=== PATIENT | male | born 1985 | race Caucasian/White ===

== ENCOUNTER 2018-09-28 08:33 | Emergency (ER) | payer MEDICARE, MEDICAID, SELFPAY ==
[2018-09-28 08:37] VITALS: BP 132/94; PULSE 113; RESP 18; TEMP 37.3; O2SAT 97
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
[2018-09-28 09:23] VITALS: BP 132/94; PULSE 113; RESP 18; TEMP 37.1; O2SAT 97
== END 2018-09-28 09:25 | disposition home or self-care (01) ==
LOC: ER 09:19
PROVIDERS: Emergency Provider Student in an Organized Health Care Education/Training Program; PCP Family Medicine
DX: S70.01XA Contusion of right hip, initial encounter (principal); R51 Headache; S61.254A Open bite of right ring finger without damage to nail, initial encounter; Y04.8XXA Assault by other bodily force, initial encounter
CPT/HCPCS: 99283; 73502

== ENCOUNTER 2019-04-19 14:58 | Outpatient (CLI) | payer MEDICARE, MEDICAID, SELFPAY ==
[2019-04-20 09:31] LABS: HIV-1/2 Ag & Ab Screen Negative (NEGAT); Hepatitis C Ab w Rflx HCV PCR Negative (NEGAT)
[2019-04-23 14:29] LABS: Chlamydia Result Negative; GC Result Negative; Specimen Description URINE
== END 2019-04-19 15:18 ==
PROVIDERS: PCP Family Medicine; Visit Provider Family Medicine
DX: Z11.59 Encounter for screening for other viral diseases (principal); Z11.4 Encounter for screening for human immunodeficiency virus [HIV]; Z11.3 Encounter for screening for infections with a predominantly sexual mode of transmission; F90.0 Attention-deficit hyperactivity disorder, predominantly inattentive type; K62.5 Hemorrhage of anus and rectum
CPT/HCPCS: 36415; 86803; 87389; 87491; 87591

== ENCOUNTER 2019-07-24 08:00 | Inpatient (IN) | payer MEDICARE, MEDICAID, SELFPAY ==
[2019-07-24] VITALS (76 sets, daily range): BP systolic 114–137; BP diastolic 73–87; PULSE 89–118; RESP 12–31; TEMP 36–37.6; O2SAT 87–98
--- NOTE | 2019-07-24 08:54 | ED.GENADUL_ITS ---
Discharge Plan Disposition Patient Disposition: [facility] INPATIENT Condition: Stable Discharge Details Chief Complaint: Abd Prob Clinical Impression: Colitis, Unintentional Tylenol overdose Admit Date/Time: 07/24/19 11:17 Admit Provider: Sharon Pride Attending Provider: Sharon Pride Primary Care Provider: Julian Bishop ED Provider: Peace Hudson Discharge Data Discharge Date/Time-TO BE ENTERED AT DEPARTURE: 07/24/19 12:20 Medical Decision Making 0830 -- 33-year-old male with a history of schizoid personality disorder, ADHD presents with diffuse intermittent dull aching abdominal pain and bloody diarrhea for the past 4 months, now more intense and constant for the past month and worse over the past week. Denies recent travel, antibiotics. Family history of Crohn's disease. He states he was a former heavy alcohol drinker, but has stopped over the past month. Patient was seen twice at [facility] in the past 2 weeks for the same complaint. First in the ED and diagnosed with bacterial infection discharged. Then he returned when symptoms worsened and he was admitted and diagnosed with colitis and had multiple CAT scans and was treated with antibiotics. He states he left AMA from the hospital yesterday when he feels that staff was lying about his bowel movements, and he did not feel safe there as he states the nurse accused him of taking drugs which he states he was not. He states the nurse acc used him of taking drugs because I was drowsy there. He states he was receiving oxycodone every 4 hours and he feels now his symptoms are worse because he is withdrawing from the oxycodone. He also states he was hearing and seeing things and hallucinating. He states he was hearing people scream and seeing squiggly lines on the murray. He states he was supposed to have a colonoscopy while admitted but they held this due to him still having loose stools. He also states the doctor was about to do the colonoscopy when the nurse told him he was having formed stools but he states the nurse was lying about this and when he told staff the truth that his stool was still diarrhea, they did not do the colonoscopy. He states last night he took 10 tabs of extra strength Tylenol to help with the pain. He denies any suicidal ideation. Patient appears pale. Heart rate 100s. Afebrile. His abdomen is mildly tense and diffusely tender but no rigidity. Normal exam. Differential diagnosis includes colitis, infectious diarrhea, diverticulitis, gastritis, hemorrhoids. Will place an IV, bolus IV fluids, morphine, screening labs, type and screen, Tylenol level, and CT abdomen and pelvis. 1000 --labs reviewed. Normal white blood cell count. Hemoglobin 12. Platelets 700. Potassium 3.1, will replete. AST 112, has been in the 300s in 2014, ALT 88, has been in the 100s in 2014. Lipase normal. Tylenol level 32. CT notes infectious versus inflammatory colitis. With patient's family history of Crohn's disease, could certainly be inflammatory colitis. 1010 --Case discussed with poison control recommend treating with N- acetylcysteine as the toxic dose that recommends treatment 12 hours postingestion would be 30 and patient is 33. Case discussed with patient again at bedside and he specifically said earlier that he took all the Tylenol last evening but now he is stating he thinks he took more than 10 and he has been taking them this morning. Discussed again with poison control and they are still recommending treatment with NAC. 1030 --discussed with hospitalist who accepts patient for admission. Patient is hemodynamically stable. Medical Records Medical records reviewed: Yes I reviewed the patient's medical records. Imaging Data Radiologic Study: Radiologist's impression: CT ABDOMEN PELVIS W CLINICAL HISTORY: diffuse abd pain, r/o acute abdominal process, BLOOD IN STOOL,? COLITIS OR DIVERTICULITIS TECHNIQUE: Imaging Protocol: Axial computed tomography images with coronal and sagittal reformatted images were created and reviewed CONTRAST MATERIAL: Intravenous: Omnipaque 350 Contrast volume:100 mL contrast route:IV - Oral: No COMPARISON: No exams were available for comparison FINDINGS: ABDOMEN: Lung Bases: Unremarkable. Liver: There does appear to be diffuse decreased attenuation of the liver suggesting hepatic steatosis. No hepatic mass is seen. The portal, superior mesenteric and splenic veins are patent Gallbladder and biliary tract: No radiodense calculus or dilation. Pancreas: Normal density, no abnormal calcifications or inflammatory process. Spleen: Normal. Kidneys: Normal size, contour and axis. No radiodense stones or obstructive uropathy. There are few tiny hypodensities seen in the kidneys bilaterally. They are too small for further characterization. These likely reflect small cysts. No suspicious solid mass is seen in the kidneys. Adrenal glands: No masses seen. Abdominal Aorta: Abdominal portion non-dilated. PELVIS: Bladder: Symmetric distention, no gross wall thickening. Bowel: There is diffuse moderate thickening of the wall of the colon extending from the ascending colon to the rectum. No evidence of diverticulosis is seen. There is no pneumatosis. Pericolonic inflammatory changes are seen. There is no evidence of acute appendicitis. Peritoneal cavity: No ascites, collection or mesenteric inflammatory response. Bones: Within normal limits for the patient's age. Reproductive organs: Within normal limits. Lymph nodes: There are mildly enlarged lymph nodes seen in the right lower quadrant of the abdomen. These are likely reactive. Impression: Diffuse moderate thickening of the wall of the colon from the ascending colon to the rectum. Inflammatory colitis should be considered. Infectious colitis cannot be entirely excluded. No evidence of pneumoperitoneum or abscess. These findings were discussed with the emergency department on the date of the examination. Lab Data Lab results reviewed: Yes I reviewed the patient's lab results. Labs: 07/24/19 11:36 Stool Clostridioides difficile Screen - Pending Laboratory Tests Range/Units 07/24/19 07/24/19 07/24/19 08:18 08:18 08:18 WBC (4.4-10.8) k/cumm 7.80 RBC (4.50-6.00) m/cumm 4.82 Hgb (13.5-17.5) g/dL 12.2 L Hct (40.0-50.0) % 38.9 L MCV (80-95) fL 80.7 MCH (27.0-33.0) pg 25.3 L MCHC (32.0-36.0) g/dL 31.4 L RDW (11.8-14.1) % 15.6 H Plt Count (130-400) x1000/uL 700 H MPV (8.0-11.0) fL 8.5 Immature Gran % 0.0 Neutrophils % 65.0 Band Neutrophils % % 6.0 Lymphocytes % 12.0 Monocytes % 13.0 Eosinophils % 4.0 Basophils % 0.0 Absolute Neutrophils (1.2-6.7) k/cumm 5.54 Absolute Lymphocytes (1.2-3.4) k/cumm 0.94 L Absolute Monocytes (0.11-0.7) k/cumm 1.01 H Absolute Eosinophils (0.0-0.7) k/cumm 0.31 Absolute Basophils (0.0-0.2) k/cumm 0.00 Differential Comment Manual differential RBC Morphology See below Polychromasia Present Poikilocytosis 2+ Sodium (136-145) mmol/L 140 Potassium (3.5-5.1) mmol/L 3.1 L Chloride (98-107) mmol/L 102 Carbon Dioxide (21.0-32.0) mmol/L 26.7 Anion Gap (3-11) mmol/L 11.3 H BUN (7-18) mg/dL 4 L Creatinine (0.70-1.30) mg/dL 0.99 Estimated GFR/1.73 m2 (mL/min/1.73m2) >= 60.00 Glucose (74-106) mg/dL 128 H Calcium (8.5-10.1) mg/dL 8.4 L Total Bilirubin (0.2-1.0) mg/dL 0.4 AST (15-37) U/L 112 H ALT (16-63) U/L 88 H Alkaline Phosphatase (46-116) U/L 171 H Total Protein (6.4-8.2) g/dL 7.2 Albumin (3.4-5.0) g/dL 2.1 L Lipase (73-393) U/L 78 Salicylates (2.8-20.0) mg/dL Urine Opiates Screen (Negative) Urine Methadone Screen (Negative) Acetaminophen (10-30) ug/mL 32 H Ur Barbiturates Screen (Negative) Ur Tricyclics Screen (Negative) Ur Amphetamines Screen (Negative) U Benzodiazepines Scrn (Negative) Urine Cocaine Screen (Negative) Ur THC Screen (Negative) Patient ABO/Rh Antibody Screen Range/Units 07/24/19 07/24/19 07/24/19 08:18 08:18 11:04 WBC (4.4-10.8) k/cumm RBC (4.50-6.00) m/cumm Hgb (13.5-17.5) g/dL Hct (40.0-50.0) % MCV (80-95) fL MCH (27.0-33.0) pg MCHC (32.0-36.0) g/dL RDW (11.8-14.1) % Plt Count (130-400) x1000/uL MPV (8.0-11.0) fL Immature Gran % Neutrophils % Band Neutrophils % % Lymphocytes % Monocytes % Eosinophils % Basophils % Absolute Neutrophils (1.2-6.7) k/cumm Absolute Lymphocytes (1.2-3.4) k/cumm Absolute Monocytes (0.11-0.7) k/cumm Absolute Eosinophils (0.0-0.7) k/cumm Absolute Basophils (0.0-0.2) k/cumm Differential Comment RBC Morphology Polychromasia Poikilocytosis Sodium (136-145) mmol/L Potassium (3.5-5.1) mmol/L Chloride (98-107) mmol/L Carbon Dioxide (21.0-32.0) mmol/L Anion Gap (3-11) mmol/L BUN (7-18) mg/dL Creatinine (0.70-1.30) mg/dL Estimated GFR/1.73 m2 (mL/min/1.73m2) Glucose (74-106) mg/dL Calcium (8.5-10.1) mg/dL Total Bilirubin (0.2-1.0) mg/dL AST (15-37) U/L ALT (16-63) U/L Alkaline Phosphatase (46-116) U/L Total Protein (6.4-8.2) g/dL Albumin (3.4-5.0) g/dL Lipase (73-393) U/L Salicylates (2.8-20.0) mg/dL < 2.8 L Urine Opiates Screen (Negative) Positive A Urine Methadone Screen (Negative) Negative Acetaminophen (10-30) ug/mL Ur Barbiturates Screen (Negative) Negative Ur Tricyclics Screen (Negative) Negative Ur Amphetamines Screen (Negative) Negative U Benzodiazepines Scrn (Negative) Negative Urine Cocaine Screen (Negative) Negative Ur THC Screen (Negative) Negative Patient ABO/Rh A Positive Antibody Screen Negative ECG Data Attestation: I personally reviewed and interpreted this ECG (s) as follows: Interpretation: rate of 88, sinus, t wave inversion lead III, No acute ST elevat ion or depression. TN 150. QTc 450. QRS 90. HPI General Mode of arrival: ambulatory . Date/Time Provider Initiated Documentation: 07/24/19 08:12 . Limitations to Documentation: no limitations . Information obtained by: patient . History of Present Illness 33 year old M presents to the emergency department with the chief complaint of abdominal pain, diarrhea with rectal bleeding, Quality is described as aching and dull, and is localized to the abdomen. Patient reports no radiation. Patient started experiencing this month(s) (4 months, worse over the past month) and it has been constant. No relieving factors improve symptom(s), No exacerbating factors reported . Patient notes fever/chills, loss of appetite, malaise and nausea/vomiting (nausea, no vomiting); denies confusion, chest pain, cough, diaphoresis, headaches, rash, seizure, shortness of breath, syncope and weakness. Patient did receive the following treatments prior to arrival, none Related Data Home Medications Medication Instructions Recorded Confirmed melatonin 3 mg tablet 3 mg PO HS PRN tab 09/26/18 07/24/19 fluticasone propionate 50 2 spray ABRAHAM DAILY #15.8 gm 12/26/18 07/24/19 mcg/actuation nasal spray,suspension dextroamphetamine-amphetamine 30 30 mg PO BID #60 tab MDD 60 mg 05/17/19 07/24/19 mg tablet Previous Rx's Medication Instructions Recorded fluticasone propionate 50 2 spray ABRAHAM DAILY #15.8 gm 12/26/18 mcg/actuation nasal spray,suspension dextroamphetamine-amphetamine 30 30 mg PO BID #60 tab MDD 60 mg 05/17/19 mg tablet Allergies Allergy/AdvReac Type Severity Reaction Status Date / Time No Known Allergies Allergy Unverified 07/24/19 08:08 General Stated Complaint: Abd Prob JASEN: 3 Review of Systems All systems reviewed & are unremarkable except as noted in HPI and below Constitutional Constitutional: Reports as per HPI, Denies chills and Denies fever(s) Eyes Eyes: Denies blurry vision ENT Ears, Nose, Mouth, and Throat: Denies dizziness, Denies sore throat and Denies throat swelling Cardiovascular Cardiovascular: Denies chest pain and Denies dyspnea Respiratory Respiratory: Denies cough and Denies dyspnea Gastrointestinal Gastrointestinal: Reports abdominal pain, Reports hematochezia, Reports diarrhea, Reports nausea and Denies vomiting Genitourinary Genitourinary: Denies hematuria and Denies dysuria Musculoskeletal Musculoskeletal: Denies back pain and Denies numbness Integumentary/Breasts Skin/Breast: Denies lesions and Denies rash Neurologic Neurologic: Denies dizziness, Denies focal weakness and Denies numbness Allergic/Immunologic Allergic/Immunologic: Denies throat swelling [facility] Medical History (Updated 07/24/19 @ 13:56 by Sharon Pride MD) Allergic rhinitis (Chronic) Attention deficit hyperactivity disorder (ADHD), 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 Schizoid personality disorder (Chronic 08/18/15) Shoulder pain, right (Acute 08/18/15) Surgical History History of dental surgery (Acute) Family History Mother Crohn disease Paternal Grandfather Cancer head and neck cancer - smoker Other Diabetes Ulcerative colitis Social History Smoking/Tobacco Use Status: Former Tobacco Use Alcohol Intake: former Drug use: Occasionally Substance use type: marijuana Do you feel safe at home: No Do you feel safe in your relationship?: No Additional Social history: patient feels like he is going to from the abdominal pain. Exam Const General: cooperative, healthy appearing and no acute distress HENMT Head: normal to inspection Face and sinus: normal facial exam Eyes General: appearance normal, both eyes and all related structures EOM: EOM intact bilaterally Neck Neck: normal visual inspection and No submandibular swelling Lymphatic: no lymphadenopathy noted Chest Chest: normal inspection of the chest and no tenderness Resp Effort & Inspection: normal respiratory effort and able to speak in complete sentences Auscultation: clear to auscultation bilaterally Cardio Rate: regular rate Rhythm: regular rhythm GI Inspection: normal to inspection Palpation: not firm, not rigid and tender (diffuse, mild to moderate) Auscultation: normal bowel sounds and hypoactive bowel sounds Other: tensing of the abdomen with palpation. Male General Exam: Yes normal external exam Scrotum: scrotum normal Testes: no testicular swelling and no testicular tenderness Back/Spine/Pelvis Thoracic/Lumbar Spine: thoracic and lumbar spine normal to inspection Pelvis: no pain with anterior-posterior compression Skin General skin exam: no rashes or lesions noted and pallor Neuro General: alert, awake and oriented x3 Cognition: normal cognition Speech: speech normal Motor: muscle tone normal throughout Sensory Exam: no sensory deficits noted Extrem General: normal to inspection, full ROM, normal capillary refill, no calf t enderness bilaterally and no edema Psych Appearance: grossly normal Mental Status: mental status grossly normal Speech and Movement: speech and movement normal Affect: normal affect Course Vital Signs Vital signs: Vital Signs Temperature 97.7 F 07/24/19 08:03 Pulse 108 H 07/24/19 08:03 Respiratory Rate 16 07/24/19 08:03 Blood Pressure 137/87 07/24/19 08:03 Pulse Oximetry 98 07/24/19 08:03 Temperature 97.7 F 07/24/19 08:03 Temperature Source Temporal Artery Scan 07/24/19 08:03 Pulse 108 H 07/24/19 08:03 Respiratory Rate 16 07/24/19 08:03 Respiratory Effort Non-Labored 07/24/19 08:06 Blood Pressure 137/87 07/24/19 08:03 Blood Pressure Position Sitting 07/24/19 08:03 Pulse Oximetry 98 07/24/19 08:03 Oxygen Delivery Method Room Air 07/24/19 08:03 Oxygen Flow Rate 0 07/24/19 08:03 Pain Level 9 07/24/19 08:03
[2019-07-24] MEDS: Normal Saline Flush 10 ML SYR IVP ×6 (09:03→21:15)
[2019-07-24] MEDS: Normal Saline 1,000 ML 1000 ML IV (09:05)
[2019-07-24 09:11] LABS: Abs Immature Grans 0.02 k/cumm (0.0-0.09); HCT 38.9 % (40.0-50.0); HGB 12.2 g/dL (13.5-17.5); Mean Corp. HGB Concentration 31.4 g/dL (32.0-36.0); Mean Corpuscular Hemoglobin 25.3 pg (27.0-33.0); Mean Corpuscular Volume 80.7 fL (80-95); Mean Platelet Volume 8.5 fL (8.0-11.0); RBC 4.82 m/cumm (4.50-6.00); RBC Distribution Width 15.6 % (11.8-14.1)
[2019-07-24 09:23] LABS: ALT 88 U/L (16-63); AST 112 U/L (15-37); Albumin 2.1 g/dL (3.4-5.0); Alkaline Phosphatase 171 U/L (46-116); Anion Gap 11.3 mmol/L (3-11); BUN 4 mg/dL (7-18); Bilirubin, Total 0.4 mg/dL (0.2-1.0); CO2 26.7 mmol/L (21.0-32.0); CREATININE 0.99 mg/dL (0.70-1.30); Calcium 8.4 mg/dL (8.5-10.1); Chloride 102 mmol/L (98-107); Glucose 128 mg/dL (74-106); Lipase 78 U/L (73-393); Potassium 3.1 mmol/L (3.5-5.1); Sodium 140 mmol/L (136-145); Total Protein 7.2 g/dL (6.4-8.2)
[2019-07-24 09:30] LABS: Absolute Eosinophil Count 0.31 k/cumm (0.0-0.7); Absolute Lymphocyte Count 0.94 k/cumm (1.2-3.4); Absolute Monocyte Count 1.01 k/cumm (0.11-0.7); Absolute Neutrophil Count 5.54 k/cumm (1.2-6.7); Platelet Count 700 x1000/uL (130-400)
[2019-07-24 09:31] LABS: Diff Comment Manual Differential
[2019-07-24 09:32] LABS: Polychromasia Present
[2019-07-24 09:33] LABS: Poikilocytes 2+
--- NOTE | 2019-07-24 09:44 | DI.CT_ITS ---
EXAM: CT ABDOMEN PELVIS W CLINICAL HISTORY: diffuse abd pain, r/o acute abdominal process, BLOOD IN STOOL,? COLITIS OR DIVERTICULITIS TECHNIQUE: Imaging Protocol: Axial computed tomography images with coronal and sagittal reformatted images were created and reviewed CONTRAST MATERIAL: Intravenous: Omnipaque 350 Contrast volume:100 mL contrast route:IV - Oral: No COMPARISON: No exams were available for comparison FINDINGS: ABDOMEN: Lung Bases: Unremarkable. Liver: There does appear to be diffuse decreased attenuation of the liver suggesting hepatic steatosi s. No hepatic mass is seen. The portal, superior mesenteric and splenic veins are patent Gallbladder and biliary tract: No radiodense calculus or dilation. Pancreas: Normal density, no abnormal calcifications or inflammatory process. Spleen: Normal. Kidneys: Normal size, contour and axis. No radiodense stones or obstructive uropathy. There are few t iny hypodensities seen in the kidneys bilaterally. They are too small for further characterization. These likely reflect small cysts. No suspicious solid mass is seen in the kidneys. Adrenal glands: No masses seen. Abdominal Aorta: Abdominal portion non-dilated. PELVIS: Bladder: Symmetric distention, no gross wall thickening. Bowel: There is diffuse moderate thickening of the wall of the colon extending from the ascending col on to the rectum. No evidence of diverticulosis is seen. There is no pneumatosis. Pericolonic infl ammatory changes are seen. There is no evidence of acute appendicitis. Peritoneal cavity: No ascites, collection or mesenteric inflammatory response. Bones: Within normal limits for the patient's age. Reproductive organs: Within normal limits. Lymph nodes: There are mildly enlarged lymph nodes seen in the right lower quadrant of the abdomen. These are likely reactive. Impression: Diffuse moderate thickening of the wall of the colon from the ascending colon to the rectum. Inflamm atory colitis should be considered. Infectious colitis cannot be entirely excluded. No evidence of pneumoperitoneum or abscess. These findings were discussed with the emergency department on the date of the examination. DATA REPOSITORY: All CT scans at this facility are submitted to the National Radiology Data Registry (NRDR) Dose Index Registry (DIR) with the [employer] ([employer]). RADIATION OPTIMIZATION: All CT scans at this facility use at least one of these dose optimization te chniques: automated exposure control; mA and/or kV adjustment per patient size (includes targeted exa ms where dose is matched to clinical indication); or iterative reconstruction.
[2019-07-24] MEDS: Omnipaque 350 MG/ML 100 ML BTL IJ (09:53)
[2019-07-24] MEDS: Potassium Chloride 20 MEQ TABCR 40 MEQ PO (10:06)
[2019-07-24 10:10] LABS: Acetaminophen 32 ug/mL (10-30)
[2019-07-24 11:09] LABS: Salicylate < 2.8 mg/dL (2.8-20.0)
[2019-07-24] MEDS: HYDROmorphone 2 MG/ML VIAL 1 MG IVP ×3 (11:31→21:18)
[2019-07-24 11:38] LABS: *AMPHETAMINES SCREEN URINE Negative (Negative); *BARBITURATES SCREEN URINE Negative (Negative); *BENZODIAZEPINES SCREEN URINE Negative (Negative); Cannabinoids THC Negative (Negative); Cocaine Screen,Urine Negative (Negative); METHADONE URINE SCREEN Negative (Negative); OPIATES URINE SCREEN POSITIVE (Negative)
[2019-07-24 11:43] LABS: Tricyclic Antidepressants Negative (Negative)
[2019-07-24 12:12] LABS: Anion Gap 10.8 mmol/L (3-11); BUN 4 mg/dL (7-18); CO2 23.2 mmol/L (21.0-32.0); CREATININE 0.71 mg/dL (0.70-1.30); Calcium 7.6 mg/dL (8.5-10.1); Chloride 107 mmol/L (98-107); Glucose 123 mg/dL (74-106); Potassium 3.7 mmol/L (3.5-5.1); Sodium 141 mmol/L (136-145)
[2019-07-24 12:13] LABS: INR 1.6 (0.9-1.1); Prothrombin Time 15.7 sec (9.3-11.0)
--- NOTE | 2019-07-24 12:34 | W.PM.HP.N ---
Date of service: 07/24/19 Time of Service: 12:34 Assessment and Plan Assessment and plan (1) Tylenol toxicity: Status: Acute Assessment and plan: Appears to be due to an unintentional tylenol overdose. Will complete the 21 hour N-acetylcysteine infusion, monitoring tylenol levels, BMP, LFTs, and INR. Admit to the ICU. I am alarmed that the LFTs, which were normal at [facility] are now elevated - technically, he is now Child-Cochran Class B. His INR is also elevated (1.6). Low threshold to transfer to a tertiary care facility with a hepatology service. (2) Transaminitis: Status: Acute Assessment and plan: Does have a history of hepatic steatosis. In our system, we have LFTs which were elevated in 2013 - however, [facility] has record of them being normal within the last 2 weeks. Currently, qualifies for Child Srinivasa Class B, but it needs to be noted that his transaminitis is acute. As above - if worsens, will need transfer to a tertiary care center with Hepatology services. (3) Coagulopathy: Status: Acute Assessment and plan: Could be part of tylenol hepatotoxicity. However, given reports of BRBPR, I feel vitamin K would be beneficial. Will monitor serial INRs. (4) Acute hemorrhagic colitis: Status: Acute Assessment and plan: With family history of IBD (per patient, both Crohn's and UC). I am going to do further investigation into workup done at [place] - I could not see results of stool studies or ASCA/ANCA tests in the records that the ED had received. Will inquire. For now, obtain stool studies. Abstain from antibiotics - they were not helpful previously. Trial a low dose of budesonide (low dose because of the hepatic function situation above). He has not yet had a colonoscopy. Consult general surgery. Avoid chemical DVT ppx at this time (initiate if/when bleeding stopes - IBD is a hypercoagulable state). (5) Hypokalemia: Status: Chronic Assessment and plan: Replete and monitor. (6) Schizoid personality disorder: Status: Chronic Assessment and plan: For now, appears to be psychiatrically stable. Will monitor patient; treat anxiety as it occurs. (7) Attention deficit hyperactivity disorder (ADHD), predominantly inattentive type: Status: Chronic Assessment and plan: The patient had not been taking his dextroamphethamine for the last 2-3 weeks. Will abstain for now. (8) DVT prophylaxis: Status: Acute Assessment and plan: TEDs + SCDS - avoid chemical DVT ppx in setting of BRBPR (9) Discharge planning issues: Status: Acute Assessment and plan: Full code Admit to ICU. Total Critical Care Time 70 minutes. History of Present Illness History of Present Illness Chief Complaint: I hurt so much, I did not know what else to do, and all I had was tylenol Narrative: Mr Santana is a 33 year old male with PMHx of ADHD, schizoid personality, hepatic steatosis, strong family history of both Crohn's and, reportedly, UC, who was undergoing treatment for acute colitis for about the last 2 weeks at the [facility], but left AMA yesterday because, per patient, he had concerns about his safety there, whom the hospitalist service was asked to admit for an unintentional tylenol overdose in addition to management of the ongoing colitis. The patient states that his mother took him to the pharmacy yesterday after he left the hospitalist, and he picked up extra strength tylenol as well as tylenol PM. He states that he was taking 2 pills at a time, spaced out by several hours, and he estimates he took between 8 and 11 pills overall since last night. He was taking the tylenol for his diffuse abdominal pain from the colitis. He also felt that he might be going through opioid withdrawal (was on opioids at the [facility]), and he was hoping that the tylenol would help him with the symptoms. He adamantly denies any suicidal ideation, stating that he sleeps with a gun in the bedroom - if he wanted to kill himself, he had much easier ways of doing so! No, tylenol was for the pain. He states he did not know that tylenol can be this dangerous. In the ED, the patient was found to have mildly elevated LFTs, a tylenol level of 32 ug/mL. Poison control was consulted and recommended initiating infusion of N-acetylcysteine. Otherwise, the patient reports feeling cold and being unable to warm up, unintentional weight loss (he cannot tell me how much), denies sores in his mouth, dry/painful eyes, joint aches or rashes. Denies chest pain, shortness of breath, fevers, vomiting. He has had some nausea. There has been bright red blood in his stool, on and off. He cannot estimate an amount of blood. He endorses a lot of flatus. He feels better now than he did last night. He stated that antibiotics he was given for treatment of colitis did not help at all. He states that budesonide was the only thing that did help. Review of Systems Narrative: 12 systems reviewed. Pertinent positives and negatives are as per HPI. [facility] Medical History (Updated 07/24/19 @ 13:56 by Sharon Pride MD) Allergic rhinitis (Chronic) Attention deficit hyperactivity disorder (ADHD), 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 Schizoid personality disorder (Chronic 08/18/15) Shoulder pain, right (Acute 08/18/15) Surgical History History of dental surgery (Acute) Family History (Updated 07/24/19 @ 13:45 by Sharon Pride MD) Mother Crohn disease Paternal Grandfather Cancer head and neck cancer - smoker Other Diabetes Ulcerative colitis Social History Smoking/Tobacco Use Status: Former Tobacco Use Alcohol Intake: former Drug use: Occasionally Substance use type: marijuana Do you feel safe at home: No Do you feel safe in your relationship?: No Additional Social history: patient feels like he is going to from the abdominal pain. Meds Home Medications and Allergies Home Medications Medication Instructions Recorded Confirmed Type melatonin 3 mg tablet 3 mg PO HS PRN tab 09/26/18 07/24/19 History fluticasone propionate 50 2 spray ABRAHAM DAILY #15.8 gm 12/26/18 07/24/19 Rx mcg/actuation nasal spray,suspension dextroamphetamine-amphetamine 30 30 mg PO BID #60 tab MDD 60 mg 05/17/19 07/24/19 Rx mg tablet Allergies Allergy/AdvReac Type Severity Reaction Status Date / Time No Known Allergies Allergy Unverified 07/24/19 08:08 Exam Narrative Exam Narrative: General: Very anxious, pale male, easily scared, A&Ox3, appears cold and is covered in multiple blankets Neurological: A&Ox3, no focal deficits Psychiatric: anxious, but reasonable, can be reassured, not suicidal Skin: pale, cracked lips, otherwise, intact HEENT: Atraumatic, normocephalic, EOMI, dry MM, cracked lips, clear oropharynx, no lymphadenopathy, goiter, or JVD Cardiovascular: RRR, no m/r/g Lungs: CTAB Gastrointestinal: abdomen soft, mildly distended, diffusely tender Genitourinary: deferred Extremities: no e/c/c BLE's, 2+ pedal pulses B Results Imaging Additional studies: CT abdomen/pelvis w/ contrast: Diffuse moderate thickening of the wall of the colon from the ascending colon to the rectum. Inflammatory colitis should be considered. Infectious colitis cannot be entirely excluded. No evidence of pneumoperitoneum or abscess. EKG: NSR, HR 88, no acute ischemia, nonspecific ST-T changes Labs Result diagrams: 07/24/19 08:18 07/24/19 11:53 Labs: Laboratory Results - last 24 hr 07/24/19 07/24/19 07/24/19 08:18 08:18 08:18 WBC 7.80 RBC 4.82 Hgb 12.2 L Hct 38.9 L MCV 80.7 MCH 25.3 L MCHC 31.4 L RDW 15.6 H Plt Count 700 H MPV 8.5 Immature Gran % 0.0 Neutrophils % 65.0 Band Neutrophils % 6.0 Lymphocytes % 12.0 Monocytes % 13.0 Eosinophils % 4.0 Basophils % 0.0 Absolute Neutrophils 5.54 Absolute Lymphocytes 0.94 L Absolute Monocytes 1.01 H Absolute Eosinophils 0.31 Absolute Basophils 0.00 Differential Comment Manual differential RBC Morphology See below Polychromasia Present Poikilocytosis 2+ PT INR Sodium 140 Potassium 3.1 L Chloride 102 Carbon Dioxide 26.7 Anion Gap 11.3 H BUN 4 L Creatinine 0.99 Estimated GFR/1.73 m2 >= 60.00 Glucose 128 H Calcium 8.4 L Total Bilirubin 0.4 AST 112 H ALT 88 H Alkaline Phosphatase 171 H Total Protein 7.2 Albumin 2.1 L Lipase 78 Stool Campylobacter PCR Stool Salmonella PCR Stool Shigella PCR Salicylates Urine Opiates Screen Urine Methadone Screen Acetaminophen 32 H Ur Barbiturates Screen Ur Tricyclics Screen Ur Amphetamines Screen U Benzodiazepines Scrn Urine Cocaine Screen Ur THC Screen Shiga Toxin (PCR) Patient ABO/Rh Antibody Screen 07/24/19 07/24/19 07/24/19 08:18 08:18 11:04 WBC RBC Hgb Hct MCV MCH MCHC RDW Plt Count MPV Immature Gran % Neutrophils % Band Neutrophils % Lymphocytes % Monocytes % Eosinophils % Basophils % Absolute Neutrophils Absolute Lymphocytes Absolute Monocytes Absolute Eosinophils Absolute Basophils Differential Comment RBC Morphology Polychromasia Poikilocytosis PT INR Sodium Potassium Chloride Carbon Dioxide Anion Gap BUN Creatinine Estimated GFR/1.73 m2 Glucose Calcium Total Bilirubin AST ALT Alkaline Phosphatase Total Protein Albumin Lipase Stool Campylobacter PCR Stool Salmonella PCR Stool Shigella PCR Salicylates < 2.8 L Urine Opiates Screen Positive A Urine Methadone Screen Negative Acetaminophen Ur Barbiturates Screen Negative Ur Tricyclics Screen Negative Ur Amphetamines Screen Negative U Benzodiazepines Scrn Negative Urine Cocaine Screen Negative Ur THC Screen Negative Shiga Toxin (PCR) Patient ABO/Rh A Positive Antibody Screen Negative 07/24/19 07/24/19 07/24/19 11:53 11:53 12:15 WBC RBC Hgb Hct MCV MCH MCHC RDW Plt Count MPV Immature Gran % Neutrophils % Band Neutrophils % Lymphocytes % Monocytes % Eosinophils % Basophils % Absolute Neutrophils Absolute Lymphocytes Absolute Monocytes Absolute Eosinophils Absolute Basophils Differential Comment RBC Morphology Polychromasia Poikilocytosis PT 15.7 H INR 1.6 H Sodium 141 Potassium 3.7 Chloride 107 Carbon Dioxide 23.2 Anion Gap 10.8 BUN 4 L Creatinine 0.71 Estimated GFR/1.73 m2 >= 60.00 Glucose 123 H Calcium 7.6 L Total Bilirubin AST ALT Alkaline Phosphatase Total Protein Albumin Lipase Stool Campylobacter PCR Cancelled Stool Salmonella PCR Cancelled Stool Shigella PCR Cancelled Salicylates Urine Opiates Screen Urine Methadone Screen Acetaminophen Ur Barbiturates Screen Ur Tricyclics Screen Ur Amphetamines Screen U Benzodiazepines Scrn Urine Cocaine Screen Ur THC Screen Shiga Toxin (PCR) Cancelled Patient ABO/Rh Antibody Screen Last Vital Signs Temp 36.5 C 07/24/19 08:03 Pulse 93 H 07/24/19 12:00 Resp 16 07/24/19 12:10 BP 124/82 07/24/19 12:00 Pulse Ox 95 07/24/19 12:10
[2019-07-24] MEDS: Ondansetron 4 MG/2 ML VIAL IVP ×2 (12:53→20:03)
[2019-07-24 13:06] LABS: ALT 97 U/L (16-63); AST 120 U/L (15-37); Acetaminophen 13 ug/mL (10-30); Albumin 1.6 g/dL (3.4-5.0); Alkaline Phosphatase 140 U/L (46-116); Bilirubin, Total 0.4 mg/dL (0.2-1.0); Total Protein 5.4 g/dL (6.4-8.2)
[2019-07-24 13:22] LABS: Bilirubin, Direct 0.18 mg/dL (0.00-0.20)
[2019-07-24 13:30] LABS: C-Reactive Protein 8.73 mg/dL (0.0-0.3)
[2019-07-24] MEDS: Phytonadione 5 MG TABLET PO (14:30)
[2019-07-24] MEDS: LORazepam 2 MG/ML VIAL 0.5 MG IVP ×2 (14:31→21:18)
[2019-07-24 14:57] LABS: ESR 87 mm/hr (0-15)
--- NOTE | 2019-07-24 17:27 | W.SURGCON ---
Date of service: 07/24/19 Time of Service: 17:28 Assessment and Plan Assessment and plan (1) Acute hemorrhagic colitis: Status: Acute Assessment and plan: A\\ 33 year old with most likely inflammatory bowel disease. Patient has been started on low dose Budesonide. Unable to give him regular dose due to his liver toxicity from tylenol. P\\ Agree with clear liquid diet, budesonide or prednisone if that is better for his liver. Once better controlled then can do a colonoscopy as inpatient vs outpatient follow up with [place] [email or web address] History of Present Illness History of Present Illness Chief Complaint: Colitis Narrative: Mr Santana is a 33 year old male with PMHx of ADHD, schizoid personality, hepatic steatosis, strong family history of both Crohn's and, reportedly, UC, who was undergoing treatment for acute colitis for about the last 2 weeks at the [facility], but left AMA yesterday because, per patient, he had concerns about his safety there, whom the hospitalist service was asked to admit for an unintentional tylenol overdose in addition to management of the ongoing colitis. The patient states that his mother took him to the pharmacy yesterday after he left the hospitalist, and he picked up extra strength tylenol as well as tylenol PM. He states that he was taking 2 pills at a time, spaced out by several hours, and he estimates he took between 8 and 11 pills overall since last night. He was taking the tylenol for his diffuse abdominal pain from the colitis. He also felt that he might be going through opioid withdrawal (was on opioids at the [facility]), and he was hoping that the tylenol would help him with the symptoms. He adamantly denies any suicidal ideation, stating that he sleeps with a gun in the bedroom - if he wanted to kill himself, he had much easier ways of doing so! No, tylenol was for the pain. He states he did not know that tylenol can be this dangerous. In the ED, the patient was found to have mildly elevated LFTs, a tylenol level of 32 ug/mL. Poison control was consulted and recommended initiating infusion of N-acetylcysteine. Otherwise, the patient reports feeling cold and being unable to warm up, unintentional weight loss (he cannot tell me how much), denies sores in his mouth, dry/painful eyes, joint aches or rashes. Denies chest pain, shortness of breath, fevers, vomiting. He has had some nausea. There has been bright red blood in his stool, on and off. He cannot estimate an amount of blood. He endorses a lot of flatus. He feels better now than he did last night. He stated that antibiotics he was given for treatment of colitis did not help at all. He states that budesonide was the only thing that did help. Consults Consult date: 07/24/19 Requesting physician: Sharon Pride Review of Systems Constitutional Constitutional: Denies fatigue, Denies fever(s), Reports malaise and Denies weight loss Eyes Eyes: Denies change in vision ENT Ears, Nose, Mouth, and Throat: Denies dysphagia Cardiovascular Cardiovascular: Denies chest pain, Denies chest pain at rest, Denies rapid heart rate, Denies irregular heart rhythm, Denies palpitations, Denies dyspnea and Denies dyspnea on exertion Respiratory Respiratory: Denies dyspnea and Denies dyspnea on exertion Gastrointestinal Gastrointestinal: Reports as per HPI and Denies dysphagia Genitourinary Genitourinary: Denies hematuria and Denies dysuria Musculoskeletal Musculoskeletal: Reports system reviewed and no additional complaints, except as docu Endocrine Endocrine: Denies fatigue and Denies palpitations [facility] Medical History Allergic rhinitis (Chronic) Attention deficit hyperactivity disorder (ADHD), 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 Schizoid personality disorder (Chronic 08/18/15) Shoulder pain, right (Acute 08/18/15) Surgical History History of dental surgery (Acute) Family History Mother Crohn disease Paternal Grandfather Cancer head and neck cancer - smoker Other Diabetes Ulcerative colitis Social History Smoking/Tobacco Use Status: Former Tobacco Use Alcohol Intake: former Drug use: Occasionally Substance use type: marijuana Do you feel safe at home: No Do you feel safe in your relationship?: No Additional Social history: patient feels like he is going to from the abdominal pain. Exam Const General: cooperative, comfortable and no acute distress Orientation: alert and oriented x3 HENMT Head: normocephalic and atraumatic Eyes Pupils: PERRL Resp Effort & Inspection: normal respiratory effort Auscultation: clear to auscultation bilaterally Cardio Rate: regular rate Rhythm: regular rhythm Heart Sounds: no gallops, no murmurs and no rubs GI Inspection: normal to inspection Palpation: soft and tender (Lower abdomen LLQ >RLQ, no rebound) Auscultation: normal bowel sounds Results Last Vital Signs Temp 98.2 F 07/24/19 16:02 Pulse 103 H 07/24/19 13:05 Resp 24 07/24/19 13:05 BP 124/82 07/24/19 13:05 Pulse Ox 96 07/24/19 13:05 Labs Result diagrams: 07/24/19 08:18 07/24/19 11:53 Labs: Laboratory Results - last 24 hr 07/24/19 07/24/19 07/24/19 08:18 08:18 08:18 WBC 7.80 RBC 4.82 Hgb 12.2 L Hct 38.9 L MCV 80.7 MCH 25.3 L MCHC 31.4 L RDW 15.6 H Plt Count 700 H MPV 8.5 Immature Gran % 0.0 Neutrophils % 65.0 Band Neutrophils % 6.0 Lymphocytes % 12.0 Monocytes % 13.0 Eosinophils % 4.0 Basophils % 0.0 Absolute Neutrophils 5.54 Absolute Lymphocytes 0.94 L Absolute Monocytes 1.01 H Absolute Eosinophils 0.31 Absolute Basophils 0.00 Differential Comment Manual differential RBC Morphology See below Polychromasia Present Poikilocytosis 2+ ESR PT INR Sodium 140 Potassium 3.1 L Chloride 102 Carbon Dioxide 26.7 Anion Gap 11.3 H BUN 4 L Creatinine 0.99 Estimated GFR/1.73 m2 >= 60.00 Glucose 128 H Calcium 8.4 L Total Bilirubin 0.4 Conjugated Bilirubin AST 112 H ALT 88 H Alkaline Phosphatase 171 H C-Reactive Protein Total Protein 7.2 Albumin 2.1 L Lipase 78 Stool Campylobacter PCR Stool Salmonella PCR Stool Shigella PCR Salicylates Urine Opiates Screen Urine Methadone Screen Acetaminophen 32 H Ur Barbiturates Screen Ur Tricyclics Screen Ur Amphetamines Screen U Benzodiazepines Scrn Urine Cocaine Screen Ur THC Screen Shiga Toxin (PCR) Patient ABO/Rh Antibody Screen 07/24/19 07/24/19 07/24/19 08:18 08:18 08:18 WBC RBC Hgb Hct MCV MCH MCHC RDW Plt Count MPV Immature Gran % Neutrophils % Band Neutrophils % Lymphocytes % Monocytes % Eosinophils % Basophils % Absolute Neutrophils Absolute Lymphocytes Absolute Monocytes Absolute Eosinophils Absolute Basophils Differential Comment RBC Morphology Polychromasia Poikilocytosis ESR 87 H PT INR Sodium Potassium Chloride Carbon Dioxide Anion Gap BUN Creatinine Estimated GFR/1.73 m2 Glucose Calcium Total Bilirubin Conjugated Bilirubin AST ALT Alkaline Phosphatase C-Reactive Protein Total Protein Albumin Lipase Stool Campylobacter PCR Stool Salmonella PCR Stool Shigella PCR Salicylates < 2.8 L Urine Opiates Screen Urine Methadone Screen Acetaminophen Ur Barbiturates Screen Ur Tricyclics Screen Ur Amphetamines Screen U Benzodiazepines Scrn Urine Cocaine Screen Ur THC Screen Shiga Toxin (PCR) Patient ABO/Rh A Positive Antibody Screen Negative 07/24/19 07/24/19 07/24/19 08:18 11:04 11:17 WBC RBC Hgb Hct MCV MCH MCHC RDW Plt Count MPV Immature Gran % Neutrophils % Band Neutrophils % Lymphocytes % Monocytes % Eosinophils % Basophils % Absolute Neutrophils Absolute Lymphocytes Absolute Monocytes Absolute Eosinophils Absolute Basophils Differential Comment RBC Morphology Polychromasia Poikilocytosis ESR PT Cancelled INR Cancelled Sodium Potassium Chloride Carbon Dioxide Anion Gap BUN Creatinine Estimated GFR/1.73 m2 Glucose Calcium Total Bilirubin Conjugated Bilirubin AST ALT Alkaline Phosphatase C-Reactive Protein 8.73 H Total Protein Albumin Lipase Stool Campylobacter PCR Stool Salmonella PCR Stool Shigella PCR Salicylates Urine Opiates Screen Positive A Urine Methadone Screen Negative Acetaminophen Ur Barbiturates Screen Negative Ur Tricyclics Screen Negative Ur Amphetamines Screen Negative U Benzodiazepines Scrn Negative Urine Cocaine Screen Negative Ur THC Screen Negative Shiga Toxin (PCR) Patient ABO/Rh Antibody Screen 07/24/19 07/24/19 07/24/19 11:53 11:53 11:53 WBC RBC Hgb Hct MCV MCH MCHC RDW Plt Count MPV Immature Gran % Neutrophils % Band Neutrophils % Lymphocytes % Monocytes % Eosinophils % Basophils % Absolute Neutrophils Absolute Lymphocytes Absolute Monocytes Absolute Eosinophils Absolute Basophils Differential Comment RBC Morphology Polychromasia Poikilocytosis ESR PT 15.7 H INR 1.6 H Sodium 141 Potassium 3.7 Chloride 107 Carbon Dioxide 23.2 Anion Gap 10.8 BUN 4 L Creatinine 0.71 Estimated GFR/1.73 m2 >= 60.00 Glucose 123 H Calcium 7.6 L Total Bilirubin 0.4 Conjugated Bilirubin 0.18 AST 120 H ALT 97 H Alkaline Phosphatase 140 H C-Reactive Protein Total Protein 5.4 L Albumin 1.6 L Lipase Stool Campylobacter PCR Stool Salmonella PCR Stool Shigella PCR Salicylates Urine Opiates Screen Urine Methadone Screen Acetaminophen 13 Ur Barbiturates Screen Ur Tricyclics Screen Ur Amphetamines Screen U Benzodiazepines Scrn Urine Cocaine Screen Ur THC Screen Shiga Toxin (PCR) Patient ABO/Rh Antibody Screen 07/24/19 12:15 WBC RBC Hgb Hct MCV MCH MCHC RDW Plt Count MPV Immature Gran % Neutrophils % Band Neutrophils % Lymphocytes % Monocytes % Eosinophils % Basophils % Absolute Neutrophils Absolute Lymphocytes Absolute Monocytes Absolute Eosinophils Absolute Basophils Differential Comment RBC Morphology Polychromasia Poikilocytosis ESR PT INR Sodium Potassium Chloride Carbon Dioxide Anion Gap BUN Creatinine Estimated GFR/1.73 m2 Glucose Calcium Total Bilirubin Conjugated Bilirubin AST ALT Alkaline Phosphatase C-Reactive Protein Total Protein Albumin Lipase Stool Campylobacter PCR Cancelled Stool Salmonella PCR Cancelled Stool Shigella PCR Cancelled Salicylates Urine Opiates Screen Urine Methadone Screen Acetaminophen Ur Barbiturates Screen Ur Tricyclics Screen Ur Amphetamines Screen U Benzodiazepines Scrn Urine Cocaine Screen Ur THC Screen Shiga Toxin (PCR) Cancelled Patient ABO/Rh Antibody Screen
[2019-07-24] MEDS: POTASSIUM CHLORIDE/D5-0.9%NACL 1,000 ML 125 MEQ IV (17:42)
[2019-07-24] MEDS: Mylanta Suspension 30 ML CUP PO (20:23)
[2019-07-24] MEDS: SODIUM CHLORIDE 0.45% 1,000 ML 100 ML IV (20:24)
[2019-07-24 20:27] LABS: INR 1.7 (0.9-1.1); Prothrombin Time 16.5 sec (9.3-11.0)
[2019-07-24 20:35] LABS: BUN 2 mg/dL (7-18); CREATININE 0.73 mg/dL (0.70-1.30); Calcium 7.8 mg/dL (8.5-10.1); Chloride 103 mmol/L (98-107); Glucose 146 mg/dL (74-106); Potassium 3.6 mmol/L (3.5-5.1); Sodium 137 mmol/L (136-145)
[2019-07-24 20:40] LABS: ALT 106 U/L (16-63); AST 111 U/L (15-37); Albumin 1.6 g/dL (3.4-5.0); Alkaline Phosphatase 132 U/L (46-116); Bilirubin, Direct 0.15 mg/dL (0.00-0.20); Bilirubin, Total 0.3 mg/dL (0.2-1.0); Total Protein 5.7 g/dL (6.4-8.2)
[2019-07-24] MEDS: PHYTONADIONE 10 MG in Normal Saline 50 ML 150 MG IVPB (22:06)
[2019-07-25] VITALS (32 sets, daily range): BP systolic 111–127; BP diastolic 28–91; PULSE 88–127; RESP 11–29; TEMP 36.1–37.3; O2SAT 92–96
[2019-07-25] MEDS: HYDROmorphone 2 MG/ML VIAL 1 MG IVP ×6 (00:04→21:28)
[2019-07-25] MEDS: diphenhydrAMINE 25 MG CAP PO (00:05)
[2019-07-25] MEDS: LORazepam 2 MG/ML VIAL 0.5 MG IVP ×3 (03:40→20:46)
[2019-07-25] MEDS: SODIUM CHLORIDE 0.45% 1,000 ML 100 ML IV (06:09)
[2019-07-25 06:44] LABS: Abs Immature Grans 0.04 k/cumm (0.0-0.09); HCT 32.3 % (40.0-50.0); HGB 10.3 g/dL (13.5-17.5); Mean Corp. HGB Concentration 31.9 g/dL (32.0-36.0); Mean Corpuscular Hemoglobin 25.4 pg (27.0-33.0); Mean Corpuscular Volume 79.8 fL (80-95); Mean Platelet Volume 8.4 fL (8.0-11.0); Platelet Count 571 x1000/uL (130-400); RBC 4.05 m/cumm (4.50-6.00); RBC Distribution Width 15.6 % (11.8-14.1); White Blood Cell Count 8.09 k/cumm (4.4-10.8)
[2019-07-25 06:58] LABS: ALT 129 U/L (16-63); AST 120 U/L (15-37); Albumin 1.7 g/dL (3.4-5.0); Alkaline Phosphatase 149 U/L (46-116); BUN 2 mg/dL (7-18); Bilirubin, Direct 0.17 mg/dL (0.00-0.20); Bilirubin, Total 0.4 mg/dL (0.2-1.0); C-Reactive Protein 6.63 mg/dL (0.0-0.3); CREATININE 0.83 mg/dL (0.70-1.30); Chloride 101 mmol/L (98-107); Glucose 103 mg/dL (74-106); Magnesium 1.7 mg/dL (1.8-2.4); Potassium 3.2 mmol/L (3.5-5.1); Sodium 137 mmol/L (136-145); Total Protein 5.9 g/dL (6.4-8.2)
[2019-07-25 07:00] LABS: Acetaminophen < 2 ug/mL (10-30)
[2019-07-25 07:01] LABS: INR 1.3 (0.9-1.1); Prothrombin Time 13.3 sec (9.3-11.0)
--- NOTE | 2019-07-25 07:11 | W.PM.PROGNOT ---
Date of Service Date of service: 07/25/19 Time of Service: 07:11 Assessment and Plan Assessment and plan (1) Acute hemorrhagic colitis: Status: Acute Assessment and plan: Continue clear liquid diet. Encouraged use of a heating pad for abdominal cramping/pain. Consider possible Flexible Sigmoidoscopy for tissue biopsies to allow for further diagnosis. Subjective Subjective Interval history since last seen: patient reports he was able to get some sleep overnight, however currently has a stomach ache. Several loose BMs overnight and early this morning. Exam Const General: cooperative, healthy appearing and comfortable Orientation: alert and oriented x3 Resp Effort & Inspection: normal respiratory effort, no audible wheezes and no cough Objective Objective Clinical Data: Abnormal lab results 07/24/19 07/24/19 07/24/19 Range/Units 08:18 08:18 08:18 Hgb 12.2 L (13.5-17.5) g/dL Hct 38.9 L (40.0-50.0) % MCH 25.3 L (27.0-33.0) pg MCHC 31.4 L (32.0-36.0) g/dL RDW 15.6 H (11.8-14.1) % Plt Count 700 H (130-400) x1000/uL Absolute Lymphocytes 0.94 L (1.2-3.4) k/cumm Absolute Monocytes 1.01 H (0.11-0.7) k/cumm ESR (0-15) mm/hr PT (9.3-11.0) sec INR (0.9-1.1) Potassium 3.1 L (3.5-5.1) mmol/L Anion Gap 11.3 H (3-11) mmol/L BUN 4 L (7-18) mg/dL Glucose 128 H (74-106) mg/dL Calcium 8.4 L (8.5-10.1) mg/dL Magnesium (1.8-2.4) mg/dL AST 112 H (15-37) U/L ALT 88 H (16-63) U/L Alkaline Phosphatase 171 H (46-116) U/L C-Reactive Protein (0.0-0.3) mg/dL Total Protein (6.4-8.2) g/dL Albumin 2.1 L (3.4-5.0) g/dL Salicylates (2.8-20.0) mg/dL Urine Opiates Screen (Negative) Acetaminophen 32 H (10-30) ug/mL 07/24/19 07/24/19 07/24/19 Range/Units 08:18 08:18 08:18 Hgb (13.5-17.5) g/dL Hct (40.0-50.0) % MCH (27.0-33.0) pg MCHC (32.0-36.0) g/dL RDW (11.8-14.1) % Plt Count (130-400) x1000/uL Absolute Lymphocytes (1.2-3.4) k/cumm Absolute Monocytes (0.11-0.7) k/cumm ESR 87 H (0-15) mm/hr PT (9.3-11.0) sec INR (0.9-1.1) Potassium (3.5-5.1) mmol/L Anion Gap (3-11) mmol/L BUN (7-18) mg/dL Glucose (74-106) mg/dL Calcium (8.5-10.1) mg/dL Magnesium (1.8-2.4) mg/dL AST (15-37) U/L ALT (16-63) U/L Alkaline Phosphatase (46-116) U/L C-Reactive Protein 8.73 H (0.0-0.3) mg/dL Total Protein (6.4-8.2) g/dL Albumin (3.4-5.0) g/dL Salicylates < 2.8 L (2.8-20.0) mg/dL Urine Opiates Screen (Negative) Acetaminophen (10-30) ug/mL 07/24/19 07/24/19 07/24/19 Range/Units 11:04 11:53 11:53 Hgb (13.5-17.5) g/dL Hct (40.0-50.0) % MCH (27.0-33.0) pg MCHC (32.0-36.0) g/dL RDW (11.8-14.1) % Plt Count (130-400) x1000/uL Absolute Lymphocytes (1.2-3.4) k/cumm Absolute Monocytes (0.11-0.7) k/cumm ESR (0-15) mm/hr PT 15.7 H (9.3-11.0) sec INR 1.6 H (0.9-1.1) Potassium (3.5-5.1) mmol/L Anion Gap (3-11) mmol/L BUN (7-18) mg/dL Glucose (74-106) mg/dL Calcium (8.5-10.1) mg/dL Magnesium (1.8-2.4) mg/dL AST 120 H (15-37) U/L ALT 97 H (16-63) U/L Alkaline Phosphatase 140 H (46-116) U/L C-Reactive Protein (0.0-0.3) mg/dL Total Protein 5.4 L (6.4-8.2) g/dL Albumin 1.6 L (3.4-5.0) g/dL Salicylates (2.8-20.0) mg/dL Urine Opiates Screen Positive A (Negative) Acetaminophen (10-30) ug/mL 07/24/19 07/24/19 07/24/19 Range/Units 11:53 20:10 20:10 Hgb (13.5-17.5) g/dL Hct (40.0-50.0) % MCH (27.0-33.0) pg MCHC (32.0-36.0) g/dL RDW (11.8-14.1) % Plt Count (130-400) x1000/uL Absolute Lymphocytes (1.2-3.4) k/cumm Absolute Monocytes (0.11-0.7) k/cumm ESR (0-15) mm/hr PT 16.5 H (9.3-11.0) sec INR 1.7 H (0.9-1.1) Potassium (3.5-5.1) mmol/L Anion Gap (3-11) mmol/L BUN 4 L (7-18) mg/dL Glucose 123 H (74-106) mg/dL Calcium 7.6 L (8.5-10.1) mg/dL Magnesium (1.8-2.4) mg/dL AST 111 H (15-37) U/L ALT 106 H (16-63) U/L Alkaline Phosphatase 132 H (46-116) U/L C-Reactive Protein (0.0-0.3) mg/dL Total Protein 5.7 L (6.4-8.2) g/dL Albumin 1.6 L (3.4-5.0) g/dL Salicylates (2.8-20.0) mg/dL Urine Opiates Screen (Negative) Acetaminophen (10-30) ug/mL 07/24/19 07/25/19 07/25/19 Range/Units 20:10 06:00 06:00 Hgb (13.5-17.5) g/dL Hct (40.0-50.0) % MCH (27.0-33.0) pg MCHC (32.0-36.0) g/dL RDW (11.8-14.1) % Plt Count (130-400) x1000/uL Absolute Lymphocytes (1.2-3.4) k/cumm Absolute Monocytes (0.11-0.7) k/cumm ESR (0-15) mm/hr PT 13.3 H (9.3-11.0) sec INR 1.3 H (0.9-1.1) Potassium (3.5-5.1) mmol/L Anion Gap (3-11) mmol/L BUN 2 L (7-18) mg/dL Glucose 146 H (74-106) mg/dL Calcium 7.8 L (8.5-10.1) mg/dL Magnesium 1.7 L (1.8-2.4) mg/dL AST (15-37) U/L ALT (16-63) U/L Alkaline Phosphatase (46-116) U/L C-Reactive Protein (0.0-0.3) mg/dL Total Protein (6.4-8.2) g/dL Albumin (3.4-5.0) g/dL Salicylates (2.8-20.0) mg/dL Urine Opiates Screen (Negative) Acetaminophen < 2 L (10-30) ug/mL Vital Signs Temperature 36.8 C 07/25/19 04:07 Temperature Source Temporal Artery Scan 07/25/19 04:07 Pulse 88 07/25/19 04:07 Pulse Rhythm Regular 07/24/19 09:02 Pulse 108 H 07/25/19 00:20 Respiratory Rate 19 07/25/19 04:07 Respiratory Effort 07/25/19 04:07 Respiratory Depth Normal 07/25/19 04:07 Respiratory Pattern Normal 07/25/19 04:07 Blood Pressure 125/81 07/25/19 04:07 Blood Pressure Mean 95 07/25/19 04:07 Blood Pressure Position Supine 07/25/19 04:07 Pulse Oximetry 94 L 07/25/19 04:07 Oxygen Delivery Method Room Air 07/25/19 04:07 Oxygen Flow Rate 0 07/25/19 04:07 Pain Level 6 07/25/19 04:07 Intake & Output 07/24/19 07/25/19 07/25/19 18:59 06:59 18:59 Intake Total 1875.95 / 3519.45 1643.5 / 3519.45 Output Total 550 / 1175 625 / 1175 Balance 1325.95 / 2344.45 1018.5 / 2344.45 Weight 64.2 kg 64.2 kg Intake: IV 1775.95 / 3149.45 1373.5 / 3149.45 Oral 100 / 370 270 / 370 Output: Urine 300 / 500 200 / 500 Stool 250 / 675 425 / 675 Other: Urine Color Pale Urine Appearance Clear Urine Odor None Comment Mixed with diarrhea mixed with stool Stool Occult Blood Positive Positive Stool Characteristics Liquid Liquid Brown Brown Voiding Methods Bedside Commode Bedside Commode Laboratory Results WBC 7.80 k/cumm (4.4-10.8) 07/24/19 08:18 RBC 4.82 m/cumm (4.50-6.00) 07/24/19 08:18 Hgb 12.2 g/dL (13.5-17.5) L 07/24/19 08:18 Hct 38.9 % (40.0-50.0) L 07/24/19 08:18 MCV 80.7 fL (80-95) 07/24/19 08:18 MCH 25.3 pg (27.0-33.0) L 07/24/19 08:18 MCHC 31.4 g/dL (32.0-36.0) L 07/24/19 08:18 RDW 15.6 % (11.8-14.1) H 07/24/19 08:18 Plt Count 700 x1000/uL (130-400) H 07/24/19 08:18 MPV 8.5 fL (8.0-11.0) 07/24/19 08:18 Immature Gran % 0.0 07/24/19 08:18 Neutrophils % 65.0 07/24/19 08:18 Band Neutrophils % 6.0 % 07/24/19 08:18 Lymphocytes % 12.0 07/24/19 08:18 Monocytes % 13.0 07/24/19 08:18 Eosinophils % 4.0 07/24/19 08:18 Basophils % 0.0 07/24/19 08:18 Absolute Neutrophils 5.54 k/cumm (1.2-6.7) 07/24/19 08:18 Absolute Lymphocytes 0.94 k/cumm (1.2-3.4) L 07/24/19 08:18 Absolute Monocytes 1.01 k/cumm (0.11-0.7) H 07/24/19 08:18 Absolute Eosinophils 0.31 k/cumm (0.0-0.7) 07/24/19 08:18 Absolute Basophils 0.00 k/cumm (0.0-0.2) 07/24/19 08:18 Differential Comment Manual differential 07/24/19 08:18 RBC Morphology See below 07/24/19 08:18 Polychromasia Present 07/24/19 08:18 Poikilocytosis 2+ 07/24/19 08:18 ESR 87 mm/hr (0-15) H 07/24/19 08:18 PT 13.3 sec (9.3-11.0) H 07/25/19 06:00 INR 1.3 (0.9-1.1) H 07/25/19 06:00 Sodium 137 mmol/L (136-145) 07/24/19 20:10 Potassium 3.6 mmol/L (3.5-5.1) 07/24/19 20:10 Chloride 103 mmol/L (98-107) 07/24/19 20:10 Carbon Dioxide 23.0 mmol/L (21.0-32.0) 07/24/19 20:10 Anion Gap 11.0 mmol/L (3-11) 07/24/19 20:10 BUN 2 mg/dL (7-18) L 07/24/19 20:10 Creatinine 0.73 mg/dL (0.70-1.30) 07/24/19 20:10 Estimated GFR/1.73 m2 >= 60.00 (mL/min/1.73m2) 07/24/19 20:10 Glucose 146 mg/dL (74-106) H 07/24/19 20:10 Calcium 7.8 mg/dL (8.5-10.1) L 07/24/19 20:10 Magnesium 1.7 mg/dL (1.8-2.4) L 07/25/19 06:00 Total Bilirubin 0.3 mg/dL (0.2-1.0) 07/24/19 20:10 Conjugated Bilirubin 0.15 mg/dL (0.00-0.20) 07/24/19 20:10 AST 111 U/L (15-37) H 07/24/19 20:10 ALT 106 U/L (16-63) H 07/24/19 20:10 Alkaline Phosphatase 132 U/L (46-116) H 07/24/19 20:10 C-Reactive Protein 8.73 mg/dL (0.0-0.3) H 07/24/19 08:18 Total Protein 5.7 g/dL (6.4-8.2) L 07/24/19 20:10 Albumin 1.6 g/dL (3.4-5.0) L 07/24/19 20:10 Lipase 78 U/L (73-393) 07/24/19 08:18 Stool Campylobacter PCR Cancelled 07/24/19 12:15 Stool Salmonella PCR Cancelled 07/24/19 12:15 Stool Shigella PCR Cancelled 07/24/19 12:15 Salicylates < 2.8 mg/dL (2.8-20.0) L 07/24/19 08:18 Urine Opiates Screen Positive (Negative) A 07/24/19 11:04 Urine Methadone Screen Negative (Negative) 07/24/19 11:04 Acetaminophen < 2 ug/mL (10-30) L 07/25/19 06:00 Ur Barbiturates Screen Negative (Negative) 07/24/19 11:04 Ur Tricyclics Screen Negative (Negative) 07/24/19 11:04 Ur Amphetamines Screen Negative (Negative) 07/24/19 11:04 U Benzodiazepines Scrn Negative (Negative) 07/24/19 11:04 Urine Cocaine Screen Negative (Negative) 07/24/19 11:04 Ur THC Screen Negative (Negative) 07/24/19 11:04 Shiga Toxin (PCR) Cancelled 07/24/19 12:15 Patient ABO/Rh A Positive 07/24/19 08:18 Antibody Screen Negative 07/24/19 08:18
[2019-07-25 07:16] LABS: Absolute Basophil Count 0.08 k/cumm (0.0-0.2); Absolute Lymphocyte Count 1.78 k/cumm (1.2-3.4); Absolute Monocyte Count 0.89 k/cumm (0.11-0.7); Absolute Neutrophil Count 4.93 k/cumm (1.2-6.7); Atypical Lymphocytes % 3; Diff Comment Manual Differential; Hypochromasia 2+; Microcytosis 2+; Poikilocytes 1+; Polychromasia Present
[2019-07-25 07:30] LABS: ESR 57 mm/hr (0-15)
--- NOTE | 2019-07-25 07:58 | INITIAL_ITS ---
- If Service Date Differs Date of service: 07/25/19 Time of Service: 07:58 Care Management Initial Assess REASON FOR HOSPITALIZATION:: Tylenol toxicity PAST MEDICAL HISTORY/PAST SURGICAL HISTORY:: Medical History: Allergic rhinitis (Chronic). 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 Bacterial pneumonia (Inactive 10/18/13). Hypokalemia (Chronic). Neutropenia (Chronic). PTSD (post-traumatic stress disorder) (Chronic). Reactive attachment disorder, other psychiatric history NOS. Schizoid personality disorder (Chronic 08/18/15). Shoulder pain, right (Acute 08/18/15). Surgical History : History of dental surgery (Acute) PREVIOUS FUNCTIONAL STATUS/SOCIAL/FAMILY SUPPORTS:: Jordon lives alone in an apartment in [facility]. He states he is disabled and grew up in state custody. Jordon is independent with ADLs but states he needs help with cleaning since he is easily overwhelmed.Jordon denies receiving any community supports and reports that he is not very close to his parents or siblings. He has one cousin, Maurice Tinajero, that he identifies as a support. CURRENT FUNCTIONAL STATUS:: Jordon was sitting up in bed in the ICU when CM met with him. He was agreeable to conversing with CM and was very talkative. He rambled a bit and seemed to have issues with his mother and her handling of his finances. Jordon states that he does not have a community nurse case management and wants to find a new therapist but has a hard time finding one because of his anxiety. ADVANCE DIRECTIVES:: none on file Has patient been provided with information about the portal?: No Did the patient sign up for the portal?: No CODE STATUS:: Full Code INSURANCE COVERAGE / FINANCIAL ISSUES:: Medicare. Medicaid CURRENT HOME/COMMUNITY SERVICES/EQUIPMENT:: none PRIMARY CARE PHYSICIAN:: Julian Bishop POTENTIAL DISCHARGE NEEDS:: Follow up with PCP and discharge plan of care PATIENT/FAMILY EDUCATION NEEDS:: Discharge plan, limitations, follow up plan, Ask Me Three TRANSPORTATION:: via private vehicle with friend or family PLAN:: Jordon will likely be discharged home with no new services. A referral will be sent to his PCP office for follow up on community resourses for his mental health issues. He shashank follow up with his PCP and discharge plan of care. CM will continue to provide support to patient, family and discharge planning needs.
[2019-07-25] MEDS: Normal Saline Flush 10 ML SYR IVP ×3 (08:51→22:53)
[2019-07-25] MEDS: MAGNESIUM SULFATE 2 GM/50 ML BAG IVPB (08:51)
[2019-07-25 09:04] LABS: Iron 17 ug/dL (65-175); Total Iron Binding Capacity 96 ug/dL (250-450); Transferrin Sat 18 % (20-55)
[2019-07-25 09:34] LABS: Ferritin 284 ng/mL (26-388); Folate 7.5 ng/mL (8.6-20.0)
[2019-07-25 09:59] LABS: Vitamin B12 > 2000 pg/mL (193-986)
[2019-07-25] MEDS: POTASSIUM CHLORIDE/0.9% NACL 1,000 ML 100 MEQ IV (10:21)
[2019-07-25 11:22] LABS: Campylobacter PCR Negative (Negative); Salmonella PCR Negative (Negative); Shiga Toxin PCR Negative (Negative); Shigella/Enteroinvasive Ecoli Negative (Negative)
[2019-07-25 12:26] LABS: HCT 30.1 % (40.0-50.0); HGB 9.5 g/dL (13.5-17.5)
--- NOTE | 2019-07-25 12:46 | W.PM.PROGNOT ---
Date of Service Date of service: 07/25/19 Time of Service: 12:46 Assessment and Plan Assessment and plan (1) Tylenol toxicity: Status: Acute Assessment and plan: Appears to be due to an unintentional tylenol overdose. As LFTs have not normalized, will continue N-acetylcysteine infusion, per poison control center recommendations. Tylenol level normalized. Monitor BMP, LFTs, and INR. S/p Vitamin K. Keep in ICU. Low threshold to transfer to a tertiary care facility with a hepatology service. (2) Transaminitis: Status: Acute Assessment and plan: Improved, then plateaued - which is why NAC is being continued. Does have a history of hepatic steatosis. As above - if worsens, will need transfer to a tertiary care center with Hepatology services. (3) Coagulopathy: Status: Acute Assessment and plan: Could be part of tylenol hepatotoxicity. However, given reports of BRBPR, Received Vitamin K PO and IV. INR is better. Will monitor serial INRs. (4) Acute hemorrhagic colitis: Status: Acute Assessment and plan: With family history of IBD (per patient, both Crohn's and UC). General surgery on board. Presently on low dose budesonide (dose limited by acute liver injury). Discussing advancement of diet and possible switch to systemic steroids with general surgery. He has not yet had a colonoscopy. Might benefit from flex sig. Avoid chemical DVT ppx at this time (initiate if/when bleeding stops - IBD is a hypercoagulable state). (5) Hypokalemia: Status: Acute Assessment and plan: Replete and monitor. (6) Schizoid personality disorder: Status: Chronic Assessment and plan: psychiatrically stable, but irritable. Will monitor patient; treat anxiety as it occurs. (7) Attention deficit hyperactivity disorder (ADHD), predominantly inattentive type: Status: Chronic Assessment and plan: The patient had not been taking his dextroamphethamine for the last 2-3 weeks. Will abstain for now. (8) DVT prophylaxis: Status: Acute Assessment and plan: TEDs + SCDS - avoid chemical DVT ppx in setting of BRBPR (9) Discharge planning issues: Status: Acute Assessment and plan: Full code Keep in ICU Total Critical Care Time 40 minutes. Subjective Subjective Interval history since last seen: Mr Santana states he is feeling better finally and is hungry. He would at least like some bread - he says he is [place]. He states he does not want me to touch his abdomen - states the pain is in the region below his navel. Denies dizziness, chest pain, shortness of breath, nausea. Exam Narrative Exam Narrative: General: Very anxious male, A&Ox3, irritable, looks less pale today HEENT: EOMI, dry chopped lips Cardiovascular: RRR, no m/r/g Lungs: CTAB Gastrointestinal: abdomen soft when I place stethoscope on it, but the patient does not permit that I palpate, + bowel sounds Extremities: no e/c/c BLE's, 2+ pedal pulses B Objective Objective Clinical Data: Abnormal lab results 07/24/19 07/24/19 07/24/19 Range/Units 08:18 08:18 11:53 RBC (4.50-6.00) m/cumm Hgb (13.5-17.5) g/dL Hct (40.0-50.0) % MCV (80-95) fL MCH (27.0-33.0) pg MCHC (32.0-36.0) g/dL RDW (11.8-14.1) % Plt Count (130-400) x1000/uL Absolute Monocytes (0.11-0.7) k/cumm ESR 87 H (0-15) mm/hr PT (9.3-11.0) sec INR (0.9-1.1) Potassium (3.5-5.1) mmol/L BUN (7-18) mg/dL Glucose (74-106) mg/dL Calcium (8.5-10.1) mg/dL Magnesium (1.8-2.4) mg/dL Iron (65-175) ug/dL TIBC (250-450) ug/dL Transferrin % Sat (20-55) % AST 120 H (15-37) U/L ALT 97 H (16-63) U/L Alkaline Phosphatase 140 H (46-116) U/L C-Reactive Protein 8.73 H (0.0-0.3) mg/dL Total Protein 5.4 L (6.4-8.2) g/dL Albumin 1.6 L (3.4-5.0) g/dL Vitamin B12 (193-986) pg/mL Folate (8.6-20.0) ng/mL Acetaminophen (10-30) ug/mL 07/24/19 07/24/19 07/24/19 Range/Units 20:10 20:10 20:10 RBC (4.50-6.00) m/cumm Hgb (13.5-17.5) g/dL Hct (40.0-50.0) % MCV (80-95) fL MCH (27.0-33.0) pg MCHC (32.0-36.0) g/dL RDW (11.8-14.1) % Plt Count (130-400) x1000/uL Absolute Monocytes (0.11-0.7) k/cumm ESR (0-15) mm/hr PT 16.5 H (9.3-11.0) sec INR 1.7 H (0.9-1.1) Potassium (3.5-5.1) mmol/L BUN 2 L (7-18) mg/dL Glucose 146 H (74-106) mg/dL Calcium 7.8 L (8.5-10.1) mg/dL Magnesium (1.8-2.4) mg/dL Iron (65-175) ug/dL TIBC (250-450) ug/dL Transferrin % Sat (20-55) % AST 111 H (15-37) U/L ALT 106 H (16-63) U/L Alkaline Phosphatase 132 H (46-116) U/L C-Reactive Protein (0.0-0.3) mg/dL Total Protein 5.7 L (6.4-8.2) g/dL Albumin 1.6 L (3.4-5.0) g/dL Vitamin B12 (193-986) pg/mL Folate (8.6-20.0) ng/mL Acetaminophen (10-30) ug/mL 07/25/19 07/25/19 07/25/19 Range/Units 06:00 06:00 06:00 RBC 4.05 L (4.50-6.00) m/cumm Hgb 10.3 L (13.5-17.5) g/dL Hct 32.3 L (40.0-50.0) % MCV 79.8 L (80-95) fL MCH 25.4 L (27.0-33.0) pg MCHC 31.9 L (32.0-36.0) g/dL RDW 15.6 H (11.8-14.1) % Plt Count 571 H (130-400) x1000/uL Absolute Monocytes 0.89 H (0.11-0.7) k/cumm ESR 57 H (0-15) mm/hr PT (9.3-11.0) sec INR (0.9-1.1) Potassium 3.2 L (3.5-5.1) mmol/L BUN 2 L (7-18) mg/dL Glucose (74-106) mg/dL Calcium 8.0 L (8.5-10.1) mg/dL Magnesium 1.7 L (1.8-2.4) mg/dL Iron (65-175) ug/dL TIBC (250-450) ug/dL Transferrin % Sat (20-55) % AST 120 H (15-37) U/L ALT 129 H (16-63) U/L Alkaline Phosphatase 149 H (46-116) U/L C-Reactive Protein 6.63 H (0.0-0.3) mg/dL Total Protein 5.9 L (6.4-8.2) g/dL Albumin 1.7 L (3.4-5.0) g/dL Vitamin B12 (193-986) pg/mL Folate (8.6-20.0) ng/mL Acetaminophen < 2 L (10-30) ug/mL 07/25/19 07/25/19 07/25/19 Range/Units 06:00 06:00 06:00 RBC (4.50-6.00) m/cumm Hgb (13.5-17.5) g/dL Hct (40.0-50.0) % MCV (80-95) fL MCH (27.0-33.0) pg MCHC (32.0-36.0) g/dL RDW (11.8-14.1) % Plt Count (130-400) x1000/uL Absolute Monocytes (0.11-0.7) k/cumm ESR (0-15) mm/hr PT 13.3 H (9.3-11.0) sec INR 1.3 H (0.9-1.1) Potassium (3.5-5.1) mmol/L BUN (7-18) mg/dL Glucose (74-106) mg/dL Calcium (8.5-10.1) mg/dL Magnesium (1.8-2.4) mg/dL Iron 17 L (65-175) ug/dL TIBC 96 L (250-450) ug/dL Transferrin % Sat 18 L (20-55) % AST (15-37) U/L ALT (16-63) U/L Alkaline Phosphatase (46-116) U/L C-Reactive Protein (0.0-0.3) mg/dL Total Protein (6.4-8.2) g/dL Albumin (3.4-5.0) g/dL Vitamin B12 > 2000 H (193-986) pg/mL Folate 7.5 L (8.6-20.0) ng/mL Acetaminophen (10-30) ug/mL 07/25/19 Range/Units 12:10 RBC (4.50-6.00) m/cumm Hgb 9.5 L (13.5-17.5) g/dL Hct 30.1 L (40.0-50.0) % MCV (80-95) fL MCH (27.0-33.0) pg MCHC (32.0-36.0) g/dL RDW (11.8-14.1) % Plt Count (130-400) x1000/uL Absolute Monocytes (0.11-0.7) k/cumm ESR (0-15) mm/hr PT (9.3-11.0) sec INR (0.9-1.1) Potassium (3.5-5.1) mmol/L BUN (7-18) mg/dL Glucose (74-106) mg/dL Calcium (8.5-10.1) mg/dL Magnesium (1.8-2.4) mg/dL Iron (65-175) ug/dL TIBC (250-450) ug/dL Transferrin % Sat (20-55) % AST (15-37) U/L ALT (16-63) U/L Alkaline Phosphatase (46-116) U/L C-Reactive Protein (0.0-0.3) mg/dL Total Protein (6.4-8.2) g/dL Albumin (3.4-5.0) g/dL Vitamin B12 (193-986) pg/mL Folate (8.6-20.0) ng/mL Acetaminophen (10-30) ug/mL Vital Signs Temperature 37.3 C 07/25/19 12:19 Temperature Source Temporal Artery Scan 07/25/19 12:19 Pulse 109 H 07/25/19 12:19 Pulse Rhythm Regular 07/24/19 09:02 Pulse 115 H 07/25/19 12:00 Respiratory Rate 20 07/25/19 12:19 Respiratory Effort Non-Labored 07/25/19 12:19 Respiratory Depth Normal 07/25/19 12:19 Respiratory Pattern Normal 07/25/19 12:19 Blood Pressure 114/62 07/25/19 12:19 Blood Pressure Mean 79 07/25/19 12:19 Blood Pressure Position Supine 07/25/19 04:07 Pulse Oximetry 96 07/25/19 12:19 Oxygen Delivery Method Room Air 07/25/19 12:19 Oxygen Flow Rate 0 07/25/19 12:19 Pain Level 4 07/25/19 12:19 Intake & Output 07/24/19 07/25/19 07/25/19 23:59 11:59 23:59 Intake Total 1504.45 / 2514.45 2982.95 / 2982.95 Output Total 950 / 950 525 / 525 Balance 554.45 / 1564.45 2457.95 / 2457.95 Weight 64.2 kg 64.2 kg Intake: IV 1154.45 / 2164.45 2362.95 / 2362.95 Oral 350 / 350 620 / 620 Output: Urine 500 / 500 300 / 300 Stool 450 / 450 225 / 225 Other: Urine Color Pale Yellow Urine Appearance Clear Clear Urine Odor None Comment mixed with stool mixed with stool urinates in urinal and commode Stool Occult Blood Positive Positive Stool Characteristics Liquid Liquid Brown Voiding Methods Bedside Commode Bedside Commode Urinal Laboratory Results WBC 8.09 k/cumm (4.4-10.8) 07/25/19 06:00 RBC 4.05 m/cumm (4.50-6.00) L 07/25/19 06:00 Hgb 9.5 g/dL (13.5-17.5) L 07/25/19 12:10 Hct 30.1 % (40.0-50.0) L 07/25/19 12:10 MCV 79.8 fL (80-95) L 07/25/19 06:00 MCH 25.4 pg (27.0-33.0) L 07/25/19 06:00 MCHC 31.9 g/dL (32.0-36.0) L 07/25/19 06:00 RDW 15.6 % (11.8-14.1) H 07/25/19 06:00 Plt Count 571 x1000/uL (130-400) H 07/25/19 06:00 MPV 8.4 fL (8.0-11.0) 07/25/19 06:00 Immature Gran % 0.0 07/25/19 06:00 Neutrophils % 54.0 07/25/19 06:00 Band Neutrophils % 7.0 % 07/25/19 06:00 Lymphocytes % 19.0 07/25/19 06:00 Atypical Lymphs % 3 07/25/19 06:00 Monocytes % 11.0 07/25/19 06:00 Eosinophils % 5.0 07/25/19 06:00 Basophils % 1.0 07/25/19 06:00 Absolute Neutrophils 4.93 k/cumm (1.2-6.7) 07/25/19 06:00 Absolute Lymphocytes 1.78 k/cumm (1.2-3.4) 07/25/19 06:00 Absolute Monocytes 0.89 k/cumm (0.11-0.7) H 07/25/19 06:00 Absolute Eosinophils 0.40 k/cumm (0.0-0.7) 07/25/19 06:00 Absolute Basophils 0.08 k/cumm (0.0-0.2) 07/25/19 06:00 Differential Comment Manual differential 07/25/19 06:00 RBC Morphology See below 07/25/19 06:00 Polychromasia Present 07/25/19 06:00 Hypochromasia 2+ 07/25/19 06:00 Poikilocytosis 1+ 07/25/19 06:00 Microcytosis 2+ 07/25/19 06:00 ESR 57 mm/hr (0-15) H 07/25/19 06:00 PT 13.3 sec (9.3-11.0) H 07/25/19 06:00 INR 1.3 (0.9-1.1) H 07/25/19 06:00 Sodium 137 mmol/L (136-145) 07/25/19 06:00 Potassium 3.2 mmol/L (3.5-5.1) L 07/25/19 06:00 Chloride 101 mmol/L (98-107) 07/25/19 06:00 Carbon Dioxide 26.0 mmol/L (21.0-32.0) 07/25/19 06:00 Anion Gap 10.0 mmol/L (3-11) 07/25/19 06:00 BUN 2 mg/dL (7-18) L 07/25/19 06:00 Creatinine 0.83 mg/dL (0.70-1.30) 07/25/19 06:00 Estimated GFR/1.73 m2 >= 60.00 (mL/min/1.73m2) 07/25/19 06:00 Glucose 103 mg/dL (74-106) 07/25/19 06:00 Calcium 8.0 mg/dL (8.5-10.1) L 07/25/19 06:00 Magnesium 1.7 mg/dL (1.8-2.4) L 07/25/19 06:00 Iron 17 ug/dL (65-175) L 07/25/19 06:00 TIBC 96 ug/dL (250-450) L 07/25/19 06:00 Transferrin % Sat 18 % (20-55) L 07/25/19 06:00 Ferritin 284 ng/mL (26-388) 07/25/19 06:00 Total Bilirubin 0.4 mg/dL (0.2-1.0) 07/25/19 06:00 Conjugated Bilirubin 0.17 mg/dL (0.00-0.20) 07/25/19 06:00 AST 120 U/L (15-37) H 07/25/19 06:00 ALT 129 U/L (16-63) H 07/25/19 06:00 Alkaline Phosphatase 149 U/L (46-116) H 07/25/19 06:00 C-Reactive Protein 6.63 mg/dL (0.0-0.3) H 07/25/19 06:00 Total Protein 5.9 g/dL (6.4-8.2) L 07/25/19 06:00 Albumin 1.7 g/dL (3.4-5.0) L 07/25/19 06:00 Lipase 78 U/L (73-393) 07/24/19 08:18 Vitamin B12 > 2000 pg/mL (193-986) H 07/25/19 06:00 Folate 7.5 ng/mL (8.6-20.0) L 07/25/19 06:00 Stool Campylobacter PCR Cancelled 07/24/19 12:15 Stool Salmonella PCR Cancelled 07/24/19 12:15 Stool Shigella PCR Cancelled 07/24/19 12:15 Salicylates < 2.8 mg/dL (2.8-20.0) L 07/24/19 08:18 Urine Opiates Screen Positive (Negative) A 07/24/19 11:04 Urine Methadone Screen Negative (Negative) 07/24/19 11:04 Acetaminophen < 2 ug/mL (10-30) L 07/25/19 06:00 Ur Barbiturates Screen Negative (Negative) 07/24/19 11:04 Ur Tricyclics Screen Negative (Negative) 07/24/19 11:04 Ur Amphetamines Screen Negative (Negative) 07/24/19 11:04 U Benzodiazepines Scrn Negative (Negative) 07/24/19 11:04 Urine Cocaine Screen Negative (Negative) 07/24/19 11:04 Ur THC Screen Negative (Negative) 07/24/19 11:04 Shiga Toxin (PCR) Cancelled 07/24/19 12:15 Patient ABO/Rh A Positive 07/24/19 08:18 Antibody Screen Negative 07/24/19 08:18
--- NOTE | 2019-07-25 13:32 | PHARADMIT ---
Addendum entered by Dilshad Bustamante III 07/27/19 17:13: Pharmacy Note Subjective MD kelly patient feeling better, stool better formed and less bloody. Objective VS-OK Pain: 03/31 K+3.5H&H=down 8.3/26.8 Plts-523, Cidiff-negative Assessment Pain not controlled by Tramadol, switched back to IV Dilaudid. Flagy; continues Plan SCDs & teds for DVT proph. Received Remicade yesterday for crohn's/IBS, Venofer for iron replacement Addendum entered by Yesenia Avalos 07/26/19 17:32: Pharmacy Note Subjective Appears to be in the middle of a mental health crisis; ok to transfer out of ICU medically Objective AST/ALT /81, H/H 05/19.6, no bleeding but profuse watery diarrhea Assessment Colonoscopy revealed severe IBD throughout entire colon - has had ~10% response to IV steroids and likely worsening mental health state; biologic is to be started Plan remicade 5mg/kg ordered -- 300mg to be infused ~1800 this evening (had lost IV access earlier) Original Note: Admission Pharmacy Clinical Review Code Status Full Code Current Weight 64.2 kg Renally Cleared and Narrow Therapeutic Index Meds CrCl ~98ml/min QTc Value / Action Taken QTc 450 BP Control, Fever BP 114/62 Electrolytes reviewed Na 137, K+ 3.2, Mag 1.7 --replaced with 2 grams mag, KCl/Na infusion DVT Prophylaxis TEDs only (acute hemorrhagic colitis) Opiate Usage / Scheduled Bowel Regimen Ordered Hydromorphone PRN, No Plt/SCr for Heparin / Enoxaparin Plt 571, Scr 0.83 INR for Warfarin INR 1.3 H/H stable, WBC/Bands H/H 9.5/30.1, WBC 8.09 Antibiotic appropriateness metronidazole q6h started today by Dr. Esquivel Cultures and Sensitivities Cdiff negative Surgical ABX d/c within 24 hr DM control / Insulin Dosing Heart Failure (Check EF%) (KIAN's, B-Block, Diuretics) IV to PO Switch Home Meds Reviewed Yes - meds ok Home Meds Not Ordered dextroamp-amph salts (adderall), buspirone, melatonin Comments Bag #3 of N-acetylcysteine infusion repeated per poison control recommendation as LFTs had not yet normalized; tylenol level is normal
[2019-07-25] MEDS: Lactobacillus Acidophilus CAP 1 CAP PO ×2 (13:33→20:46)
[2019-07-25] MEDS: IRON SUCROSE COMPLEX 200 MG in Normal Saline 100 ML 400 MG IVPB (13:33)
--- NOTE | 2019-07-25 14:35 | W.PM.PROGNOT ---
Date of Service Date of service: 07/25/19 Time of Service: 14:35 Assessment and Plan Assessment and plan (1) Acute hemorrhagic colitis: Status: Acute Assessment and plan: d/w w/ Dr. Pride start high steriods hydrocort and flagyl plan bx in am IBD panel pd supportive care high prob that this is IBD related and not infectious. repeat stool cults and c. diff done at [facility] were neg. Informed consent is obtained for the procedural (explained in simple layman's terms that the pt and/or family could understand) explaining risks vs benefits and alternatives to the procedure and consequences if we do not do the procedure and need/rational for the procedure. Risks include but are not limited to: bleeding, infection, perforation of esophagus, stomach, colon, small intestines, bronchus or trachea, or PTX. This would necessitate emergency surgery to repair the damage w/ possible ostomy; and other associated complications w/ the required surgery. Also complications of anesthesia including aspiration, TX/CVA/. (2) IBD (inflammatory bowel disease): Status: Acute Subjective Subjective Interval history since last seen: pt still c/o diffuse abdominal pain. He is not sure if it is better or not. He is still have profuse bloody diarrhea- per pt and RN. Also his bedside commode is full and dose not look grossly blood. His mother had crohns and her brother has UC. pt has never had an episode of this before. No travel or bad food. denies trauma. He has had x3 CT's that are pretty much the same- d-ffuse bowel wall edema/thickenig. cults and c diaff were repeat at [facility] and or neg. He was treated w/ abx and was in pt at [facility] for 10 days. He left and came here. we atrted him on budnesonide. his crp has gone from 8 to 6 since this was done. Clinically and from his chart/hx it looks like he has some type of IBD. He has had minimal responese to low dose steriods. I think we should go to high dose IV hyrdrocort and also get a tissue bx. I d/w doing just a flex sig and bx for visualization and pathologic confirmation IBD panel was ordered as well. pt does not appear toxic or have toxic josé miguel-colon. Exam Const General: cooperative, healthy appearing, comfortable, no acute distress, well developed and well groomed Nutritional Appearance: average body habitus and well nourished Orientation: alert, awake and oriented x3 [facility] Head: normal to inspection, normocephalic and atraumatic Ears: hearing grossly normal bilaterally and external ears normal General nose exam: external nose normal Face and sinus: normal facial exam and sinuses nontender Mouth: oral mucosae normal, lip normal, tongue normal and moist mucous membranes Teeth and gingiva: dentition normal Eyes General: appearance normal, both eyes and all related structures Conjunctivae: conjunctivae normal Sclera: sclerae normal Pupils: PERRL Neck Neck: normal visual inspection and full ROM Chest Chest: normal inspection of the chest Resp Effort & Inspection: normal respiratory effort, able to speak in complete sentences, no cough, no nasal flaring, not tachypneic and no use of accessory muscles Auscultation: clear to auscultation bilaterally, no rales, no rhonchi and no wheezes Cardio Jugular venous pressure: no JVD Rate: regular rate Rhythm: regular rhythm GI Inspection: normal to inspection, no edema and distended Palpation: soft, no masses, tender and No ascites Auscultation: normal bowel sounds Other: mild diffuse tenderness. maybe more pronounced on the left side. no peritonitis. no prior surgery Skin General skin exam: no rashes or lesions noted Trauma: no lacerations or abrasions Other: no hx of joint pain or rashes. Neuro General: alert, oriented x3, oriented, gait normal, moves all extremities, no focal motor deficits and CN's II-XI intact bilaterally Cognition: normal cognition Speech: speech normal Gait: normal gait Motor: muscle tone normal throughout Extrem General: normal to inspection, full ROM and no clubbing, cyanosis or edema Other: He denies any history of joint pain or other arthritis type symptoms. He denies any history of rashes. He does not currently have any rashes or joint pain. Psych Appearance: grossly normal and well kempt Mental Status: mental status grossly normal Speech and Movement: speech and movement normal Affect: normal affect Other: Patient has an extensive history of a psychosocial component. At this time he is currently been medicated for anxiety and does not appear anxious. Objective Objective Clinical Data: Abnormal lab results 07/24/19 07/24/19 07/24/19 Range/Units 08:18 20:10 20:10 RBC (4.50-6.00) m/cumm Hgb (13.5-17.5) g/dL Hct (40.0-50.0) % MCV (80-95) fL MCH (27.0-33.0) pg MCHC (32.0-36.0) g/dL RDW (11.8-14.1) % Plt Count (130-400) x1000/uL Absolute Monocytes (0.11-0.7) k/cumm ESR 87 H (0-15) mm/hr PT 16.5 H (9.3-11.0) sec INR 1.7 H (0.9-1.1) Potassium (3.5-5.1) mmol/L BUN (7-18) mg/dL Glucose (74-106) mg/dL Calcium (8.5-10.1) mg/dL Magnesium (1.8-2.4) mg/dL Iron (65-175) ug/dL TIBC (250-450) ug/dL Transferrin % Sat (20-55) % AST 111 H (15-37) U/L ALT 106 H (16-63) U/L Alkaline Phosphatase 132 H (46-116) U/L C-Reactive Protein (0.0-0.3) mg/dL Total Protein 5.7 L (6.4-8.2) g/dL Albumin 1.6 L (3.4-5.0) g/dL Vitamin B12 (193-986) pg/mL Folate (8.6-20.0) ng/mL Acetaminophen (10-30) ug/mL 07/24/19 07/25/19 07/25/19 Range/Units 20:10 06:00 06:00 RBC (4.50-6.00) m/cumm Hgb (13.5-17.5) g/dL Hct (40.0-50.0) % MCV (80-95) fL MCH (27.0-33.0) pg MCHC (32.0-36.0) g/dL RDW (11.8-14.1) % Plt Count (130-400) x1000/uL Absolute Monocytes (0.11-0.7) k/cumm ESR (0-15) mm/hr PT (9.3-11.0) sec INR (0.9-1.1) Potassium 3.2 L (3.5-5.1) mmol/L BUN 2 L 2 L (7-18) mg/dL Glucose 146 H (74-106) mg/dL Calcium 7.8 L 8.0 L (8.5-10.1) mg/dL Magnesium 1.7 L (1.8-2.4) mg/dL Iron (65-175) ug/dL TIBC (250-450) ug/dL Transferrin % Sat (20-55) % AST 120 H (15-37) U/L ALT 129 H (16-63) U/L Alkaline Phosphatase 149 H (46-116) U/L C-Reactive Protein 6.63 H (0.0-0.3) mg/dL Total Protein 5.9 L (6.4-8.2) g/dL Albumin 1.7 L (3.4-5.0) g/dL Vitamin B12 (193-986) pg/mL Folate (8.6-20.0) ng/mL Acetaminophen < 2 L (10-30) ug/mL 07/25/19 07/25/19 07/25/19 Range/Units 06:00 06:00 06:00 RBC 4.05 L (4.50-6.00) m/cumm Hgb 10.3 L (13.5-17.5) g/dL Hct 32.3 L (40.0-50.0) % MCV 79.8 L (80-95) fL MCH 25.4 L (27.0-33.0) pg MCHC 31.9 L (32.0-36.0) g/dL RDW 15.6 H (11.8-14.1) % Plt Count 571 H (130-400) x1000/uL Absolute Monocytes 0.89 H (0.11-0.7) k/cumm ESR 57 H (0-15) mm/hr PT 13.3 H (9.3-11.0) sec INR 1.3 H (0.9-1.1) Potassium (3.5-5.1) mmol/L BUN (7-18) mg/dL Glucose (74-106) mg/dL Calcium (8.5-10.1) mg/dL Magnesium (1.8-2.4) mg/dL Iron 17 L (65-175) ug/dL TIBC 96 L (250-450) ug/dL Transferrin % Sat 18 L (20-55) % AST (15-37) U/L ALT (16-63) U/L Alkaline Phosphatase (46-116) U/L C-Reactive Protein (0.0-0.3) mg/dL Total Protein (6.4-8.2) g/dL Albumin (3.4-5.0) g/dL Vitamin B12 (193-986) pg/mL Folate (8.6-20.0) ng/mL Acetaminophen (10-30) ug/mL 07/25/19 07/25/19 Range/Units 06:00 12:10 RBC (4.50-6.00) m/cumm Hgb 9.5 L (13.5-17.5) g/dL Hct 30.1 L (40.0-50.0) % MCV (80-95) fL MCH (27.0-33.0) pg MCHC (32.0-36.0) g/dL RDW (11.8-14.1) % Plt Count (130-400) x1000/uL Absolute Monocytes (0.11-0.7) k/cumm ESR (0-15) mm/hr PT (9.3-11.0) sec INR (0.9-1.1) Potassium (3.5-5.1) mmol/L BUN (7-18) mg/dL Glucose (74-106) mg/dL Calcium (8.5-10.1) mg/dL Magnesium (1.8-2.4) mg/dL Iron (65-175) ug/dL TIBC (250-450) ug/dL Transferrin % Sat (20-55) % AST (15-37) U/L ALT (16-63) U/L Alkaline Phosphatase (46-116) U/L C-Reactive Protein (0.0-0.3) mg/dL Total Protein (6.4-8.2) g/dL Albumin (3.4-5.0) g/dL Vitamin B12 > 2000 H (193-986) pg/mL Folate 7.5 L (8.6-20.0) ng/mL Acetaminophen (10-30) ug/mL Vital Signs Temperature 37.3 C 07/25/19 12:19 Temperature Source Temporal Artery Scan 07/25/19 12:19 Pulse 109 H 07/25/19 12:19 Pulse Rhythm Regular 07/24/19 09:02 Pulse 115 H 07/25/19 12:00 Respiratory Rate 20 07/25/19 12:19 Respiratory Effort Non-Labored 07/25/19 12:19 Respiratory Depth Normal 07/25/19 12:19 Respiratory Pattern Normal 07/25/19 12:19 Blood Pressure 114/62 07/25/19 12:19 Blood Pressure Mean 79 07/25/19 12:19 Blood Pressure Position Supine 07/25/19 04:07 Pulse Oximetry 96 07/25/19 12:19 Oxygen Delivery Method Room Air 07/25/19 12:19 Oxygen Flow Rate 0 07/25/19 12:19 Pain Level 5 07/25/19 13:34 Intake & Output 07/24/19 07/25/19 07/25/19 23:59 11:59 23:59 Intake Total 1504.45 / 2514.45 2982.95 / 2982.95 Output Total 950 / 950 525 / 525 Balance 554.45 / 1564.45 2457.95 / 2457.95 Weight 64.2 kg 64.2 kg Intake: IV 1154.45 / 2164.45 2362.95 / 2362.95 Oral 350 / 350 620 / 620 Output: Urine 500 / 500 300 / 300 Stool 450 / 450 225 / 225 Other: Urine Color Pale Yellow Urine Appearance Clear Clear Urine Odor None Comment mixed with stool mixed with stool urinates in urinal and commode Stool Occult Blood Positive Positive Stool Characteristics Liquid Liquid Brown Voiding Methods Bedside Commode Bedside Commode Urinal Laboratory Results WBC 8.09 k/cumm (4.4-10.8) 07/25/19 06:00 RBC 4.05 m/cumm (4.50-6.00) L 07/25/19 06:00 Hgb 9.5 g/dL (13.5-17.5) L 07/25/19 12:10 Hct 30.1 % (40.0-50.0) L 07/25/19 12:10 MCV 79.8 fL (80-95) L 07/25/19 06:00 MCH 25.4 pg (27.0-33.0) L 07/25/19 06:00 MCHC 31.9 g/dL (32.0-36.0) L 07/25/19 06:00 RDW 15.6 % (11.8-14.1) H 07/25/19 06:00 Plt Count 571 x1000/uL (130-400) H 07/25/19 06:00 MPV 8.4 fL (8.0-11.0) 07/25/19 06:00 Immature Gran % 0.0 07/25/19 06:00 Neutrophils % 54.0 07/25/19 06:00 Band Neutrophils % 7.0 % 07/25/19 06:00 Lymphocytes % 19.0 07/25/19 06:00 Atypical Lymphs % 3 07/25/19 06:00 Monocytes % 11.0 07/25/19 06:00 Eosinophils % 5.0 07/25/19 06:00 Basophils % 1.0 07/25/19 06:00 Absolute Neutrophils 4.93 k/cumm (1.2-6.7) 07/25/19 06:00 Absolute Lymphocytes 1.78 k/cumm (1.2-3.4) 07/25/19 06:00 Absolute Monocytes 0.89 k/cumm (0.11-0.7) H 07/25/19 06:00 Absolute Eosinophils 0.40 k/cumm (0.0-0.7) 07/25/19 06:00 Absolute Basophils 0.08 k/cumm (0.0-0.2) 07/25/19 06:00 Differential Comment Manual differential 07/25/19 06:00 RBC Morphology See below 07/25/19 06:00 Polychromasia Present 07/25/19 06:00 Hypochromasia 2+ 07/25/19 06:00 Poikilocytosis 1+ 07/25/19 06:00 Microcytosis 2+ 07/25/19 06:00 Parasite Present See below 07/24/19 11:20 ESR 57 mm/hr (0-15) H 07/25/19 06:00 PT 13.3 sec (9.3-11.0) H 07/25/19 06:00 INR 1.3 (0.9-1.1) H 07/25/19 06:00 Sodium 137 mmol/L (136-145) 07/25/19 06:00 Potassium 3.2 mmol/L (3.5-5.1) L 07/25/19 06:00 Chloride 101 mmol/L (98-107) 07/25/19 06:00 Carbon Dioxide 26.0 mmol/L (21.0-32.0) 07/25/19 06:00 Anion Gap 10.0 mmol/L (3-11) 07/25/19 06:00 BUN 2 mg/dL (7-18) L 07/25/19 06:00 Creatinine 0.83 mg/dL (0.70-1.30) 07/25/19 06:00 Estimated GFR/1.73 m2 >= 60.00 (mL/min/1.73m2) 07/25/19 06:00 Glucose 103 mg/dL (74-106) 07/25/19 06:00 Calcium 8.0 mg/dL (8.5-10.1) L 07/25/19 06:00 Magnesium 1.7 mg/dL (1.8-2.4) L 07/25/19 06:00 Iron 17 ug/dL (65-175) L 07/25/19 06:00 TIBC 96 ug/dL (250-450) L 07/25/19 06:00 Transferrin % Sat 18 % (20-55) L 07/25/19 06:00 Ferritin 284 ng/mL (26-388) 07/25/19 06:00 Total Bilirubin 0.4 mg/dL (0.2-1.0) 07/25/19 06:00 Conjugated Bilirubin 0.17 mg/dL (0.00-0.20) 07/25/19 06:00 AST 120 U/L (15-37) H 07/25/19 06:00 ALT 129 U/L (16-63) H 07/25/19 06:00 Alkaline Phosphatase 149 U/L (46-116) H 07/25/19 06:00 C-Reactive Protein 6.63 mg/dL (0.0-0.3) H 07/25/19 06:00 Total Protein 5.9 g/dL (6.4-8.2) L 07/25/19 06:00 Albumin 1.7 g/dL (3.4-5.0) L 07/25/19 06:00 Lipase 78 U/L (73-393) 07/24/19 08:18 Vitamin B12 > 2000 pg/mL (193-986) H 07/25/19 06:00 Folate 7.5 ng/mL (8.6-20.0) L 07/25/19 06:00 Stool Description Not Applicable 07/24/19 11:20 Stool Campylobacter PCR Cancelled 07/24/19 12:15 Stool Salmonella PCR Cancelled 07/24/19 12:15 Stool Shigella PCR Cancelled 07/24/19 12:15 Salicylates < 2.8 mg/dL (2.8-20.0) L 07/24/19 08:18 Urine Opiates Screen Positive (Negative) A 07/24/19 11:04 Urine Methadone Screen Negative (Negative) 07/24/19 11:04 Acetaminophen < 2 ug/mL (10-30) L 07/25/19 06:00 Ur Barbiturates Screen Negative (Negative) 07/24/19 11:04 Ur Tricyclics Screen Negative (Negative) 07/24/19 11:04 Ur Amphetamines Screen Negative (Negative) 07/24/19 11:04 U Benzodiazepines Scrn Negative (Negative) 07/24/19 11:04 Urine Cocaine Screen Negative (Negative) 07/24/19 11:04 Ur THC Screen Negative (Negative) 07/24/19 11:04 ANCA Pattern Cancelled 07/25/19 06:00 Neutrophil-Specific Ab Cancelled 07/25/19 12:56 S.cerevisiae IgG Ab Cancelled 07/25/19 12:56 S.cerevisiae IgA Ab Cancelled 07/25/19 12:56 Shiga Toxin (PCR) Cancelled 07/24/19 12:15 Patient ABO/Rh A Positive 07/24/19 08:18 Antibody Screen Negative 07/24/19 08:18
[2019-07-25] MEDS: Hydrocortisone SOD SUC. 100 MG VIAL 120 MG IVP ×2 (14:38→22:52)
[2019-07-25] MEDS: metroNIDAZOLE 500 MG/100 ML BAG 100 MG IVPB ×2 (14:39→20:47)
[2019-07-25] MEDS: FAMOTIDINE 20 MG/50 ML BAG 200 MG IVPB (18:20)
[2019-07-26] VITALS (24 sets, daily range): BP systolic 118–143; BP diastolic 74–98; PULSE 61–127; RESP 13–26; TEMP 36–37.6; O2SAT 93–97
[2019-07-26] MEDS: POTASSIUM CHLORIDE/0.9% NACL 1,000 ML 100 MEQ IV (01:22)
[2019-07-26 01:24] LABS: ALT 102 U/L (16-63); AST 40 U/L (15-37)
[2019-07-26] MEDS: metroNIDAZOLE 500 MG/100 ML BAG 100 MG IVPB ×4 (01:24→21:43)
[2019-07-26 01:46] LABS: Acetaminophen < 2 ug/mL (10-30)
[2019-07-26] MEDS: HYDROmorphone 2 MG/ML VIAL 1 MG IVP ×4 (01:52→16:36)
[2019-07-26] MEDS: LORazepam 2 MG/ML VIAL 0.5 MG IVP ×5 (01:52→21:55)
[2019-07-26] MEDS: Normal Saline Flush 10 ML SYR IVP ×3 (01:52→21:54)
[2019-07-26] MEDS: FAMOTIDINE 20 MG/50 ML BAG 200 MG IVPB ×2 (03:55→16:15)
[2019-07-26] MEDS: Hydrocortisone SOD SUC. 100 MG VIAL 120 MG IVP ×3 (06:05→21:41)
--- NOTE | 2019-07-26 06:55 | NUR.NOTE ---
Pt has been been becoming increasingly anxious over the night with the biggest reason being the flex/sig procedure. Pt refused to have am labs drawn and could not understand why he needed them drawn again as blood was drawn at 0200 hours. left AC IV was leaking but pt would not allow nurse to change the dressing as he though that it was going to hurt. got oob to commode frequently and walked in room without the desk monitor on despite being asked to leave it on. developed hiccups about 0640 and was anxious also over this and was refusing the enema at that time. 0645-At this time, did allow Elina PATEL to change his IV dressing and was given 0.5mg of IV lorazepam
--- NOTE | 2019-07-26 07:52 | NUR.NOTE ---
0740-Dr. Esquivel called and notifed that pt refused enema. Pt had stated that he had thought it would be done in another room and that he would be doing it to himself. He refused enema when told it would be done in the room and that this nurse would be doing it. Dr. Esquivel asked that the pt be brought to the PACU now and without doing the enema
[2019-07-26] MEDS: Lidocaine 2% Pres-Free 5 ML VIAL (08:05)
[2019-07-26] MEDS: Midazolam 5 MG/5 ML VIAL (08:05)
--- NOTE | 2019-07-26 08:11 | NUR.NOTE ---
0600-lab in to draw am bloods. pt refused to have blood draw
--- NOTE | 2019-07-26 08:17 | BOWEL_PTH ---
PATIENT: Jordon Santana LOC: [facility]#:[id number] AGE/SX: 33/M ROOM: 211 RE07/24/[address]: Jeff Jacinto : 1985 BED: A DIS: 07/30/2019 SPEC #: [id number] RECD: 07/26/19 12:57 STATUS: RIGO RE #: [id number] JUN: 07/26/19 08:[address]: Sharon Pride DEPT: Surgical Specimen RECD BY: Ada Brian ENTERED: 07/26/19 13:00 SP TYPE: Bowel OTHR DR: MD Julian Carmona MD Tissues: 1 - BIOPSY BOWEL 2 - BIOPSY BOWEL 3 - BIOPSY BOWEL 4 - BIOPSY BOWEL Procedures: GROSS AND MICRO LEVEL 4 Comments: [id number]
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
--- NOTE | 2019-07-26 08:33 | W.COLOREPORT ---
Date of service: 07/26/19 Time of Service: 08:33 Colonoscopy Report Date of procedure: 07/26/19 Pre-op diagnosis general: abnl cy/diarrhea/rectal bbleeing Post-op diagnosis procedure note: other (UC) Anesthesia proc note operative: GETA Estimated blood loss (mL): 1 Procedure Description: sigmoid looks like IBD. no rectal sparing. favor UC.
[2019-07-26 09:08] LABS: Abs Immature Grans 0.06 k/cumm (0.0-0.09); HCT 28.6 % (40.0-50.0); Mean Corp. HGB Concentration 31.5 g/dL (32.0-36.0); Mean Corpuscular Hemoglobin 25.2 pg (27.0-33.0); Mean Corpuscular Volume 80.1 fL (80-95); Mean Platelet Volume 8.6 fL (8.0-11.0); Platelet Count 539 x1000/uL (130-400); RBC 3.57 m/cumm (4.50-6.00); RBC Distribution Width 15.5 % (11.8-14.1)
[2019-07-26 09:17] LABS: C-Reactive Protein 4.25 mg/dL (0.0-0.3)
[2019-07-26 09:26] LABS: Absolute Lymphocyte Count 1.01 k/cumm (1.2-3.4); Absolute Monocyte Count 0.21 k/cumm (0.11-0.7); Absolute Neutrophil Count 2.94 k/cumm (1.2-6.7); Atypical Lymphocytes % 5
[2019-07-26 09:27] LABS: Anisocytosis 1+; Diff Comment Manual Differential; Hypochromasia 1+; Microcytosis 1+; Poikilocytes 1+; Polychromasia Present
[2019-07-26] MEDS: Lactobacillus Acidophilus CAP 1 CAP PO ×3 (09:28→19:43)
[2019-07-26] MEDS: Folic Acid 1 MG TAB PO (09:28)
[2019-07-26 09:32] LABS: ALT 81 U/L (16-63); AST 31 U/L (15-37); Albumin 1.6 g/dL (3.4-5.0); Alkaline Phosphatase 162 U/L (46-116); Anion Gap 8.2 mmol/L (3-11); BUN 1 mg/dL (7-18); Bilirubin, Total 0.3 mg/dL (0.2-1.0); CO2 26.8 mmol/L (21.0-32.0); CREATININE 0.69 mg/dL (0.70-1.30); Calcium 7.9 mg/dL (8.5-10.1); Chloride 106 mmol/L (98-107); Ferritin 350 ng/mL (26-388); Glucose 133 mg/dL (74-106); Potassium 3.7 mmol/L (3.5-5.1); Sodium 141 mmol/L (136-145); TSH 0.23 uIU/mL (0.36-3.74); Total Protein 5.7 g/dL (6.4-8.2)
[2019-07-26 09:42] LABS: Bilirubin, Direct 0.12 mg/dL (0.00-0.20)
[2019-07-26 10:23] LABS: Iron 61 ug/dL (65-175); Total Iron Binding Capacity 103 ug/dL (250-450); Transferrin Sat 59 % (20-55)
--- NOTE | 2019-07-26 11:54 | COLE_ITS ---
JULY 26, 2019 PREOPATIVE DIAGNOSIS: Diffuse colonic thickening on CAT scan, bloody diarrhea and family history of inflammatory bowel disease. POSTOPERATIVE DIAGNOSIS: Inflammatory bowel disease, favor ulcerative colitis over Crohn's at this time. ANESTHESIA: General. ESTIMATED BLOOD LOSS: Less than 1 cc. COMPLICATIONS: None. PROCEDURE: Mr. Santana is 33-year-old male seen at the request of Dr. Pride regarding colonic abnormality noted on CAT scan and persistent bloody diarrhea despite steroids. Informed consent was obtained. I explained the risks and benefits of the procedure including but not limited to bleeding, infection, perforation, aspiration and other complications of the anesthesia. The patient was brought to the procedure room and placed in the supine position, anesthesia was administered per the Department of Anesthesia. The patient refused to do the prep so this is unprepped colon. Time out was performed. Digital rectal exam was performed prior to the anesthesia and shows no anal pathology. There is no sign of any hemorrhoids, fissures or fistulas. The previously lubricated Olympus scope was inserted into the rectum and insufflation was begun. The scoped was passed up through the rectosigmoid valves to about 40 cm. He has an unprepped colon and the colon is washed. From 40 cm. to the rectum, and including the rectum, there is diffuse erythema, hyperemia of the entire mucosa, signs of heaped up mucosa and pseudopolyposis, it is reddened and inflamed to a severe degree. We did not go across the splenic flexure because of the risk of perforation. This does appear to be diffuse inflammatory bowel disease. I would favor ulcerative colitis. It does include the rectum. Biopsies are taken at 40, 30, 20 cm and rectum, . with multiple bites per site. All specimens were retrieved. There is no significant bleeding noted although, again, the mucosa is very friable and bleeds readily. It does include the rectum. Biopsies were taken of the rectum itself. There is no anal pathology. The scope was then withdrawn. The patient had no complications. The patient was transferred to the Recovery Room in stable condition. cc: Dr. Sharon Pride
--- NOTE | 2019-07-26 12:07 | NUR.NOTE ---
Nursing Note: Poison Control called at 1205. 0900 Labs reviewed for AST, ALT and Alk Phosphate. Poison Control recommended discontinuing acetylcysteine now. Patient Case closed for poison control.
--- NOTE | 2019-07-26 12:11 | NUR.NOTE ---
Nursing Note: Patient increased anxiety and restlessness at this time. Patient noncomplaint with using call rios for nurse assist, repeatedly removing cardiac leads, blood pressure cuff and continually wandering in room. Nursing staff has continuous visual on patient and frequently in room to reattach cardiac monitoring, provide emotional support, PRN lorazepam and dilaudid for abdominal pain. MD and surgeon aware of patient's ongoing behavior.
[2019-07-26 12:32] LABS: HIV-1/2 Ag & Ab Screen Negative (Negative)
--- NOTE | 2019-07-26 13:34 | CMPROGNOTE_ITS ---
Care Management Progress Note S/O: CM met with Jordon throughout the day. He was advocating for leaving AMA though providers were concerned about him doing so. He required constant nursing support to regulate and remain at [facility]. He spoke with his father over the phone and his mother came for a visit. CM continues to follow. A: 33 year old male admitted to [facility] on 07/24/19 for Tylenol overdose, acute colitis P: Jordon was evaluated by [facility] oncology social worker who determined Jordon be permitted to leave AMA if he so chooses. Jordon requires a high level of emotional support. Anticipate increased community based supports if Jordon is receptive. CM continues to follow.
--- NOTE | 2019-07-26 14:22 | NUR.NOTE ---
5740 Patient put on own clothing, Patient lowered self to floor by own volition Nurse attempted to redirect and assist patient to feet. He refused to stand. Nurse offered pillow, patient refused this as well. Nurse left room, patient then stood independently. Nurse in to room to assess patient. No pain or injury reported at this time. .Nursing Note:
--- NOTE | 2019-07-26 14:50 | W.PM.PROGNOT ---
Date of Service Date of service: 07/26/19 Time of Service: 14:50 Assessment and Plan Assessment and plan (1) IBD (inflammatory bowel disease): Status: Acute Assessment and plan: Patient has had maybe 10% response clinically to steroids in the last 24 hours. I am also concerned that steroids may be contributing to some of his mental health issues. He has had no bleeding for the past 24 hours. He still having profuse watery diarrhea. He does definitely have less pain and has an appetite today. Given the severity of the disease I think it is worth starting him on Biologics. Risks include lymphoma and infections. His parents are in to see him. mental health consult has been placed. (2) Acute hemorrhagic colitis: Status: Acute (3) Tylenol toxicity: Status: Resolved Assessment and plan: resolved. (4) PTSD (post-traumatic stress disorder): Status: Chronic (5) Schizoid personality disorder: Status: Chronic (6) Attention deficit hyperactivity disorder (ADHD), predominantly inattentive type: Status: Chronic Subjective Subjective Interval history since last seen: Patient is seen and examined today post procedurally. He is very upset. His mother has Crohn's so he is familiar with the disease. I did discuss with him the findings at colonoscopy. The CT shows that this is involves the entire colon. We only scoped up until 40 cm today, but it does have the characteristics of inflammatory bowel disease. Whether this is UC or Crohn's is yet to be determined, and that will be determined by the biopsy/pathology. However at this time he does have severe IBD throughout the entirety of the colon. There is no anal disease but there is rectal involvement. I favor UC at this time. He has been on at least 24 hours of steroids and shows some improvement clinically. But at this point I think we need to do a more aggressive approach and Biologics are called for. At this point patient does appear to be in the midst of a mental health crisis. He does not appear to be able to understand and or processed the information that is being given to him. He wants to leave the hospital. He does not want to eat. At this time eating is contraindicated as it could push him over into acute toxic megacolon and acute crisis that might require surgery and total colectomy. He should continue to be on a low residue diet and started on Biologics. Risks of Biologics include severe life-threatening infections and a chance of lymphoma. Patient feels that his life is no longer worth living. He does not directly say that he wants to or that he is a plan. He just wants to leave the hospital. I did discuss this with the [facility] social workers with Dr. Coley. Dr. Coley and I both agree that he needs to be started on Biologics and needs a more address of approach. I would continue to maintain him on the steroids and not start weaning until we get some more improvement in his condition. I do feel that he is in the midst of a mental health crisis and he is not making good decisions or choices right now. I do not think he should be allowed to leave the hospital as he is potentially a danger to himself, however I think this determination needs to be done by mental health caseworkers. . He has no fever or chills. He has no he has minimal abdominal distention and pain. He is still having profuse watery diarrhea but no gross blood. He has been able to tolerate liquids. With no nausea and vomiting. He denies any chest pain or shortness of breath. He denies any productive cough. He denies any dysuria. He denies any lower extremity swelling or pain. He says that he is hungry. Exam Const General: comfortable, no acute distress, well developed, well groomed and anxious Nutritional Appearance: average body habitus Other: Patient is agitated and hostile. He appears pale and chronically ill. He has no joint pain or rashes. He is very upset by his diagnosis of a chronic disease and does not appear to be coping well with the diagnosis at this time. [facility] Head: normal to inspection, normocephalic and atraumatic Ears: hearing grossly normal bilaterally and external ears normal General nose exam: external nose normal Face and sinus: normal facial exam and sinuses nontender Mouth: oral mucosae normal, lip normal, tongue normal and moist mucous membranes Teeth and gingiva: dentition normal Eyes General: appearance normal, both eyes and all related structures Conjunctivae: conjunctivae normal Sclera: sclerae normal Pupils: PERRL Neck Neck: normal visual inspection and full ROM Chest Chest: normal inspection of the chest Resp Effort & Inspection: normal respiratory effort, able to speak in complete sentences, no cough, no nasal flaring, not tachypneic and no use of accessory muscles Auscultation: clear to auscultation bilaterally, no rales, no rhonchi and no wheezes Cardio Jugular venous pressure: no JVD Rate: regular rate Rhythm: regular rhythm GI Inspection: normal to inspection, no edema and distended Palpation: soft, no hernias, no masses, tender and No ascites Auscultation: normal bowel sounds Rectal Exam: visual inspection normal and heme positive stool Other: Perianal exam is negative. Anus shows no fissures tears hemorrhoids or infections. There is rectal involvement Skin General skin exam: no rashes or lesions noted Trauma: no lacerations or abrasions Other: No joint pain or swelling Neuro General: alert, oriented x3, oriented, gait normal, moves all extremities, no focal motor deficits and CN's II-XI intact bilaterally Cognition: normal cognition Speech: speech normal Gait: normal gait Motor: muscle tone normal throughout Extrem General: normal to inspection, full ROM and no clubbing, cyanosis or edema Psych Appearance: grossly normal and well kempt Mental Status: mental status grossly normal Speech and Movement: speech and movement normal Affect: normal affect Objective Objective Clinical Data: Abnormal lab results 07/26/19 07/26/19 07/26/19 Range/Units 01:01 09:00 09:00 WBC (4.4-10.8) k/cumm RBC (4.50-6.00) m/cumm Hgb (13.5-17.5) g/dL Hct (40.0-50.0) % MCH (27.0-33.0) pg MCHC (32.0-36.0) g/dL RDW (11.8-14.1) % Plt Count (130-400) x1000/uL Absolute Lymphocytes (1.2-3.4) k/cumm BUN 1 L (7-18) mg/dL Creatinine 0.69 L (0.70-1.30) mg/dL Glucose 133 H (74-106) mg/dL Calcium 7.9 L (8.5-10.1) mg/dL Iron (65-175) ug/dL TIBC (250-450) ug/dL Transferrin % Sat (20-55) % AST 40 H (15-37) U/L ALT 102 H 81 H (16-63) U/L Alkaline Phosphatase 162 H (46-116) U/L C-Reactive Protein 4.25 H (0.0-0.3) mg/dL Total Protein 5.7 L (6.4-8.2) g/dL Albumin 1.6 L (3.4-5.0) g/dL TSH 0.23 L (0.36-3.74) uIU/mL Acetaminophen < 2 L (10-30) ug/mL 07/26/19 07/26/19 Range/Units 09:00 09:00 WBC 4.20 L D (4.4-10.8) k/cumm RBC 3.57 L (4.50-6.00) m/cumm Hgb 9.0 L (13.5-17.5) g/dL Hct 28.6 L (40.0-50.0) % MCH 25.2 L (27.0-33.0) pg MCHC 31.5 L (32.0-36.0) g/dL RDW 15.5 H (11.8-14.1) % Plt Count 539 H (130-400) x1000/uL Absolute Lymphocytes 1.01 L (1.2-3.4) k/cumm BUN (7-18) mg/dL Creatinine (0.70-1.30) mg/dL Glucose (74-106) mg/dL Calcium (8.5-10.1) mg/dL Iron 61 L (65-175) ug/dL TIBC 103 L (250-450) ug/dL Transferrin % Sat 59 H (20-55) % AST (15-37) U/L ALT (16-63) U/L Alkaline Phosphatase (46-116) U/L C-Reactive Protein (0.0-0.3) mg/dL Total Protein (6.4-8.2) g/dL Albumin (3.4-5.0) g/dL TSH (0.36-3.74) uIU/mL Acetaminophen (10-30) ug/mL Vital Signs Temperature 37.6 C H 07/26/19 12:37 Temperature Source Temporal Artery Scan 07/26/19 07:40 Pulse 117 H 07/26/19 12:19 Pulse Rhythm Regular 07/24/19 09:02 Pulse 95 H 07/26/19 11:00 Respiratory Rate 18 07/26/19 11:00 Respiratory Effort 07/26/19 12:37 Respiratory Depth Normal 07/26/19 12:37 Respiratory Pattern Normal 07/26/19 12:37 Blood Pressure 135/93 H 07/26/19 12:19 Blood Pressure Mean 101 07/26/19 12:19 Blood Pressure Position Supine 07/26/19 12:37 Pulse Oximetry 96 07/26/19 12:18 Oxygen Delivery Method Room Air 07/26/19 08:44 Oxygen Flow Rate 0 07/26/19 07:40 Pain Level 8 07/26/19 12:37 Intake & Output 07/25/19 07/26/19 07/26/19 23:59 11:59 23:59 Intake Total 3248.180 / 6231.130 1583.858 / 1583.858 Output Total 1400 / 2125 800 / 800 Balance 1848.180 / 4106.130 783.858 / 783.858 Weight 64.8 kg Intake: IV 2102.180 / 4465.130 1343.858 / 1343.858 Oral 1146 / 1766 240 / 240 Output: Urine 1100 / 1400 600 / 600 Stool 300 / 725 200 / 200 Other: Urine Color Yellow Yellow Urine Appearance Clear Clear Urine Odor None None Comment urine has been mixed with BM urine has been mixed with BM Stool Occult Blood Positive Stool Size Moderate Stool Characteristics Liquid Liquid Brown Emesis Description None Voiding Methods Urinal Urinal Laboratory Results WBC 4.20 k/cumm (4.4-10.8) L D 07/26/19 09:00 RBC 3.57 m/cumm (4.50-6.00) L 07/26/19 09:00 Hgb 9.0 g/dL (13.5-17.5) L 07/26/19 09:00 Hct 28.6 % (40.0-50.0) L 07/26/19 09:00 MCV 80.1 fL (80-95) 07/26/19 09:00 MCH 25.2 pg (27.0-33.0) L 07/26/19 09:00 MCHC 31.5 g/dL (32.0-36.0) L 07/26/19 09:00 RDW 15.5 % (11.8-14.1) H 07/26/19 09:00 Plt Count 539 x1000/uL (130-400) H 07/26/19 09:00 MPV 8.6 fL (8.0-11.0) 07/26/19 09:00 Immature Gran % See Differential 07/26/19 09:00 Neutrophils % 68.0 07/26/19 09:00 Band Neutrophils % 2.0 % 07/26/19 09:00 Lymphocytes % 19.0 07/26/19 09:00 Atypical Lymphs % 5 07/26/19 09:00 Monocytes % 5.0 07/26/19 09:00 Eosinophils % 0.0 07/26/19 09:00 Basophils % 0.0 07/26/19 09:00 Myelocytes % 1.0 % 07/26/19 09:00 Absolute Neutrophils 2.94 k/cumm (1.2-6.7) 07/26/19 09:00 Absolute Lymphocytes 1.01 k/cumm (1.2-3.4) L 07/26/19 09:00 Absolute Monocytes 0.21 k/cumm (0.11-0.7) 07/26/19 09:00 Absolute Eosinophils 0.00 k/cumm (0.0-0.7) 07/26/19 09:00 Absolute Basophils 0.00 k/cumm (0.0-0.2) 07/26/19 09:00 Differential Comment Manual differential 07/26/19 09:00 RBC Morphology See below 07/26/19 09:00 Polychromasia Present 07/26/19 09:00 Hypochromasia 1+ 07/26/19 09:00 Poikilocytosis 1+ 07/26/19 09:00 Anisocytosis 1+ 07/26/19 09:00 Microcytosis 1+ 07/26/19 09:00 Parasite Present See below 07/24/19 11:20 ESR 57 mm/hr (0-15) H 07/25/19 06:00 PT 13.3 sec (9.3-11.0) H 07/25/19 06:00 INR 1.3 (0.9-1.1) H 07/25/19 06:00 Sodium 141 mmol/L (136-145) 07/26/19 09:00 Potassium 3.7 mmol/L (3.5-5.1) 07/26/19 09:00 Chloride 106 mmol/L (98-107) 07/26/19 09:00 Carbon Dioxide 26.8 mmol/L (21.0-32.0) 07/26/19 09:00 Anion Gap 8.2 mmol/L (3-11) 07/26/19 09:00 BUN 1 mg/dL (7-18) L 07/26/19 09:00 Creatinine 0.69 mg/dL (0.70-1.30) L 07/26/19 09:00 Estimated GFR/1.73 m2 >= 60.00 (mL/min/1.73m2) 07/26/19 09:00 Glucose 133 mg/dL (74-106) H 07/26/19 09:00 Calcium 7.9 mg/dL (8.5-10.1) L 07/26/19 09:00 Magnesium 2.0 mg/dL (1.8-2.4) 07/26/19 09:00 Iron 61 ug/dL (65-175) L 07/26/19 09:00 TIBC 103 ug/dL (250-450) L 07/26/19 09:00 Transferrin % Sat 59 % (20-55) H 07/26/19 09:00 Ferritin 350 ng/mL (26-388) 07/26/19 09:00 Total Bilirubin 0.3 mg/dL (0.2-1.0) 07/26/19 09:00 Conjugated Bilirubin 0.12 mg/dL (0.00-0.20) 07/26/19 09:00 AST 31 U/L (15-37) 07/26/19 09:00 ALT 81 U/L (16-63) H 07/26/19 09:00 Alkaline Phosphatase 162 U/L (46-116) H 07/26/19 09:00 C-Reactive Protein 4.25 mg/dL (0.0-0.3) H 07/26/19 09:00 Total Protein 5.7 g/dL (6.4-8.2) L 07/26/19 09:00 Albumin 1.6 g/dL (3.4-5.0) L 07/26/19 09:00 Lipase 78 U/L (73-393) 07/24/19 08:18 Vitamin B12 > 2000 pg/mL (193-986) H 07/25/19 06:00 Folate 7.5 ng/mL (8.6-20.0) L 07/25/19 06:00 TSH 0.23 uIU/mL (0.36-3.74) L 07/26/19 09:00 Stool Description Not Applicable 07/24/19 11:20 Stool Campylobacter PCR Cancelled 07/24/19 12:15 Stool Salmonella PCR Cancelled 07/24/19 12:15 Stool Shigella PCR Cancelled 07/24/19 12:15 Salicylates < 2.8 mg/dL (2.8-20.0) L 07/24/19 08:18 Urine Opiates Screen Positive (Negative) A 07/24/19 11:04 Urine Methadone Screen Negative (Negative) 07/24/19 11:04 Acetaminophen < 2 ug/mL (10-30) L 07/26/19 01:01 Ur Barbiturates Screen Negative (Negative) 07/24/19 11:04 Ur Tricyclics Screen Negative (Negative) 07/24/19 11:04 Ur Amphetamines Screen Negative (Negative) 07/24/19 11:04 U Benzodiazepines Scrn Negative (Negative) 07/24/19 11:04 Urine Cocaine Screen Negative (Negative) 07/24/19 11:04 Ur THC Screen Negative (Negative) 07/24/19 11:04 ANCA Pattern Cancelled 07/25/19 06:00 Neutrophil-Specific Ab Cancelled 07/25/19 06:00 Neutrophil-Specific Ab Cancelled 07/25/19 06:00 HIV 1&2 Ag/Ab, 4th Gen Negative (Negative) 07/25/19 06:00 S.cerevisiae IgG Ab Cancelled 07/25/19 06:00 S.cerevisiae IgG Ab Cancelled 07/25/19 06:00 S.cerevisiae IgA Ab Cancelled 07/25/19 06:00 S.cerevisiae IgA Ab Cancelled 07/25/19 06:00 Shiga Toxin (PCR) Cancelled 07/24/19 12:15 Patient ABO/Rh A Positive 07/24/19 08:18 Antibody Screen Negative 07/24/19 08:18
--- NOTE | 2019-07-26 15:22 | PDOC.MHCN ---
Date of service: 07/26/19 Time of Service: 15:22 Mental Health Crisis Note Presenting Issue How did you arrive at the ED and why did you come: Jordon was seen in the ICU after an accidental O/D of tylenol. I am not sure how he arrived. Precipitating Factors This clinician met with Jordon today in his room at [facility]. Jordon is upset with a recent diagnosis and is trying to figure out what his next steps are. He denied SI and HI noting that he is a faithful man who believes that SI or HI is a one way ticket to hell. He wants to meet his maker he reports. Jordon is angry about what he perceives his mother to be doing to him with regard to his finances and has made attempts to become his own payee without success. He reported that he has lived in [place] his whole life and grew up in in state custody. He carries some baggage around this. Jordon is discouraged thinking there is no purpose after this hopsital stay but again is not SI or HI. Disposition BEHAVIOR: Jordon is cooperative and polite. He is not consistent with whether he feels ready for help or not. EYE CONTACT: Jordon' eye contact is avoidant to fair. MOOD: Jordon mood appears sad at times when he thinks of his recent dx and hx of trauma. He at other times is settled with who he is and confident in his goals. AFFECT: Jordon affect is flat most of the time otherwise normal. APPETITE: Jordon reported that his appetite has been poor. SLEEP(trouble falling/staying asleep: Jordon reported that his sleep has been poor. Plan At this time I have insufficient reason to hold Jordon for a MH reason. His thought process seems logical and linier. He feels he will be held in the hospital for his recent dx. I strongly encouraged counseling and offered to send him a list to his home address as I do not have one here. I encouraged that having someone to talk to could help him identify a new purpose and identity. He is open to support with this. Provisional Diagnosis depressive d/o unspecified Signature Clinician's Name/Title: Mouna Oshea MS [facility]
[2019-07-26] MEDS: diphenhydrAMINE 25 MG CAP PO (16:37)
[2019-07-26] MEDS: Normal Saline 1,000 ML 80 ML IV (17:02)
[2019-07-26] MEDS: inFLIXimab 300 MG in Normal Saline 250 ML 125 MG IVPB (18:56)
--- NOTE | 2019-07-26 20:19 | W.PM.ENDDOP ---
Date of service: 07/26/19 Time of Service: 20:20 Endoscopy Report DATE OF PROCEDURE: 07/26/19 PRE-OP DIAGNOSIS: esophageal foreign body POST-OP DIAGNOSIS: same PROCEDURE: FB retrieval ANESTHESIA: GETA ESTIMATED BLOOD LOSS: 1 PATHOLOGY: other DISPOSITION: floor PROCEDURE DESCRIPTION: dicated
[2019-07-27] VITALS (8 sets, daily range): BP systolic 124–142; BP diastolic 70–90; PULSE 50–98; RESP 17–20; TEMP 36.5–36.8; O2SAT 93–98
--- NOTE | 2019-07-27 01:56 | NUR.NOTE ---
Nursing Note: Pt woke up and IVF tubing unhooked from Lt AC. Confused and suspicious, stated that the group underwriter removed and gave bad stuff and sneak out just to disconnect his IV. Redirected but increasingly anxious and not cooperative with the group underwriter. full charge bookkeeper intervene and report given and will continue the care.
[2019-07-27] MEDS: Normal Saline 1,000 ML 80 ML IV (02:50)
[2019-07-27] MEDS: Normal Saline Flush 10 ML SYR IVP ×4 (02:51→22:28)
[2019-07-27] MEDS: metroNIDAZOLE 500 MG/100 ML BAG 100 MG IVPB ×4 (04:13→22:29)
[2019-07-27] MEDS: FAMOTIDINE 20 MG/50 ML BAG 200 MG IVPB ×2 (05:20→16:25)
[2019-07-27] MEDS: Hydrocortisone SOD SUC. 100 MG VIAL 120 MG IVP (06:04)
[2019-07-27] MEDS: HYDROmorphone 2 MG/ML VIAL 1 MG IVP ×3 (06:57→22:28)
[2019-07-27 07:42] LABS: Abs Immature Grans 0.14 k/cumm (0.0-0.09); HCT 26.8 % (40.0-50.0); HGB 8.3 g/dL (13.5-17.5); Mean Corpuscular Hemoglobin 25.3 pg (27.0-33.0); Mean Corpuscular Volume 81.7 fL (80-95); Platelet Count 523 x1000/uL (130-400); RBC 3.28 m/cumm (4.50-6.00); RBC Distribution Width 15.7 % (11.8-14.1); White Blood Cell Count 4.58 k/cumm (4.4-10.8)
[2019-07-27 07:58] LABS: Absolute Lymphocyte Count 1.37 k/cumm (1.2-3.4); Absolute Monocyte Count 0.41 k/cumm (0.11-0.7); Atypical Lymphocytes % 8
[2019-07-27 07:59] LABS: Anisocytosis 1+; Diff Comment Manual Differential; Hypochromasia 2+; Microcytosis 1+; Polychromasia Present
[2019-07-27 08:15] LABS: ALT 64 U/L (16-63); AST 30 U/L (15-37); Albumin 1.7 g/dL (3.4-5.0); Alkaline Phosphatase 156 U/L (46-116); Anion Gap 6.2 mmol/L (3-11); BUN 5 mg/dL (7-18); Bilirubin, Direct 0.08 mg/dL (0.00-0.20); Bilirubin, Total 0.2 mg/dL (0.2-1.0); C-Reactive Protein 1.88 mg/dL (0.0-0.3); CO2 27.8 mmol/L (21.0-32.0); CREATININE 0.62 mg/dL (0.70-1.30); Calcium 8.2 mg/dL (8.5-10.1); Chloride 110 mmol/L (98-107); Glucose 120 mg/dL (74-106); INR 1.1 (0.9-1.1); Potassium 3.5 mmol/L (3.5-5.1); Prothrombin Time 10.6 sec (9.3-11.0); Sodium 144 mmol/L (136-145); Total Protein 5.4 g/dL (6.4-8.2)
[2019-07-27 08:23] LABS: ESR 64 mm/hr (0-15)
--- NOTE | 2019-07-27 08:23 | W.PM.PROGNOT ---
Documented by User: EVIN Abarca 07/27/19 08:27 Date of Service Date of service: 07/27/19 Time of Service: 08:23 Assessment and Plan Assessment and plan (1) IBD (inflammatory bowel disease): Status: Acute Assessment and plan: Patient is feeling better. Denied abdominal pain. Encouraged activity OOB. Continue liquid diet. Subjective Subjective Interval history since last seen: Feeling better today. BMs have progressively become less frequent. Denies abdominal pain at this time. Exam Const General: cooperative, healthy appearing and comfortable Orientation: alert and oriented x3 Resp Effort & Inspection: normal respiratory effort, no audible wheezes and no cough Objective Objective Clinical Data: Abnormal lab results 07/26/19 07/26/19 07/26/19 Range/Units 09:00 09:00 09:00 WBC 4.20 L D (4.4-10.8) k/cumm RBC 3.57 L (4.50-6.00) m/cumm Hgb 9.0 L (13.5-17.5) g/dL Hct 28.6 L (40.0-50.0) % MCH 25.2 L (27.0-33.0) pg MCHC 31.5 L (32.0-36.0) g/dL RDW 15.5 H (11.8-14.1) % Plt Count 539 H (130-400) x1000/uL Absolute Lymphocytes 1.01 L (1.2-3.4) k/cumm Chloride (98-107) mmol/L BUN 1 L (7-18) mg/dL Creatinine 0.69 L (0.70-1.30) mg/dL Glucose 133 H (74-106) mg/dL Calcium 7.9 L (8.5-10.1) mg/dL Iron (65-175) ug/dL TIBC (250-450) ug/dL Transferrin % Sat (20-55) % ALT 81 H (16-63) U/L Alkaline Phosphatase 162 H (46-116) U/L C-Reactive Protein 4.25 H (0.0-0.3) mg/dL Total Protein 5.7 L (6.4-8.2) g/dL Albumin 1.6 L (3.4-5.0) g/dL TSH 0.23 L (0.36-3.74) uIU/mL 07/26/19 07/27/19 07/27/19 Range/Units 09:00 06:40 06:40 WBC (4.4-10.8) k/cumm RBC 3.28 L (4.50-6.00) m/cumm Hgb 8.3 L (13.5-17.5) g/dL Hct 26.8 L (40.0-50.0) % MCH 25.3 L (27.0-33.0) pg MCHC 31.0 L (32.0-36.0) g/dL RDW 15.7 H (11.8-14.1) % Plt Count 523 H (130-400) x1000/uL Absolute Lymphocytes (1.2-3.4) k/cumm Chloride 110 H (98-107) mmol/L BUN 5 L (7-18) mg/dL Creatinine 0.62 L (0.70-1.30) mg/dL Glucose 120 H (74-106) mg/dL Calcium 8.2 L (8.5-10.1) mg/dL Iron 61 L (65-175) ug/dL TIBC 103 L (250-450) ug/dL Transferrin % Sat 59 H (20-55) % ALT 64 H (16-63) U/L Alkaline Phosphatase 156 H (46-116) U/L C-Reactive Protein 1.88 H (0.0-0.3) mg/dL Total Protein 5.4 L (6.4-8.2) g/dL Albumin 1.7 L (3.4-5.0) g/dL TSH (0.36-3.74) uIU/mL Vital Signs Temperature 36.5 C 07/27/19 02:20 Temperature Source Tympanic 07/27/19 02:20 Pulse 98 H 07/27/19 02:20 Pulse Rhythm Regular 07/24/19 09:02 Pulse 95 H 07/26/19 11:00 Respiratory Rate 20 07/27/19 02:20 Respiratory Effort 07/26/19 19:00 Respiratory Depth Normal 07/26/19 19:00 Respiratory Pattern Normal 07/26/19 19:00 Blood Pressure 132/87 07/27/19 02:20 Blood Pressure Mean 93 07/26/19 17:16 Blood Pressure Position Supine 07/26/19 17:16 Pulse Oximetry 98 07/27/19 02:20 Oxygen Delivery Method Room Air 07/27/19 02:20 Oxygen Flow Rate 0 07/27/19 02:20 Pain Level 8 07/27/19 06:57 Intake & Output 07/26/19 07/27/19 07/27/19 18:59 06:59 18:59 Intake Total 2766.558 / 4000.558 1234 / 4000.558 Output Total 850 / 850 Balance 1916.558 / 3150.558 1234 / 3150.558 Intake: IV 1786.558 / 3020.558 1234 / 3020.558 Oral 980 / 980 Output: Urine 850 / 850 Other: Urine Color Yellow Urine Appearance Clear Clear Urine Odor None Comment mixed with loose stool Stool Occult Blood Positive Stool Characteristics Liquid Brown Emesis Description None Voiding Methods Urinal Toilet Laboratory Results WBC 4.58 k/cumm (4.4-10.8) 07/27/19 06:40 RBC 3.28 m/cumm (4.50-6.00) L 07/27/19 06:40 Hgb 8.3 g/dL (13.5-17.5) L 07/27/19 06:40 Hct 26.8 % (40.0-50.0) L 07/27/19 06:40 MCV 81.7 fL (80-95) 07/27/19 06:40 MCH 25.3 pg (27.0-33.0) L 07/27/19 06:40 MCHC 31.0 g/dL (32.0-36.0) L 07/27/19 06:40 RDW 15.7 % (11.8-14.1) H 07/27/19 06:40 Plt Count 523 x1000/uL (130-400) H 07/27/19 06:40 MPV 9.0 fL (8.0-11.0) 07/27/19 06:40 Immature Gran % See Differential 07/27/19 06:40 Neutrophils % 58.0 07/27/19 06:40 Band Neutrophils % 1.0 % 07/27/19 06:40 Lymphocytes % 22.0 07/27/19 06:40 Atypical Lymphs % 8 07/27/19 06:40 Monocytes % 9.0 07/27/19 06:40 Eosinophils % 0.0 07/27/19 06:40 Basophils % 0.0 07/27/19 06:40 Metamyelocytes % 1.0 % 07/27/19 06:40 Myelocytes % 1.0 % 07/27/19 06:40 Absolute Neutrophils 2.70 k/cumm (1.2-6.7) 07/27/19 06:40 Absolute Lymphocytes 1.37 k/cumm (1.2-3.4) 07/27/19 06:40 Absolute Monocytes 0.41 k/cumm (0.11-0.7) 07/27/19 06:40 Absolute Eosinophils 0.00 k/cumm (0.0-0.7) 07/27/19 06:40 Absolute Basophils 0.00 k/cumm (0.0-0.2) 07/27/19 06:40 Differential Comment Manual differential 07/27/19 06:40 RBC Morphology See below 07/27/19 06:40 Polychromasia Present 07/27/19 06:40 Hypochromasia 2+ 07/27/19 06:40 Poikilocytosis 1+ 07/26/19 09:00 Anisocytosis 1+ 07/27/19 06:40 Microcytosis 1+ 07/27/19 06:40 Parasite Present See below 07/24/19 11:20 ESR 57 mm/hr (0-15) H 07/25/19 06:00 PT 10.6 sec (9.3-11.0) 07/27/19 06:40 INR 1.1 (0.9-1.1) 07/27/19 06:40 Sodium 144 mmol/L (136-145) 07/27/19 06:40 Potassium 3.5 mmol/L (3.5-5.1) 07/27/19 06:40 Chloride 110 mmol/L (98-107) H 07/27/19 06:40 Carbon Dioxide 27.8 mmol/L (21.0-32.0) 07/27/19 06:40 Anion Gap 6.2 mmol/L (3-11) 07/27/19 06:40 BUN 5 mg/dL (7-18) L 07/27/19 06:40 Creatinine 0.62 mg/dL (0.70-1.30) L 07/27/19 06:40 Estimated GFR/1.73 m2 >= 60.00 (mL/min/1.73m2) 07/27/19 06:40 Glucose 120 mg/dL (74-106) H 07/27/19 06:40 Calcium 8.2 mg/dL (8.5-10.1) L 07/27/19 06:40 Magnesium 2.0 mg/dL (1.8-2.4) 07/27/19 06:40 Iron 61 ug/dL (65-175) L 07/26/19 09:00 TIBC 103 ug/dL (250-450) L 07/26/19 09:00 Transferrin % Sat 59 % (20-55) H 07/26/19 09:00 Ferritin 350 ng/mL (26-388) 07/26/19 09:00 Total Bilirubin 0.2 mg/dL (0.2-1.0) 07/27/19 06:40 Conjugated Bilirubin 0.08 mg/dL (0.00-0.20) 07/27/19 06:40 AST 30 U/L (15-37) 07/27/19 06:40 ALT 64 U/L (16-63) H 07/27/19 06:40 Alkaline Phosphatase 156 U/L (46-116) H 07/27/19 06:40 C-Reactive Protein 1.88 mg/dL (0.0-0.3) H 07/27/19 06:40 Total Protein 5.4 g/dL (6.4-8.2) L 07/27/19 06:40 Albumin 1.7 g/dL (3.4-5.0) L 07/27/19 06:40 Lipase 78 U/L (73-393) 07/24/19 08:18 Vitamin B12 > 2000 pg/mL (193-986) H 07/25/19 06:00 Folate 7.5 ng/mL (8.6-20.0) L 07/25/19 06:00 TSH 0.23 uIU/mL (0.36-3.74) L 07/26/19 09:00 Stool Description Not Applicable 07/24/19 11:20 Stool Campylobacter PCR Cancelled 07/24/19 12:15 Stool Salmonella PCR Cancelled 07/24/19 12:15 Stool Shigella PCR Cancelled 07/24/19 12:15 Salicylates < 2.8 mg/dL (2.8-20.0) L 07/24/19 08:18 Urine Opiates Screen Positive (Negative) A 07/24/19 11:04 Urine Methadone Screen Negative (Negative) 07/24/19 11:04 Acetaminophen < 2 ug/mL (10-30) L 07/26/19 01:01 Ur Barbiturates Screen Negative (Negative) 07/24/19 11:04 Ur Tricyclics Screen Negative (Negative) 07/24/19 11:04 Ur Amphetamines Screen Negative (Negative) 07/24/19 11:04 U Benzodiazepines Scrn Negative (Negative) 07/24/19 11:04 Urine Cocaine Screen Negative (Negative) 07/24/19 11:04 Ur THC Screen Negative (Negative) 07/24/19 11:04 ANCA Pattern Cancelled 07/25/19 06:00 Neutrophil-Specific Ab Cancelled 07/25/19 06:00 Neutrophil-Specific Ab Cancelled 07/25/19 06:00 HIV 1&2 Ag/Ab, 4th Gen Negative (Negative) 07/25/19 06:00 S.cerevisiae IgG Ab Cancelled 07/25/19 06:00 S.cerevisiae IgG Ab Cancelled 07/25/19 06:00 S.cerevisiae IgA Ab Cancelled 07/25/19 06:00 S.cerevisiae IgA Ab Cancelled 07/25/19 06:00 Shiga Toxin (PCR) Cancelled 07/24/19 12:15 Patient ABO/Rh A Positive 07/24/19 08:18 Antibody Screen Negative 07/24/19 08:18 Documented by User: Sofia Esquivel DO 07/27/19 09:58 Assessment and Plan Assessment and plan (1) IBD (inflammatory bowel disease): Status: Acute Assessment and plan: pt is in a much better place from a mental health standpoint. I still think he should be on a mood stabilizer, but this is not my speciality I d/w that this is an [employer] d/o that will require lifelong medication/active participation in his health by diet and lifestyle/partnership w/ a medical proffessional to maintain health and avoid hospilizations. We d/w the role of immune suppression adn risks and benfits of this. We d/w diet jessie manipulation adn why this is necessary at this time. He is agreeable and wants to continue and be an active partner in his hea; care. We will advance diet to soft protein based foods but need to avoid carbs and starches currently. He may lave floor w/ escort to go to the gift shop. He received Remicade yest- stil having profuse watery diarrhea- but none in about 6 hrs and was non-bloody. his pain is less today but still present. he is tolerating full liquids- no n/v. see orders Dr Juarez to resume care for weekend. would like to see him be able to tolerate soft low residue diet w/ less diarrhea and no bleeding prior to D/c needs to see GI at [facility] – [place], [place]
[2019-07-27] MEDS: Fluticasone NASAL SPRAY 16 GM BTL NS (08:59)
[2019-07-27] MEDS: Folic Acid 1 MG TAB PO (09:00)
[2019-07-27] MEDS: Lactobacillus Acidophilus CAP 1 CAP PO ×3 (09:00→20:37)
--- NOTE | 2019-07-27 10:20 | CMPROGNOTE_ITS ---
- If Service Date Differs Date of service: 07/27/19 Time of Service: 10:20 Care Management Progress Note S/O: Jordon is lying in bed when CM comes to meet with him. He is pleasant and easily engages in conversation. He shares he has struggled with depression and anxiety for most of his life. He is agreeable to seeing a therapist but is unwilling to see the behavioral health specialist at [facility]. CM continues to follow. A: Jordon is a 33 year old male admitted to [facility] on 07/24/2019 for a Tylenol overdose and acute colitis. P: Jordon will be discharged home when medically cleared by provider. Anticipate an increase in community based supports. CM continues to follow.
[2019-07-27] MEDS: Hydrocortisone SOD SUC. 100 MG VIAL IVP ×2 (10:46→18:11)
[2019-07-27] MEDS: LORazepam 2 MG/ML VIAL 0.5 MG IVP ×2 (10:58→22:27)
[2019-07-27] MEDS: Potassium Chloride 10 MEQ CAPCR 40 MEQ PO (11:42)
[2019-07-27] MEDS: IRON SUCROSE COMPLEX 200 MG in Normal Saline 100 ML 400 MG IVPB (12:13)
[2019-07-27] MEDS: traMADol 50 MG TAB PO ×2 (12:25→14:55)
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
--- NOTE | 2019-07-27 16:44 | W.PM.PROGNOT ---
Date of Service Date of service: 07/27/19 Time of Service: 16:44 Assessment and Plan Assessment and plan (1) Acute hemorrhagic colitis: Status: Acute Assessment and plan: S/p flex sig 07/26/19 - c/w IBD, biopsies taken, path pending. S/p infliximab on 07/26/19. Continue high dose IV hydrocortisone as well as metronidazole. Improving. Does have a family history of IBD (per patient, both Crohn's and UC). Avoid chemical DVT ppx at this time (initiate if/when bleeding stops - IBD is a hypercoagulable state). (2) Tylenol toxicity: Status: Resolved Assessment and plan: s/p NAC therapy. LFTs better. S/p Vitamin K with improvement in INR as well. (3) Transaminitis: Status: Acute Assessment and plan: Improved. Does have a history of hepatic steatosis. Continue to trend LFTs. (4) Coagulopathy: Status: Resolved Assessment and plan: Could be part of tylenol hepatotoxicity. s/p Vitamin K, both PO and IV. Recheck INR given ongoing bleeding. (5) Hypokalemia: Status: Resolved Assessment and plan: Repeat labs in am (6) Schizoid personality disorder: Status: Chronic Assessment and plan: Mental health evaluated patient - felt to have capacity to make decisions; allowed to leave AMA if desires. (7) Attention deficit hyperactivity disorder (ADHD), predominantly inattentive type: Status: Chronic Assessment and plan: The patient had not been taking his dextroamphethamine for the last 2-3 weeks. Will abstain for now. (8) DVT prophylaxis: Status: Acute Assessment and plan: TEDs + SCDS - avoid chemical DVT ppx in setting of BRBPR (9) Discharge planning issues: Status: Acute Assessment and plan: Full code Subjective Subjective Interval history since last seen: Mr Santana states he is feeling better today, but his pain was not controlled with oral ultram. We had to go back to IV dilaudid. He denies dizziness, chest pain, shortness of breath, nausea. Stools are starting to become more formed and less bloody. Exam Narrative Exam Narrative: General: Very anxious male, more composed now than yesterday, A&Ox3, looks better; in bed HEENT: EOMI, chopped lips Cardiovascular: RRR, no m/r/g Lungs: CTAB Gastrointestinal: abdomen soft, less tender Extremities: no e/c/c BLE's Objective Objective Clinical Data: Abnormal lab results 07/27/19 07/27/19 Range/Units 06:40 06:40 RBC 3.28 L (4.50-6.00) m/cumm Hgb 8.3 L (13.5-17.5) g/dL Hct 26.8 L (40.0-50.0) % MCH 25.3 L (27.0-33.0) pg MCHC 31.0 L (32.0-36.0) g/dL RDW 15.7 H (11.8-14.1) % Plt Count 523 H (130-400) x1000/uL ESR 64 H (0-15) mm/hr Chloride 110 H (98-107) mmol/L BUN 5 L (7-18) mg/dL Creatinine 0.62 L (0.70-1.30) mg/dL Glucose 120 H (74-106) mg/dL Calcium 8.2 L (8.5-10.1) mg/dL ALT 64 H (16-63) U/L Alkaline Phosphatase 156 H (46-116) U/L C-Reactive Protein 1.88 H (0.0-0.3) mg/dL Total Protein 5.4 L (6.4-8.2) g/dL Albumin 1.7 L (3.4-5.0) g/dL Vital Signs Temperature 36.5 C 07/27/19 15:45 Temperature Source Temporal Artery Scan 07/27/19 15:45 Pulse 50 L 07/27/19 15:45 Pulse Rhythm Regular 07/27/19 11:16 Pulse 95 H 07/26/19 11:00 Respiratory Rate 18 07/27/19 15:45 Respiratory Effort Non-Labored 07/27/19 11:16 Respiratory Depth Normal 07/27/19 11:16 Respiratory Pattern Normal 07/27/19 11:16 Blood Pressure 138/80 07/27/19 15:45 Blood Pressure Mean 93 07/26/19 17:16 Blood Pressure Position Supine 07/26/19 17:16 Pulse Oximetry 97 07/27/19 15:45 Oxygen Delivery Method Room Air 07/27/19 15:45 Oxygen Flow Rate 0 07/27/19 15:45 Pain Level 8 07/27/19 16:24 Intake & Output 07/26/19 07/27/19 07/27/19 23:59 11:59 23:59 Intake Total 1898.225 / 3482.083 2324.64 / 2434.64 110 / 2433.64 Output Total 300 / 1350 Balance 1598.225 / 2132.083 2324.64 / 2434.64 110 / 2433.64 Intake: IV 1158.225 / 2502.083 1844.64 / 1953.64 110 / 1953.64 Oral 740 / 980 480 / 480 Output: Urine 300 / 1150 Other: Urine Color Yellow Yellow Urine Appearance Clear Clear Clear Voiding Methods Toilet Toilet Toilet Laboratory Results WBC 4.58 k/cumm (4.4-10.8) 07/27/19 06:40 RBC 3.28 m/cumm (4.50-6.00) L 07/27/19 06:40 Hgb 8.3 g/dL (13.5-17.5) L 07/27/19 06:40 Hct 26.8 % (40.0-50.0) L 07/27/19 06:40 MCV 81.7 fL (80-95) 07/27/19 06:40 MCH 25.3 pg (27.0-33.0) L 07/27/19 06:40 MCHC 31.0 g/dL (32.0-36.0) L 07/27/19 06:40 RDW 15.7 % (11.8-14.1) H 07/27/19 06:40 Plt Count 523 x1000/uL (130-400) H 07/27/19 06:40 MPV 9.0 fL (8.0-11.0) 07/27/19 06:40 Immature Gran % See Differential 07/27/19 06:40 Neutrophils % 58.0 07/27/19 06:40 Band Neutrophils % 1.0 % 07/27/19 06:40 Lymphocytes % 22.0 07/27/19 06:40 Atypical Lymphs % 8 07/27/19 06:40 Monocytes % 9.0 07/27/19 06:40 Eosinophils % 0.0 07/27/19 06:40 Basophils % 0.0 07/27/19 06:40 Metamyelocytes % 1.0 % 07/27/19 06:40 Myelocytes % 1.0 % 07/27/19 06:40 Absolute Neutrophils 2.70 k/cumm (1.2-6.7) 07/27/19 06:40 Absolute Lymphocytes 1.37 k/cumm (1.2-3.4) 07/27/19 06:40 Absolute Monocytes 0.41 k/cumm (0.11-0.7) 07/27/19 06:40 Absolute Eosinophils 0.00 k/cumm (0.0-0.7) 07/27/19 06:40 Absolute Basophils 0.00 k/cumm (0.0-0.2) 07/27/19 06:40 Differential Comment Manual differential 07/27/19 06:40 RBC Morphology See below 07/27/19 06:40 Polychromasia Present 07/27/19 06:40 Hypochromasia 2+ 07/27/19 06:40 Poikilocytosis 1+ 07/26/19 09:00 Anisocytosis 1+ 07/27/19 06:40 Microcytosis 1+ 07/27/19 06:40 Parasite Present See below 07/24/19 11:20 ESR 64 mm/hr (0-15) H 07/27/19 06:40 PT 10.6 sec (9.3-11.0) 07/27/19 06:40 INR 1.1 (0.9-1.1) 07/27/19 06:40 Sodium 144 mmol/L (136-145) 07/27/19 06:40 Potassium 3.5 mmol/L (3.5-5.1) 07/27/19 06:40 Chloride 110 mmol/L (98-107) H 07/27/19 06:40 Carbon Dioxide 27.8 mmol/L (21.0-32.0) 07/27/19 06:40 Anion Gap 6.2 mmol/L (3-11) 07/27/19 06:40 BUN 5 mg/dL (7-18) L 07/27/19 06:40 Creatinine 0.62 mg/dL (0.70-1.30) L 07/27/19 06:40 Estimated GFR/1.73 m2 >= 60.00 (mL/min/1.73m2) 07/27/19 06:40 Glucose 120 mg/dL (74-106) H 07/27/19 06:40 Calcium 8.2 mg/dL (8.5-10.1) L 07/27/19 06:40 Magnesium 2.0 mg/dL (1.8-2.4) 07/27/19 06:40 Iron 61 ug/dL (65-175) L 07/26/19 09:00 TIBC 103 ug/dL (250-450) L 07/26/19 09:00 Transferrin % Sat 59 % (20-55) H 07/26/19 09:00 Ferritin 350 ng/mL (26-388) 07/26/19 09:00 Total Bilirubin 0.2 mg/dL (0.2-1.0) 07/27/19 06:40 Conjugated Bilirubin 0.08 mg/dL (0.00-0.20) 07/27/19 06:40 AST 30 U/L (15-37) 07/27/19 06:40 ALT 64 U/L (16-63) H 07/27/19 06:40 Alkaline Phosphatase 156 U/L (46-116) H 07/27/19 06:40 C-Reactive Protein 1.88 mg/dL (0.0-0.3) H 07/27/19 06:40 Total Protein 5.4 g/dL (6.4-8.2) L 07/27/19 06:40 Albumin 1.7 g/dL (3.4-5.0) L 07/27/19 06:40 Lipase 78 U/L (73-393) 07/24/19 08:18 Vitamin B12 > 2000 pg/mL (193-986) H 07/25/19 06:00 Folate 7.5 ng/mL (8.6-20.0) L 07/25/19 06:00 TSH 0.23 uIU/mL (0.36-3.74) L 07/26/19 09:00 Stool Description Not Applicable 07/24/19 11:20 Stool Campylobacter PCR Cancelled 07/24/19 12:15 Stool Salmonella PCR Cancelled 07/24/19 12:15 Stool Shigella PCR Cancelled 07/24/19 12:15 Salicylates < 2.8 mg/dL (2.8-20.0) L 07/24/19 08:18 Urine Opiates Screen Positive (Negative) A 07/24/19 11:04 Urine Methadone Screen Negative (Negative) 07/24/19 11:04 Acetaminophen < 2 ug/mL (10-30) L 07/26/19 01:01 Ur Barbiturates Screen Negative (Negative) 07/24/19 11:04 Ur Tricyclics Screen Negative (Negative) 07/24/19 11:04 Ur Amphetamines Screen Negative (Negative) 07/24/19 11:04 U Benzodiazepines Scrn Negative (Negative) 07/24/19 11:04 Urine Cocaine Screen Negative (Negative) 07/24/19 11:04 Ur THC Screen Negative (Negative) 07/24/19 11:04 ANCA Pattern Cancelled 07/25/19 06:00 Neutrophil-Specific Ab Cancelled 07/25/19 06:00 Neutrophil-Specific Ab Cancelled 07/25/19 06:00 HIV 1&2 Ag/Ab, 4th Gen Negative (Negative) 07/25/19 06:00 S.cerevisiae IgG Ab Cancelled 07/25/19 06:00 S.cerevisiae IgG Ab Cancelled 07/25/19 06:00 S.cerevisiae IgA Ab Cancelled 07/25/19 06:00 S.cerevisiae IgA Ab Cancelled 07/25/19 06:00 Shiga Toxin (PCR) Cancelled 07/24/19 12:15 Patient ABO/Rh A Positive 07/24/19 08:18 Antibody Screen Negative 07/24/19 08:18
[2019-07-27 17:04] LABS: ANCA Interpretation Negative
[2019-07-28] MEDS: Normal Saline Flush 10 ML SYR IVP ×6 (01:18→21:47)
[2019-07-28] MEDS: Hydrocortisone SOD SUC. 100 MG VIAL IVP ×2 (01:18→09:50)
[2019-07-28] MEDS: FAMOTIDINE 20 MG/50 ML BAG 200 MG IVPB (03:51)
[2019-07-28 04:00] VITALS: BP 134/77; PULSE 60; RESP 16; TEMP 36.6; O2SAT 97
[2019-07-28] MEDS: metroNIDAZOLE 500 MG/100 ML BAG 100 MG IVPB ×4 (04:35→21:47)
[2019-07-28] MEDS: HYDROmorphone 2 MG/ML VIAL 1 MG IVP ×2 (04:36→09:49)
[2019-07-28] MEDS: LORazepam 2 MG/ML VIAL 0.5 MG IVP (05:50)
[2019-07-28 06:57] LABS: Abs Immature Grans 0.77 k/cumm (0.0-0.09); HCT 27.8 % (40.0-50.0); HGB 8.6 g/dL (13.5-17.5); Mean Corp. HGB Concentration 30.9 g/dL (32.0-36.0); Mean Corpuscular Hemoglobin 25.1 pg (27.0-33.0); Mean Corpuscular Volume 81.3 fL (80-95); Mean Platelet Volume 8.8 fL (8.0-11.0); Platelet Count 499 x1000/uL (130-400); RBC 3.42 m/cumm (4.50-6.00); RBC Distribution Width 15.9 % (11.8-14.1); White Blood Cell Count 7.88 k/cumm (4.4-10.8)
[2019-07-28 07:15] LABS: Anion Gap 8.2 mmol/L (3-11); BUN 6 mg/dL (7-18); C-Reactive Protein 0.99 mg/dL (0.0-0.3); CO2 29.8 mmol/L (21.0-32.0); CREATININE 0.56 mg/dL (0.70-1.30); Calcium 8.1 mg/dL (8.5-10.1); Chloride 104 mmol/L (98-107); Glucose 124 mg/dL (74-106); Magnesium 1.9 mg/dL (1.8-2.4); Potassium 3.2 mmol/L (3.5-5.1); Sodium 142 mmol/L (136-145)
[2019-07-28 07:22] LABS: INR 1.1 (0.9-1.1)
[2019-07-28 07:46] LABS: Absolute Neutrophil Count 5.59 k/cumm (1.2-6.7)
[2019-07-28 07:47] LABS: Absolute Basophil Count 0.08 k/cumm (0.0-0.2); Absolute Lymphocyte Count 1.18 k/cumm (1.2-3.4); Absolute Monocyte Count 0.71 k/cumm (0.11-0.7); Atypical Lymphocytes % 2; Diff Comment Manual Differential
[2019-07-28 07:48] LABS: Total Protein 5.7 g/dL (6.4-8.2)
[2019-07-28 07:49] LABS: ALT 57 U/L (16-63); AST 21 U/L (15-37); Albumin 1.2 g/dL (3.4-5.0); Alkaline Phosphatase 145 U/L (46-116); Bilirubin, Direct 0.09 mg/dL (0.00-0.20); Bilirubin, Total 0.3 mg/dL (0.2-1.0); Hypochromasia 2+; Polychromasia Present
[2019-07-28 07:50] VITALS: BP 157/92; PULSE 52; RESP 17; TEMP 36.6; O2SAT 96
[2019-07-28 07:50] LABS: Poikilocytes 2+
--- NOTE | 2019-07-28 08:27 | W.PM.PROGNOT ---
Date of Service Date of service: 07/28/19 Time of Service: 08:27 Assessment and Plan Assessment and plan (1) IBD (inflammatory bowel disease): Status: Acute Assessment and plan: He shows slow improvement Can consider transitioning to PO meds over the next few days Will follow. Subjective Subjective Interval history since last seen: Patient reports he is having more formed stools - 2 or 3 yesterday without blood present. Still has generalized abdominal pain requiring medication Tolerating PO without N/V or worsening pain Exam Narrative Exam Narrative: Alert, no acute distress Abdomen soft with mild generalized tenderness. No peritonitis. Objective Objective Clinical Data: Abnormal lab results 07/28/19 07/28/19 07/28/19 Range/Units 06:20 06:20 06:20 RBC 3.42 L (4.50-6.00) m/cumm Hgb 8.6 L (13.5-17.5) g/dL Hct 27.8 L (40.0-50.0) % MCH 25.1 L (27.0-33.0) pg MCHC 30.9 L (32.0-36.0) g/dL RDW 15.9 H (11.8-14.1) % Plt Count 499 H (130-400) x1000/uL Absolute Lymphocytes 1.18 L (1.2-3.4) k/cumm Absolute Monocytes 0.71 H (0.11-0.7) k/cumm Potassium 3.2 L (3.5-5.1) mmol/L BUN 6 L (7-18) mg/dL Creatinine 0.56 L (0.70-1.30) mg/dL Glucose 124 H (74-106) mg/dL Calcium 8.1 L (8.5-10.1) mg/dL Alkaline Phosphatase 145 H (46-116) U/L C-Reactive Protein 0.99 H (0.0-0.3) mg/dL Total Protein 5.7 L (6.4-8.2) g/dL Albumin 1.2 L (3.4-5.0) g/dL Vital Signs Temperature 97.9 F 07/28/19 04:00 Temperature Source Temporal Artery Scan 07/28/19 04:00 Pulse 60 07/28/19 04:00 Pulse Rhythm Regular 07/28/19 01:30 Pulse 95 H 07/26/19 11:00 Respiratory Rate 16 07/28/19 04:00 Respiratory Effort Non-Labored 07/28/19 01:30 Respiratory Depth Normal 07/28/19 01:30 Respiratory Pattern Normal 07/28/19 01:30 Blood Pressure 134/77 07/28/19 04:00 Blood Pressure Mean 93 07/26/19 17:16 Blood Pressure Position Supine 07/26/19 17:16 Pulse Oximetry 97 07/28/19 04:00 Oxygen Delivery Method Room Air 07/28/19 04:00 Oxygen Flow Rate 0 07/28/19 04:00 Pain Level 7 07/28/19 04:36 Intake & Output 07/27/19 07/27/19 07/28/19 11:59 23:59 11:59 Intake Total 2804.64 / 3954.64 1150 / 3954.64 70 / 70 Balance 2804.64 / 3954.64 1150 / 3954.64 70 / 70 Intake: IV 1844.64 / 2264.64 420 / 2264.64 70 / 70 Oral 960 / 1690 730 / 1690 Other: Urine Color Yellow Yellow Urine Appearance Clear Clear Clear Comment per patient rate. Stool Size Large Stool Characteristics Soft Formed Brown Voiding Methods Toilet Toilet Laboratory Results WBC 7.88 k/cumm (4.4-10.8) D 07/28/19 06:20 RBC 3.42 m/cumm (4.50-6.00) L 07/28/19 06:20 Hgb 8.6 g/dL (13.5-17.5) L 07/28/19 06:20 Hct 27.8 % (40.0-50.0) L 07/28/19 06:20 MCV 81.3 fL (80-95) 07/28/19 06:20 MCH 25.1 pg (27.0-33.0) L 07/28/19 06:20 MCHC 30.9 g/dL (32.0-36.0) L 07/28/19 06:20 RDW 15.9 % (11.8-14.1) H 07/28/19 06:20 Plt Count 499 x1000/uL (130-400) H 07/28/19 06:20 MPV 8.8 fL (8.0-11.0) 07/28/19 06:20 Immature Gran % See Differential 07/28/19 06:20 Neutrophils % 68.0 07/28/19 06:20 Band Neutrophils % 3.0 % 07/28/19 06:20 Lymphocytes % 13.0 07/28/19 06:20 Atypical Lymphs % 2 07/28/19 06:20 Monocytes % 9.0 07/28/19 06:20 Eosinophils % 0.0 07/28/19 06:20 Basophils % 1.0 07/28/19 06:20 Metamyelocytes % 2.0 % 07/28/19 06:20 Myelocytes % 2.0 % 07/28/19 06:20 Absolute Neutrophils 5.59 k/cumm (1.2-6.7) 07/28/19 06:20 Absolute Lymphocytes 1.18 k/cumm (1.2-3.4) L 07/28/19 06:20 Absolute Monocytes 0.71 k/cumm (0.11-0.7) H 07/28/19 06:20 Absolute Eosinophils 0.00 k/cumm (0.0-0.7) 07/28/19 06:20 Absolute Basophils 0.08 k/cumm (0.0-0.2) 07/28/19 06:20 Differential Comment Manual differential 07/28/19 06:20 RBC Morphology See below 07/28/19 06:20 Polychromasia Present 07/28/19 06:20 Hypochromasia 2+ 07/28/19 06:20 Poikilocytosis 2+ 07/28/19 06:20 Anisocytosis 1+ 07/27/19 06:40 Microcytosis 1+ 07/27/19 06:40 Parasite Present See below 07/24/19 11:20 ESR 64 mm/hr (0-15) H 07/27/19 06:40 PT 11.0 sec (9.3-11.0) 07/28/19 06:20 INR 1.1 (0.9-1.1) 07/28/19 06:20 Sodium 142 mmol/L (136-145) 07/28/19 06:20 Potassium 3.2 mmol/L (3.5-5.1) L 07/28/19 06:20 Chloride 104 mmol/L (98-107) 07/28/19 06:20 Carbon Dioxide 29.8 mmol/L (21.0-32.0) 07/28/19 06:20 Anion Gap 8.2 mmol/L (3-11) 07/28/19 06:20 BUN 6 mg/dL (7-18) L 07/28/19 06:20 Creatinine 0.56 mg/dL (0.70-1.30) L 07/28/19 06:20 Estimated GFR/1.73 m2 >= 60.00 (mL/min/1.73m2) 07/28/19 06:20 Glucose 124 mg/dL (74-106) H 07/28/19 06:20 Calcium 8.1 mg/dL (8.5-10.1) L 07/28/19 06:20 Magnesium 1.9 mg/dL (1.8-2.4) 07/28/19 06:20 Iron 61 ug/dL (65-175) L 07/26/19 09:00 TIBC 103 ug/dL (250-450) L 07/26/19 09:00 Transferrin % Sat 59 % (20-55) H 07/26/19 09:00 Ferritin 350 ng/mL (26-388) 07/26/19 09:00 Total Bilirubin 0.3 mg/dL (0.2-1.0) 07/28/19 06:20 Conjugated Bilirubin 0.09 mg/dL (0.00-0.20) 07/28/19 06:20 AST 21 U/L (15-37) 07/28/19 06:20 ALT 57 U/L (16-63) 07/28/19 06:20 Alkaline Phosphatase 145 U/L (46-116) H 07/28/19 06:20 C-Reactive Protein 0.99 mg/dL (0.0-0.3) H 07/28/19 06:20 Total Protein 5.7 g/dL (6.4-8.2) L 07/28/19 06:20 Albumin 1.2 g/dL (3.4-5.0) L 07/28/19 06:20 Lipase 78 U/L (73-393) 07/24/19 08:18 Vitamin B12 > 2000 pg/mL (193-986) H 07/25/19 06:00 Folate 7.5 ng/mL (8.6-20.0) L 07/25/19 06:00 TSH 0.23 uIU/mL (0.36-3.74) L 07/26/19 09:00 Stool Description Not Applicable 07/24/19 11:20 Stool Campylobacter PCR Cancelled 07/24/19 12:15 Stool Salmonella PCR Cancelled 07/24/19 12:15 Stool Shigella PCR Cancelled 07/24/19 12:15 Salicylates < 2.8 mg/dL (2.8-20.0) L 07/24/19 08:18 Urine Opiates Screen Positive (Negative) A 07/24/19 11:04 Urine Methadone Screen Negative (Negative) 07/24/19 11:04 Acetaminophen < 2 ug/mL (10-30) L 07/26/19 01:01 Ur Barbiturates Screen Negative (Negative) 07/24/19 11:04 Ur Tricyclics Screen Negative (Negative) 07/24/19 11:04 Ur Amphetamines Screen Negative (Negative) 07/24/19 11:04 U Benzodiazepines Scrn Negative (Negative) 07/24/19 11:04 Urine Cocaine Screen Negative (Negative) 07/24/19 11:04 Ur THC Screen Negative (Negative) 07/24/19 11:04 ANCA Pattern Cancelled 07/25/19 06:00 ANCA Pattern Not Applicable 07/25/19 06:00 ANCA CMMT Negative 07/25/19 06:00 Neutrophil-Specific Ab Cancelled 07/25/19 06:00 Neutrophil-Specific Ab Cancelled 07/25/19 06:00 HIV 1&2 Ag/Ab, 4th Gen Negative (Negative) 07/25/19 06:00 S.cerevisiae IgG Ab Cancelled 07/25/19 06:00 S.cerevisiae IgG Ab Cancelled 07/25/19 06:00 S.cerevisiae IgA Ab Cancelled 07/25/19 06:00 S.cerevisiae IgA Ab Cancelled 07/25/19 06:00 Shiga Toxin (PCR) Cancelled 07/24/19 12:15 Patient ABO/Rh A Positive 07/24/19 08:18 Antibody Screen Negative 07/24/19 08:18
[2019-07-28] MEDS: Folic Acid 1 MG TAB PO (08:42)
[2019-07-28] MEDS: Fluticasone NASAL SPRAY 16 GM BTL NS (08:42)
[2019-07-28] MEDS: Lactobacillus Acidophilus CAP 1 CAP PO ×3 (08:42→20:53)
[2019-07-28] MEDS: LORazepam 1 MG TAB PO ×2 (10:38→20:53)
[2019-07-28 11:25] VITALS: BP 117/66; PULSE 65; RESP 16; TEMP 37.2; O2SAT 96
--- NOTE | 2019-07-28 15:50 | W.PM.PROGNOT ---
Date of Service Date of service: 07/28/19 Time of Service: 15:51 Assessment and Plan Assessment and plan (1) IBD (inflammatory bowel disease): Status: Acute Assessment and plan: Awaiting results of his biopsy from his flex sig. However per the surgeon's report he had findings consistent with inflammatory bowel disease. Serology was ordered and then canceled for the antibody markers for IBD. Overall he is showing improvement and that his stools are less frequent and more formed and no longer bloody. He is IV corticosteroids were discontinued today by the surgeon but he has not yet been started on prednisone. I will put him on a course of prednisone along with his infliximab. (2) Acute hemorrhagic colitis: Status: Acute Assessment and plan: As above. (3) Transaminitis: Status: Acute Assessment and plan: Resolving. His AST and ALT of now normalized and his alkaline phosphatase is improved to 145. (4) Coagulopathy: Status: Resolved Assessment and plan: Resolved. His latest INR is 1.1. (5) Tylenol toxicity: Status: Resolved Assessment and plan: Resolved. This is an unintentional overdose of Tylenol in his attempt to control his abdominal pain. Qualifiers: Encounter type: subsequent encounter Injury intent: accidental or unintentional Qualified Code(s): T39.1X1D - Poisoning by 4-Aminophenol derivatives, accidental (unintentional), subsequent encounter (6) Discharge planning issues: Status: Acute Assessment and plan: I explained to the patient he should talk with care management and they can coordinate with [facility] human services regarding obtaining any additional services needs to help him manage his medications and to obtain follow-up regarding his colitis. Subjective Subjective Interval history since last seen: Patient is reportedly having more formed stools approximately 2 to 3/day without blood. He still has some generalized abdominal pain. His diet was advanced this morning by Dr. Peters and he seems to be tolerating both his breakfast and is large. I am going to discontinue his IV narcotics and switch him over to oral analgesics. He was off the tramadol yesterday and refused it. I am going to encourage him to try the tramadol again if that does not control his pain then he can have some oral Dilaudid. However now that he is on treatment for inflammatory bowel disease including infliximab and corticosteroids he should require less narcotic analgesics for his colitis. He seemed to not want to return home until he is in a better situation. He lives alone in an apartment and is concerned that he will be able to manage his medications. He has a history of PTSD and anxiety disorder and schizoid personality but refuses to take any medications for his psychiatric issues. Exam Narrative Exam Narrative: Young male sitting up in the bed watching TV. He appears to be in no acute distress. Alert and oriented person place time circumstance. Lungs are clear to auscultation. Heart is regular rate and rhythm without murmur rub or gallop. Abdomen reveals normal bowel sounds soft but he has voluntary guarding and even with just trying to auscultate his abdomen he is complaining he has abdominal pain. I think that his pain is out of proportion to his physical findings and do not match his clinical course of overall improvement in his colitis. Just placing my stethoscope on his hand and he says is uncomfortable. Objective Objective Clinical Data: Abnormal lab results 07/28/19 07/28/19 07/28/19 Range/Units 06:20 06:20 06:20 RBC 3.42 L (4.50-6.00) m/cumm Hgb 8.6 L (13.5-17.5) g/dL Hct 27.8 L (40.0-50.0) % MCH 25.1 L (27.0-33.0) pg MCHC 30.9 L (32.0-36.0) g/dL RDW 15.9 H (11.8-14.1) % Plt Count 499 H (130-400) x1000/uL Absolute Lymphocytes 1.18 L (1.2-3.4) k/cumm Absolute Monocytes 0.71 H (0.11-0.7) k/cumm Potassium 3.2 L (3.5-5.1) mmol/L BUN 6 L (7-18) mg/dL Creatinine 0.56 L (0.70-1.30) mg/dL Glucose 124 H (74-106) mg/dL Calcium 8.1 L (8.5-10.1) mg/dL Alkaline Phosphatase 145 H (46-116) U/L C-Reactive Protein 0.99 H (0.0-0.3) mg/dL Total Protein 5.7 L (6.4-8.2) g/dL Albumin 1.2 L (3.4-5.0) g/dL Vital Signs Temperature 37.2 C 07/28/19 11:25 Temperature Source Temporal Artery Scan 07/28/19 11:25 Pulse 65 07/28/19 11:25 Pulse Rhythm Regular 07/28/19 09:37 Pulse 95 H 07/26/19 11:00 Respiratory Rate 16 07/28/19 11:25 Respiratory Effort Non-Labored 07/28/19 09:37 Respiratory Depth Normal 07/28/19 09:37 Respiratory Pattern Normal 07/28/19 09:37 Blood Pressure 117/66 07/28/19 11:25 Blood Pressure Mean 93 07/26/19 17:16 Blood Pressure Position Supine 07/26/19 17:16 Pulse Oximetry 96 07/28/19 11:25 Oxygen Delivery Method Room Air 07/28/19 11:25 Oxygen Flow Rate 0 07/28/19 11:25 Pain Level 4 07/28/19 11:25 Intake & Output 07/27/19 07/28/19 07/28/19 23:59 11:59 23:59 Intake Total 1150 / 3954.64 170 / 540 370 / 540 Balance 1150 / 3954.64 170 / 540 370 / 540 Intake: IV 420 / 2264.64 170 / 170 Oral 730 / 1690 370 / 370 Other: Urine Color Yellow Yellow Urine Appearance Clear Clear Comment per patient rate. voids in toilet independantly Stool Size Large Stool Characteristics Soft Formed Brown Voiding Methods Toilet Toilet Laboratory Results WBC 7.88 k/cumm (4.4-10.8) D 07/28/19 06:20 RBC 3.42 m/cumm (4.50-6.00) L 07/28/19 06:20 Hgb 8.6 g/dL (13.5-17.5) L 07/28/19 06:20 Hct 27.8 % (40.0-50.0) L 07/28/19 06:20 MCV 81.3 fL (80-95) 07/28/19 06:20 MCH 25.1 pg (27.0-33.0) L 07/28/19 06:20 MCHC 30.9 g/dL (32.0-36.0) L 07/28/19 06:20 RDW 15.9 % (11.8-14.1) H 07/28/19 06:20 Plt Count 499 x1000/uL (130-400) H 07/28/19 06:20 MPV 8.8 fL (8.0-11.0) 07/28/19 06:20 Immature Gran % See Differential 07/28/19 06:20 Neutrophils % 68.0 07/28/19 06:20 Band Neutrophils % 3.0 % 07/28/19 06:20 Lymphocytes % 13.0 07/28/19 06:20 Atypical Lymphs % 2 07/28/19 06:20 Monocytes % 9.0 07/28/19 06:20 Eosinophils % 0.0 07/28/19 06:20 Basophils % 1.0 07/28/19 06:20 Metamyelocytes % 2.0 % 07/28/19 06:20 Myelocytes % 2.0 % 07/28/19 06:20 Absolute Neutrophils 5.59 k/cumm (1.2-6.7) 07/28/19 06:20 Absolute Lymphocytes 1.18 k/cumm (1.2-3.4) L 07/28/19 06:20 Absolute Monocytes 0.71 k/cumm (0.11-0.7) H 07/28/19 06:20 Absolute Eosinophils 0.00 k/cumm (0.0-0.7) 07/28/19 06:20 Absolute Basophils 0.08 k/cumm (0.0-0.2) 07/28/19 06:20 Differential Comment Manual differential 07/28/19 06:20 RBC Morphology See below 07/28/19 06:20 Polychromasia Present 07/28/19 06:20 Hypochromasia 2+ 07/28/19 06:20 Poikilocytosis 2+ 07/28/19 06:20 Anisocytosis 1+ 07/27/19 06:40 Microcytosis 1+ 07/27/19 06:40 Parasite Present See below 07/24/19 11:20 ESR 64 mm/hr (0-15) H 07/27/19 06:40 PT 11.0 sec (9.3-11.0) 07/28/19 06:20 INR 1.1 (0.9-1.1) 07/28/19 06:20 Sodium 142 mmol/L (136-145) 07/28/19 06:20 Potassium 3.2 mmol/L (3.5-5.1) L 07/28/19 06:20 Chloride 104 mmol/L (98-107) 07/28/19 06:20 Carbon Dioxide 29.8 mmol/L (21.0-32.0) 07/28/19 06:20 Anion Gap 8.2 mmol/L (3-11) 07/28/19 06:20 BUN 6 mg/dL (7-18) L 07/28/19 06:20 Creatinine 0.56 mg/dL (0.70-1.30) L 07/28/19 06:20 Estimated GFR/1.73 m2 >= 60.00 (mL/min/1.73m2) 07/28/19 06:20 Glucose 124 mg/dL (74-106) H 07/28/19 06:20 Calcium 8.1 mg/dL (8.5-10.1) L 07/28/19 06:20 Magnesium 1.9 mg/dL (1.8-2.4) 07/28/19 06:20 Iron 61 ug/dL (65-175) L 07/26/19 09:00 TIBC 103 ug/dL (250-450) L 07/26/19 09:00 Transferrin % Sat 59 % (20-55) H 07/26/19 09:00 Ferritin 350 ng/mL (26-388) 07/26/19 09:00 Total Bilirubin 0.3 mg/dL (0.2-1.0) 07/28/19 06:20 Conjugated Bilirubin 0.09 mg/dL (0.00-0.20) 07/28/19 06:20 AST 21 U/L (15-37) 07/28/19 06:20 ALT 57 U/L (16-63) 07/28/19 06:20 Alkaline Phosphatase 145 U/L (46-116) H 07/28/19 06:20 C-Reactive Protein 0.99 mg/dL (0.0-0.3) H 07/28/19 06:20 Total Protein 5.7 g/dL (6.4-8.2) L 07/28/19 06:20 Albumin 1.2 g/dL (3.4-5.0) L 07/28/19 06:20 Lipase 78 U/L (73-393) 07/24/19 08:18 Vitamin B12 > 2000 pg/mL (193-986) H 07/25/19 06:00 Folate 7.5 ng/mL (8.6-20.0) L 07/25/19 06:00 TSH 0.23 uIU/mL (0.36-3.74) L 07/26/19 09:00 Stool Description Not Applicable 07/24/19 11:20 Stool Campylobacter PCR Cancelled 07/24/19 12:15 Stool Salmonella PCR Cancelled 07/24/19 12:15 Stool Shigella PCR Cancelled 07/24/19 12:15 Salicylates < 2.8 mg/dL (2.8-20.0) L 07/24/19 08:18 Urine Opiates Screen Positive (Negative) A 07/24/19 11:04 Urine Methadone Screen Negative (Negative) 07/24/19 11:04 Acetaminophen < 2 ug/mL (10-30) L 07/26/19 01:01 Ur Barbiturates Screen Negative (Negative) 07/24/19 11:04 Ur Tricyclics Screen Negative (Negative) 07/24/19 11:04 Ur Amphetamines Screen Negative (Negative) 07/24/19 11:04 U Benzodiazepines Scrn Negative (Negative) 07/24/19 11:04 Urine Cocaine Screen Negative (Negative) 07/24/19 11:04 Ur THC Screen Negative (Negative) 07/24/19 11:04 ANCA Pattern Cancelled 07/25/19 06:00 ANCA Pattern Not Applicable 07/25/19 06:00 ANCA CMMT Negative 07/25/19 06:00 Neutrophil-Specific Ab Cancelled 07/25/19 06:00 Neutrophil-Specific Ab Cancelled 07/25/19 06:00 HIV 1&2 Ag/Ab, 4th Gen Negative (Negative) 07/25/19 06:00 S.cerevisiae IgG Ab Cancelled 07/25/19 06:00 S.cerevisiae IgG Ab Cancelled 07/25/19 06:00 S.cerevisiae IgA Ab Cancelled 07/25/19 06:00 S.cerevisiae IgA Ab Cancelled 07/25/19 06:00 Shiga Toxin (PCR) Cancelled 07/24/19 12:15 Patient ABO/Rh A Positive 07/24/19 08:18 Antibody Screen Negative 07/24/19 08:18
[2019-07-28 16:13] VITALS: BP 121/73; PULSE 51; RESP 17; TEMP 37; O2SAT 100
[2019-07-28] MEDS: traMADol 50 MG TAB 100 MG PO (16:13)
--- NOTE | 2019-07-28 16:15 | PDOC.CMPRO ---
- If Service Date Differs Date of service: 07/28/19 Time of Service: 16:16 Care Management Progress Note S/O: Jordon is lying in bed when CM comes to meet with him. He reports his pain medication has been changed from I.V. to PO meds and states the pills are doing nothing for his pain. He expresses a lot of anxiety over his new diagnosis of IBD and shares concerns of how this diagnosis will impact the remainder of his life. CM continues to follow. A: Jordon is a 33 year old male admitted to [facility] on 07/24/2019 for a Tylenol overdose and acute colitis. P: Jordon will be discharged home when medically cleared by provider. CM is assisting patient in getting services established with a community based therapist. CM continues to follow and to support discharge planning needs.
[2019-07-28] MEDS: HYDROmorphone 2 MG TAB PO ×2 (16:40→20:54)
[2019-07-28 20:13] VITALS: BP 117/83; PULSE 74; RESP 18; TEMP 36.8; O2SAT 95
[2019-07-28] MEDS: Famotidine 20 MG TAB PO (21:52)
[2019-07-29] MEDS: HYDROmorphone 2 MG TAB PO ×5 (02:41→20:28)
[2019-07-29] MEDS: Normal Saline Flush 10 ML SYR IVP ×5 (04:04→18:20)
[2019-07-29] MEDS: diphenhydrAMINE 25 MG CAP PO (04:04)
[2019-07-29] MEDS: metroNIDAZOLE 500 MG/100 ML BAG 100 MG IVPB ×4 (04:04→21:47)
[2019-07-29] MEDS: predniSONE 20 MG TAB 60 MG PO (07:40)
[2019-07-29] MEDS: Lactobacillus Acidophilus CAP 1 CAP PO ×3 (07:40→20:28)
[2019-07-29] MEDS: Folic Acid 1 MG TAB PO (07:41)
[2019-07-29 07:45] VITALS: BP 128/78; PULSE 95; RESP 18; TEMP 37; O2SAT 96
[2019-07-29] MEDS: Famotidine 20 MG TAB PO ×2 (08:17→20:30)
[2019-07-29] MEDS: LORazepam 1 MG TAB PO ×2 (10:34→17:47)
[2019-07-29 11:26] VITALS: BP 131/80; PULSE 54; RESP 19; TEMP 36.2; O2SAT 97
--- NOTE | 2019-07-29 13:23 | PGE_ITS ---
Date of Service Date of service: 07/29/19 Time of Service: 13:23 Assessment and Plan Assessment and plan (1) IBD (inflammatory bowel disease): Status: Acute Assessment and plan: still awaiting flex sig bx results. He continues to improve. I will keep him on prednisone and taper him as an outpatient. He may need to be discharged before we have a confirmed biopsy results. (2) Acute hemorrhagic colitis: Status: Resolved Assessment and plan: As above. (3) Transaminitis: Status: Acute Assessment and plan: Resolving. He did not have any labs this a.m. I will repeat his labs (CBC, CMP, Mg) in the a.m. prior to discharge. (4) Discharge planning issues: Status: Acute Assessment and plan: I explained to the patient he should talk with care management and they can coordinate with [facility] human services regarding obtaining any additional services needs to help him manage his medications and to obtain follow-up regarding his colitis. Subjective Subjective Interval history since last seen: Patient continues to improve. He is now tolerating a regular diet. He is still requiring some oral dilaudid for his abdominal pain however I suspect that his reported pain is out of proprotion to his clinical findings. he is having formed, soft bowel movements w/out hemorrhage. I told him that he will probably be discharged tomorrow. He is timmy rned about returning home due to his mental health issues. informed me that he does not like the fact that his mother is his financial guardian and she only pays for what he needs. He wants to be in control of his own finances so he can spend on what he wants rather than what he needs. I told him that I can not help with his social issues but that he will be discharged when he is medically ready and I think that he has reached that point. He will need to follow up with his PCP to arrange for GI follow up to manage his IBD. We are still awaiting results of his pathology from his biopsy. Exam Narrative Exam Narrative: Young male lying in bed in no distress. He finished lunch. He is A&Ox3, abdomen is soft with minimal tenderness. When I distract him with conversation I am able to palpate more deeply without him pulling my hand away or complaining of pain. He has active bowel sounds x 4 quadrants. No palpable masses and no rebound tenderness. Objective Objective Clinical Data: Vital Signs Temperature 36.2 C L 12/08/19 11:26 Temperature Source Skin 07/29/19 11:26 Pulse 54 L 07/29/19 11:26 Pulse Rhythm Regular 07/29/19 09:12 Pulse 95 H 07/26/19 11:00 Respiratory Rate 19 07/29/19 11:26 Respiratory Effort Non-Labored 07/29/19 09:12 Respiratory Depth Normal 07/29/19 09:12 Respiratory Pattern Normal 07/29/19 09:12 Blood Pressure 131/80 07/29/19 11:26 Blood Pressure Mean 93 07/26/19 17:16 Blood Pressure Position Supine 07/26/19 17:16 Pulse Oximetry 97 07/29/19 11:26 Oxygen Delivery Method Room Air 07/29/19 11:26 Oxygen Flow Rate 0 07/29/19 11:26 Pain Level 7 07/29/19 11:44 Intake & Output 07/28/19 07/29/19 07/29/19 23:59 11:59 23:59 Intake Total 590 / 860 1400 / 1400 Balance 590 / 860 1400 / 1400 Intake: IV 220 / 490 200 / 200 Oral 370 / 370 1200 / 1200 Other: Urine Color Yellow Urine Appearance Clear Clear Comment voids in toilet independantly PT would only let me do it once and it was 37ml. Stool Size Small Stool Characteristics Soft Soft Formed Brown Brown Voiding Methods Toilet Laboratory Results WBC 7.88 k/cumm (4.4-10.8) D 07/28/19 06:20 RBC 3.42 m/cumm (4.50-6.00) L 07/28/19 06:20 Hgb 8.6 g/dL (13.5-17.5) L 07/28/19 06:20 Hct 27.8 % (40.0-50.0) L 07/28/19 06:20 MCV 81.3 fL (80-95) 07/28/19 06:20 MCH 25.1 pg (27.0-33.0) L 07/28/19 06:20 MCHC 30.9 g/dL (32.0-36.0) L 07/28/19 06:20 RDW 15.9 % (11.8-14.1) H 07/28/19 06:20 Plt Count 499 x1000/uL (130-400) H 07/28/19 06:20 MPV 8.8 fL (8.0-11.0) 07/28/19 06:20 Immature Gran % See Differential 07/28/19 06:20 Neutrophils % 68.0 07/28/19 06:20 Band Neutrophils % 3.0 % 07/28/19 06:20 Lymphocytes % 13.0 07/28/19 06:20 Atypical Lymphs % 2 07/28/19 06:20 Monocytes % 9.0 07/28/19 06:20 Eosinophils % 0.0 07/28/19 06:20 Basophils % 1.0 07/28/19 06:20 Metamyelocytes % 2.0 % 07/28/19 06:20 Myelocytes % 2.0 % 07/28/19 06:20 Absolute Neutrophils 5.59 k/cumm (1.2-6.7) 07/28/19 06:20 Absolute Lymphocytes 1.18 k/cumm (1.2-3.4) L 07/28/19 06:20 Absolute Monocytes 0.71 k/cumm (0.11-0.7) H 07/28/19 06:20 Absolute Eosinophils 0.00 k/cumm (0.0-0.7) 07/28/19 06:20 Absolute Basophils 0.08 k/cumm (0.0-0.2) 07/28/19 06:20 Differential Comment Manual differential 07/28/19 06:20 RBC Morphology See below 07/28/19 06:20 Polychromasia Present 07/28/19 06:20 Hypochromasia 2+ 07/28/19 06:20 Poikilocytosis 2+ 07/28/19 06:20 Anisocytosis 1+ 07/27/19 06:40 Microcytosis 1+ 07/27/19 06:40 Parasite Present See below 07/24/19 11:20 ESR 64 mm/hr (0-15) H 07/27/19 06:40 PT 11.0 sec (9.3-11.0) 07/28/19 06:20 INR 1.1 (0.9-1.1) 07/28/19 06:20 Sodium 142 mmol/L (136-145) 07/28/19 06:20 Potassium 3.2 mmol/L (3.5-5.1) L 07/28/19 06:20 Chloride 104 mmol/L (98-107) 07/28/19 06:20 Carbon Dioxide 29.8 mmol/L (21.0-32.0) 07/28/19 06:20 Anion Gap 8.2 mmol/L (3-11) 07/28/19 06:20 BUN 6 mg/dL (7-18) L 07/28/19 06:20 Creatinine 0.56 mg/dL (0.70-1.30) L 07/28/19 06:20 Estimated GFR/1.73 m2 >= 60.00 (mL/min/1.73m2) 07/28/19 06:20 Glucose 124 mg/dL (74-106) H 07/28/19 06:20 Calcium 8.1 mg/dL (8.5-10.1) L 07/28/19 06:20 Magnesium 1.9 mg/dL (1.8-2.4) 07/28/19 06:20 Iron 61 ug/dL (65-175) L 07/26/19 09:00 TIBC 103 ug/dL (250-450) L 07/26/19 09:00 Transferrin % Sat 59 % (20-55) H 07/26/19 09:00 Ferritin 350 ng/mL (26-388) 07/26/19 09:00 Total Bilirubin 0.3 mg/dL (0.2-1.0) 07/28/19 06:20 Conjugated Bilirubin 0.09 mg/dL (0.00-0.20) 07/28/19 06:20 AST 21 U/L (15-37) 07/28/19 06:20 ALT 57 U/L (16-63) 07/28/19 06:20 Alkaline Phosphatase 145 U/L (46-116) H 07/28/19 06:20 C-Reactive Protein 0.99 mg/dL (0.0-0.3) H 07/28/19 06:20 Total Protein 5.7 g/dL (6.4-8.2) L 07/28/19 06:20 Albumin 1.2 g/dL (3.4-5.0) L 07/28/19 06:20 Lipase 78 U/L (73-393) 07/24/19 08:18 Vitamin B12 > 2000 pg/mL (193-986) H 07/25/19 06:00 Folate 7.5 ng/mL (8.6-20.0) L 07/25/19 06:00 TSH 0.23 uIU/mL (0.36-3.74) L 07/26/19 09:00 Stool Description Not Applicable 07/24/19 11:20 Stool Campylobacter PCR Cancelled 07/24/19 12:15 Stool Salmonella PCR Cancelled 07/24/19 12:15 Stool Shigella PCR Cancelled 07/24/19 12:15 Salicylates < 2.8 mg/dL (2.8-20.0) L 07/24/19 08:18 Urine Opiates Screen Positive (Negative) A 07/24/19 11:04 Urine Methadone Screen Negative (Negative) 07/24/19 11:04 Acetaminophen < 2 ug/mL (10-30) L 07/26/19 01:01 Ur Barbiturates Screen Negative (Negative) 07/24/19 11:04 Ur Tricyclics Screen Negative (Negative) 07/24/19 11:04 Ur Amphetamines Screen Negative (Negative) 07/24/19 11:04 U Benzodiazepines Scrn Negative (Negative) 07/24/19 11:04 Urine Cocaine Screen Negative (Negative) 07/24/19 11:04 Ur THC Screen Negative (Negative) 07/24/19 11:04 ANCA Pattern Cancelled 07/25/19 06:00 ANCA Pattern Not Applicable 07/25/19 06:00 ANCA CMMT Negative 07/25/19 06:00 Neutrophil-Specific Ab Cancelled 07/25/19 06:00 Neutrophil-Specific Ab Cancelled 07/25/19 06:00 HIV 1&2 Ag/Ab, 4th Gen Negative (Negative) 07/25/19 06:00 S.cerevisiae IgG Ab Cancelled 07/25/19 06:00 S.cerevisiae IgG Ab Cancelled 07/25/19 06:00 S.cerevisiae IgA Ab Cancelled 07/25/19 06:00 S.cerevisiae IgA Ab Cancelled 07/25/19 06:00 Shiga Toxin (PCR) Cancelled 07/24/19 12:15 Patient ABO/Rh A Positive 07/24/19 08:18 Antibody Screen Negative 07/24/19 08:18
[2019-07-29] MEDS: Potassium Chloride 20 MEQ TABCR PO (14:13)
[2019-07-29 15:14] VITALS: BP 136/83; PULSE 81; RESP 18; TEMP 36.5; O2SAT 99
[2019-07-29] MEDS: Mylanta Suspension 30 ML CUP PO (16:30)
--- NOTE | 2019-07-29 17:53 | PDOC.CMPRO ---
- If Service Date Differs Date of service: 07/29/19 Time of Service: 17:53 Care Management Progress Note S/O: Jordon is sitting up in bed when CM meets with him today. He reports he is feeling much better but does not feel ready to return home. He shares everyone at [facility] has been so kind and caring and says it will be difficult for him to return to an empty apartment where no one cares about him. Jordon demonstrates a lot of insight into his anxiety, depression and lack of motivation and appropriately asks CM for help in establishing supports in the community. CM will continue to follow. A: Jordon is a 33 year old male admitted to [facility] on 07/24/2019 for a Tylenol overdose and acute colitis. P: Jordon will return home when medically cleared by provider. CM will coordinate additional supports in the community, such as [facility] case management and outpatient therapy. CM continues to follow and to support discharge planning needs.
[2019-07-29] MEDS: traMADol 50 MG TAB 100 MG PO (18:28)
[2019-07-29 20:16] VITALS: BP 128/76; PULSE 70; RESP 19; TEMP 37.1; O2SAT 96
[2019-07-29] MEDS: Potassium Chloride 10 MEQ CAPCR 20 MEQ PO (20:28)
[2019-07-29] MEDS: traZODone 100 MG TAB PO (20:30)
[2019-07-29 23:21] VITALS: BP 123/73; PULSE 84; RESP 19; TEMP 35.9; O2SAT 96
[2019-07-30] MEDS: HYDROmorphone 2 MG TAB PO ×3 (02:20→15:55)
[2019-07-30] MEDS: LORazepam 1 MG TAB PO ×3 (02:20→14:32)
[2019-07-30 03:45] VITALS: BP 111/71; PULSE 50; RESP 18; TEMP 36.6; O2SAT 94
[2019-07-30] MEDS: metroNIDAZOLE 500 MG/100 ML BAG 100 MG IVPB ×2 (04:10→10:15)
[2019-07-30] MEDS: Normal Saline Flush 10 ML SYR IVP (04:10)
[2019-07-30 08:05] VITALS: BP 117/76; PULSE 83; RESP 18; TEMP 37; O2SAT 94
[2019-07-30 08:11] LABS: ALT 65 U/L (16-63); AST 20 U/L (15-37); Albumin 2.6 g/dL (3.4-5.0); Alkaline Phosphatase 145 U/L (46-116); Anion Gap 10.6 mmol/L (3-11); BUN 9 mg/dL (7-18); Bilirubin, Total 0.2 mg/dL (0.2-1.0); CO2 26.4 mmol/L (21.0-32.0); CREATININE 0.94 mg/dL (0.70-1.30); Calcium 8.6 mg/dL (8.5-10.1); Chloride 103 mmol/L (98-107); Glucose 108 mg/dL (74-106); Magnesium 2.1 mg/dL (1.8-2.4); Potassium 3.1 mmol/L (3.5-5.1); Sodium 140 mmol/L (136-145); Total Protein 7.1 g/dL (6.4-8.2)
[2019-07-30] MEDS: predniSONE 20 MG TAB 60 MG PO (08:22)
[2019-07-30] MEDS: Potassium Chloride 10 MEQ CAPCR 20 MEQ PO ×2 (08:22→12:05)
[2019-07-30] MEDS: Folic Acid 1 MG TAB PO (08:22)
[2019-07-30] MEDS: Famotidine 20 MG TAB PO (08:22)
[2019-07-30] MEDS: Lactobacillus Acidophilus CAP 1 CAP PO ×2 (08:23→13:27)
[2019-07-30 08:33] LABS: Abs Immature Grans 0.82 k/cumm (0.0-0.09); Absolute Eosinophil Count 0.11 k/cumm (0.0-0.7); HCT 35.2 % (40.0-50.0); HGB 11.2 g/dL (13.5-17.5); Mean Corp. HGB Concentration 31.8 g/dL (32.0-36.0); Mean Corpuscular Hemoglobin 26.4 pg (27.0-33.0); Platelet Count 605 x1000/uL (130-400); RBC 4.24 m/cumm (4.50-6.00); RBC Distribution Width 17.4 % (11.8-14.1); White Blood Cell Count 11.12 k/cumm (4.4-10.8)
[2019-07-30 08:47] LABS: Absolute Basophil Count 0.11 k/cumm (0.0-0.2); Absolute Lymphocyte Count 3.56 k/cumm (1.2-3.4); Absolute Monocyte Count 0.67 k/cumm (0.11-0.7); Atypical Lymphocytes % 1; Diff Comment Manual Differential
[2019-07-30 08:48] LABS: Polychromasia Present
--- NOTE | 2019-07-30 09:28 | PDOC.CMPRO ---
- If Service Date Differs Date of service: 07/30/19 Time of Service: 09:28 Care Management Progress Note S/O: Jordon is up and pacing the floor when CM comes to meet with him. He expresses anxiety around returning home and shares he is not mentally ready to discharge home. CM supports patient in calling community therapists. CM continues to follow. A: Jordon is a 33 year old male admitted to [facility] on 07/24/2019 for a Tylenol overdose and acute colitis. P: Jordon will be discharged home when medically cleared by provider. CM coordinated Jordon getting an appointment with Julian Bull, therapist, for Wednesday, July 31, 2019 at 11:00 am. CM also coordinated referral to [facility] case management to provide Jordon with additional community supports. Transport home will either be provided by Jordon' cousin or [facility] [[email or web address]] when ready. CM continues to follow.
[2019-07-30] MEDS: Potassium Chloride 20 MEQ TABCR 40 MEQ PO (10:01)
--- NOTE | 2019-07-30 10:45 | NS.NUTBLAN_ITS ---
Date of service: 07/30/19 Time of Service: 10:45 Nutritional Consult ASSESSMENT: Jordon is currently meeting 100% nutrient and fluid needs, much improved and no longer considered at nutritional risk. Weight acceptable and stable. Met with Jordon today and discussed access to meals/food prep in home. Jordon has food stamps and lives across street from grocery store. Jordon is concerned that he will be depressed and won't be able to practice self care. INTERVENTION: Reviewed easy meal options that require minimal cooking and emphasized importance of good nutrition in relation to mental health. Jordon was receptive to information. Also provides Jordon with education material on lower fiber diets that may help with GI symptoms. Provided travel writer's contact info for further questions/concerns. PLAN: Will follow weight and PO intake in hospital; He knows he can contact [facility] nutrition with questions and concerns. Time Spent in Nutritional Counseling and Treatment: 25 minutes
[2019-07-30 11:05] VITALS: BP 134/79; PULSE 94; RESP 20; TEMP 36.7; O2SAT 94
[2019-07-30] MEDS: Mylanta Suspension 30 ML CUP PO (12:04)
--- NOTE | 2019-07-30 12:46 | PGE_ITS ---
Date of Service Date of service: 07/30/19 Time of Service: 12:47 Assessment and Plan Assessment and plan (1) IBD (inflammatory bowel disease): Status: Acute Assessment and plan: -still do not have Bx results. [facility] was contacted and message left. clinically- pt has minimal pain and is tolerating low residue diet. His stools are starting to form and has no overt bleeding. He defn needs to see [place] [facility] [place] of [place]. If we cannot get him in w/ in the next x2 wks, than he should have appt to outpt infusion of remicade 5mg/kg on 08/09. + lab work. I am willing to sign the orders and manage the pt as outpt until he gets in to see GI. but ultimately- he needs to be seen and managed by GI. I would d/c home on tapering prednisone and try to avoid narcs. low fiber diet po iron f/u GI Subjective Subjective Interval history since last seen: Pt is doing well. no headaches. No CP or SOB. no productive cough. no dysuria. no leg pain or swelling. His stools are pudding consistency- x1 so far today. no gross blood. Still says he is having abdominal pain- but is sitting in his room eating and watching TV and appears comfortable. From a surg standpoint- pt can eb d/c'ed home and needs to F/u w/ GI at [facility] to manage his immunotherapy. Now pt states he doesn't want to leave until tomorrow. no mouth pain/sores. no rashes. diarrhea is improving. Exam Const General: cooperative, healthy appearing, comfortable, no acute distress, well developed and well groomed Nutritional Appearance: average body habitus and well nourished Orientation: alert, awake and oriented x3 [facility] Head: normal to inspection, normocephalic and atraumatic Ears: hearing grossly normal bilaterally and external ears normal General nose exam: external nose normal Face and sinus: normal facial exam and sinuses nontender Mouth: oral mucosae normal, lip normal, tongue normal and moist mucous membranes Teeth and gingiva: dentition normal Eyes General: appearance normal, both eyes and all related structures Conjunctivae: conjunctivae normal Sclera: sclerae normal Pupils: PERRL Neck Neck: normal visual inspection and full ROM Chest Chest: normal inspection of the chest Resp Effort & Inspection: normal respiratory effort, able to speak in complete sentences, no cough, no nasal flaring, not tachypneic and no use of accessory muscles Auscultation: clear to auscultation bilaterally, no rales, no rhonchi and no wheezes Cardio Jugular venous pressure: no JVD Rate: regular rate Rhythm: regular rhythm GI Inspection: normal to inspection, no edema and non-distended Palpation: soft, no masses, tender (minmal in lower abdom ) and No ascites Auscultation: normal bowel sounds Skin General skin exam: no rashes or lesions noted Trauma: no lacerations or abrasions Neuro General: alert, oriented x3, oriented, gait normal, moves all extremities, no focal motor deficits and CN's II-XI intact bilaterally Cognition: normal cognition Speech: speech normal Gait: normal gait Motor: muscle tone normal throughout Extrem General: normal to inspection, full ROM and no clubbing, cyanosis or edema Psych Appearance: grossly normal and well kempt Mental Status: mental status grossly normal Speech and Movement: speech and movement normal Affect: normal affect Objective Objective Clinical Data: Abnormal lab results 07/30/19 07/30/19 Range/Units 07:14 07:14 WBC 11.12 H (4.4-10.8) k/cumm RBC 4.24 L (4.50-6.00) m/cumm Hgb 11.2 L D (13.5-17.5) g/dL Hct 35.2 L D (40.0-50.0) % MCH 26.4 L (27.0-33.0) pg MCHC 31.8 L (32.0-36.0) g/dL RDW 17.4 H (11.8-14.1) % Plt Count 605 H (130-400) x1000/uL Absolute Lymphocytes 3.56 H (1.2-3.4) k/cumm Potassium 3.1 L (3.5-5.1) mmol/L Glucose 108 H (74-106) mg/dL ALT 65 H (16-63) U/L Alkaline Phosphatase 145 H (46-116) U/L Albumin 2.6 L (3.4-5.0) g/dL Vital Signs Temperature 36.7 C 07/30/19 11:05 Temperature Source Tympanic 07/30/19 11:05 Pulse 94 H 07/30/19 11:05 Pulse Rhythm Regular 07/30/19 11:01 Pulse 95 H 07/26/19 11:00 Respiratory Rate 20 07/30/19 11:05 Respiratory Effort Non-Labored 07/30/19 11:01 Respiratory Depth Normal 07/30/19 11:01 Respiratory Pattern Normal 07/30/19 11:01 Blood Pressure 134/79 07/30/19 11:05 Blood Pressure Mean 93 07/26/19 17:16 Blood Pressure Position Supine 07/26/19 17:16 Pulse Oximetry 94 L 07/30/19 11:05 Oxygen Delivery Method Room Air 07/30/19 11:05 Oxygen Flow Rate 0 07/30/19 11:05 Pain Level 6 07/30/19 11:05 Intake & Output 07/29/19 07/30/19 07/30/19 23:59 11:59 23:59 Intake Total 1160 / 2800 250 / 250 Balance 1160 / 2800 250 / 250 Weight 66.8 kg Intake: IV 200 / 400 Oral 960 / 2400 250 / 250 Other: Urine Color Yellow Yellow Urine Appearance Clear Clear Comment pt voids independantly Voiding Methods Toilet Toilet Laboratory Results WBC 11.12 k/cumm (4.4-10.8) H 07/30/19 07:14 RBC 4.24 m/cumm (4.50-6.00) L 07/30/19 07:14 Hgb 11.2 g/dL (13.5-17.5) L D 07/30/19 07:14 Hct 35.2 % (40.0-50.0) L D 07/30/19 07:14 MCV 83.0 fL (80-95) 07/30/19 07:14 MCH 26.4 pg (27.0-33.0) L 07/30/19 07:14 MCHC 31.8 g/dL (32.0-36.0) L 07/30/19 07:14 RDW 17.4 % (11.8-14.1) H 07/30/19 07:14 Plt Count 605 x1000/uL (130-400) H 07/30/19 07:14 MPV 9.0 fL (8.0-11.0) 07/30/19 07:14 Immature Gran % See Differential 07/30/19 07:14 Neutrophils % 51.0 07/30/19 07:14 Band Neutrophils % 3.0 % 07/30/19 07:14 Lymphocytes % 31.0 07/30/19 07:14 Atypical Lymphs % 1 07/30/19 07:14 Monocytes % 6.0 07/30/19 07:14 Eosinophils % 1.0 07/30/19 07:14 Basophils % 1.0 07/30/19 07:14 Metamyelocytes % 3.0 % 07/30/19 07:14 Myelocytes % 3.0 % 07/30/19 07:14 Absolute Neutrophils 6.00 k/cumm (1.2-6.7) 07/30/19 07:14 Absolute Lymphocytes 3.56 k/cumm (1.2-3.4) H 07/30/19 07:14 Absolute Monocytes 0.67 k/cumm (0.11-0.7) 07/30/19 07:14 Absolute Eosinophils 0.11 k/cumm (0.0-0.7) 07/30/19 07:14 Absolute Basophils 0.11 k/cumm (0.0-0.2) 07/30/19 07:14 Differential Comment Manual differential 07/30/19 07:14 RBC Morphology See below 07/30/19 07:14 Polychromasia Present 07/30/19 07:14 Hypochromasia 2+ 07/28/19 06:20 Poikilocytosis 2+ 07/28/19 06:20 Anisocytosis 1+ 07/27/19 06:40 Microcytosis 1+ 07/27/19 06:40 Parasite Present See below 07/24/19 11:20 ESR 64 mm/hr (0-15) H 07/27/19 06:40 PT 11.0 sec (9.3-11.0) 07/28/19 06:20 INR 1.1 (0.9-1.1) 07/28/19 06:20 Sodium 140 mmol/L (136-145) 07/30/19 07:14 Potassium 3.1 mmol/L (3.5-5.1) L 07/30/19 07:14 Chloride 103 mmol/L (98-107) 07/30/19 07:14 Carbon Dioxide 26.4 mmol/L (21.0-32.0) 07/30/19 07:14 Anion Gap 10.6 mmol/L (3-11) 07/30/19 07:14 BUN 9 mg/dL (7-18) 07/30/19 07:14 Creatinine 0.94 mg/dL (0.70-1.30) 07/30/19 07:14 Estimated GFR/1.73 m2 >= 60.00 (mL/min/1.73m2) 07/30/19 07:14 Glucose 108 mg/dL (74-106) H 07/30/19 07:14 Calcium 8.6 mg/dL (8.5-10.1) 07/30/19 07:14 Magnesium 2.1 mg/dL (1.8-2.4) 07/30/19 07:14 Iron 61 ug/dL (65-175) L 07/26/19 09:00 TIBC 103 ug/dL (250-450) L 07/26/19 09:00 Transferrin % Sat 59 % (20-55) H 07/26/19 09:00 Ferritin 350 ng/mL (26-388) 07/26/19 09:00 Total Bilirubin 0.2 mg/dL (0.2-1.0) 07/30/19 07:14 Conjugated Bilirubin 0.09 mg/dL (0.00-0.20) 07/28/19 06:20 AST 20 U/L (15-37) 07/30/19 07:14 ALT 65 U/L (16-63) H 07/30/19 07:14 Alkaline Phosphatase 145 U/L (46-116) H 07/30/19 07:14 C-Reactive Protein 0.99 mg/dL (0.0-0.3) H 07/28/19 06:20 Total Protein 7.1 g/dL (6.4-8.2) 07/30/19 07:14 Albumin 2.6 g/dL (3.4-5.0) L 07/30/19 07:14 Lipase 78 U/L (73-393) 07/24/19 08:18 Vitamin B12 > 2000 pg/mL (193-986) H 07/25/19 06:00 Folate 7.5 ng/mL (8.6-20.0) L 07/25/19 06:00 TSH 0.23 uIU/mL (0.36-3.74) L 07/26/19 09:00 Stool Description Not Applicable 07/24/19 11:20 Stool Campylobacter PCR Cancelled 07/24/19 12:15 Stool Salmonella PCR Cancelled 07/24/19 12:15 Stool Shigella PCR Cancelled 07/24/19 12:15 Salicylates < 2.8 mg/dL (2.8-20.0) L 07/24/19 08:18 Urine Opiates Screen Positive (Negative) A 07/24/19 11:04 Urine Methadone Screen Negative (Negative) 07/24/19 11:04 Acetaminophen < 2 ug/mL (10-30) L 07/26/19 01:01 Ur Barbiturates Screen Negative (Negative) 07/24/19 11:04 Ur Tricyclics Screen Negative (Negative) 07/24/19 11:04 Ur Amphetamines Screen Negative (Negative) 07/24/19 11:04 U Benzodiazepines Scrn Negative (Negative) 07/24/19 11:04 Urine Cocaine Screen Negative (Negative) 07/24/19 11:04 Ur THC Screen Negative (Negative) 07/24/19 11:04 ANCA Pattern Cancelled 07/25/19 06:00 ANCA Pattern Not Applicable 07/25/19 06:00 ANCA CMMT Negative 07/25/19 06:00 Neutrophil-Specific Ab Cancelled 07/25/19 06:00 Neutrophil-Specific Ab Cancelled 07/25/19 06:00 HIV 1&2 Ag/Ab, 4th Gen Negative (Negative) 07/25/19 06:00 S.cerevisiae IgG Ab Cancelled 07/25/19 06:00 S.cerevisiae IgG Ab Cancelled 07/25/19 06:00 S.cerevisiae IgA Ab Cancelled 07/25/19 06:00 S.cerevisiae IgA Ab Cancelled 07/25/19 06:00 Shiga Toxin (PCR) Cancelled 07/24/19 12:15 Patient ABO/Rh A Positive 07/24/19 08:18 Antibody Screen Negative 07/24/19 08:18
[2019-07-30 13:41] LABS: Potassium 4.4 mmol/L (3.5-5.1)
--- NOTE | 2019-07-30 14:44 | CHAPLAIN ---
Jordon said that over the weekend, he was feeling the best he's felt in a long time, but then was told he would be discharged today and that has made him anxious. He said he is concerned about returning home to an empty, messy apartment, with the same friends nearby, after having been here and been treated kindly. He said he doesn't believe the hospitalist understands how he feel about being discharged. Working with the Gas Leak Inspector, Jordon was able to contact two counselors to set up appointments for after he is discharged. Later in the day I escorted Jordon to the [employer] shop. He and the surgeon told him he could stay another night, but he had not yet had that confirmed by the hospitalist. He said he was relieved to think he might be staying over another day. His parents are on vacation for three weeks, and he said he has only one other person who he can rely, but not heavily.
--- NOTE | 2019-07-30 14:45 | DSE_ITS ---
Date of service: 07/30/19 Time of Service: 14:45 DS: Diagnosis Discharge Diagnosis (1) IBD (inflammatory bowel disease): Status: Acute Discharge Plan Disposition Patient Disposition: HOME Condition: Stable Discharge Details Chief Complaint: Abd Prob Clinical Impression: Colitis, Unintentional Tylenol overdose Reason For Visit: TYLENOL OVERDOSE, ACUTE COLITIS Admit Date/Time: 07/24/19 11:17 Admit Provider: Sharon Pride Attending Provider: Sharon Pride Primary Care Provider: Julian Bishop ED Provider: [facility] Hospital Course Hospital Course: 33-year-old male with a history of schizoid personality disorder, ADHD, hepatic steatosis and family history of inflammatory bowel disease presented to the emergency department on July 24, 2019 to [facility]. Patient previously been hospitalized at [facility] for complaints of diffuse abdominal pain along with bloody diarrhea. He states his symptoms been present for the past 4 months but is gotten more intense and constant for the past month he has been self-medicating with Tylenol. His initial presentation at [facility] was through the ED department where he was diagnosed with bacterial infection and discharged on oral antibiotics but when he returned he was admitted to the hospital for [address] scans were done and he was started on IV antibiotics and treated for colitis. Upon admission to [facility] he was found to have a transaminitis with an AST of 112 and ALT of 88 and an elevated Tylenol level of 32. Poison control was consulted and they recommended treatment with N- acetylcysteine since his Tylenol level was 32 at 12 hours postingestion. He reportedly had taken 10 extra strength Tylenol tablets approximately 12 hours prior to admission. Patient completed 48 hours of N-acetylcysteine per poison control's recommendation. He has transaminitis peaked on July 25 with ALT of 129 and an AST of 128 and alkaline phosphatase of 149. A total bilirubin of 0.4 with a conjugated bilirubin 0.17. These progressively improved to the point at discharge his ALT was down to 65 and his AST was normal at 20 and his alkaline phosphatase was 145 with a total bilirubin of 0.2. His acetaminophen level declined to less than 2 by July 25, 2019. He required narcotic analgesics to control his pain and required IV fluids. Patient was started on IV Flagyl and IV ciprofloxacin presumptively for an infectious colitis. Surgery was consulted and the patient was seen by Dr. Costa Johnston. He was set up for a flexible sigmoidoscopy. This was performed by Dr. Esquivel. Pathology report is still pending at this time but according to Dr. Esquivel there appeared to be severe inflammatory changes consistent with inflammatory bowel disease. Patient was started on infliximab 300 mg IV infusion which was given on July 26, 2019. He was also started on IV corticosteroids and transition over to oral prednisone. He is parenteral narcotics were switched to oral narcotics. Over the next 3 to 4 days after the infliximab his diarrhea resolved and he was having formed soft stools and no longer had bloody diarrhea. His IV Flagyl was switched to oral Flagyl but then discontinued. At the time of discharge she was eating well had a good appetite although he still complains of abdominal pain his complaints were out of proportion to his physical findings. Both Dr. Esquivel myself feels that he no longer needs narcotic analgesics to control his pain. However because he overused Tylenol and reluctant for him to use any NSAIDs or Tylenol to control his pain and will discharge him home on tramadol. Case management is working on setting him up with a GI specialist and Dr. Esquivel has arranged for him to receive another dose of infliximab on August 09, 2019 at 9 AM. Home Meds and New Rx's Prescriptions: New prednisone 20 mg Tablet 60 mg PO DAILY Qty: 30 RF: 0 tramadol 50 mg Tablet 100 mg PO Q6H PRN PRNQty: 20 RF: 0 folic acid 1 mg Tablet 1 mg PO DAILY Qty: 30 RF: 0 Continued melatonin 3 mg tablet 3 mg PO HS PRNRF: 0 fluticasone propionate 50 mcg/actuation spray,suspension 2 spray ABRAHAM DAILY Qty: 15.8 RF: 4 dextroamphetamine-amphetamine 30 mg tablet 30 mg PO BID MDD 60 mg Qty: 60 RF: 0 Discharge Instructions Instructions: Prednisone (By mouth), Ulcerative Colitis (DC) Additional Instructions: Continue prednisone dosage as prescribed. You will need to taper off this medication over the next few weeks. Please see your primary care provider in the next week to get your next prescription of prednisone at a reduced dosage. For inflammatory bowel disease prednisone is usually tapered down by 5 to 10 mg/day every week. Follow-up with the IV infusion team at [facility] on August 09, 2019 at 9 AM for your next infusion of infliximab. Your primary care provider should work with [facility] care management team to set you up with a medical staff manager for further evaluation of your inflammatory bowel disease. Stand Alone Forms: Nursing Discharge Form Referrals: INFUSION [Other] - 08/09/19 9:00 am Activity:: Activity as Tolerated Equipment/Supplies:: No Equipment Needed Diet:: As Tolerated Discharge Orders Discharge Orders: Discharge Order (Routine); Ordered 07/30/19 Ordered By: Jeff Jacinto DS: Summary Status at Discharge Functional status at discharge: independent ambulation Overall status at discharge: patient is back to baseline Mental Status: mental status grossly normal Speech and Movement: speech and movement normal Mood: congruent mood Affect: normal affect Time Spent with Patient providing and/or coordinating discharge services: Less than 30 minutes Exam Narrative Exam Narrative: See Dr. Esquivel's examination note from July 30, 2019. Psych Mental Status: mental status grossly normal Speech and Movement: speech and movement normal Mood: congruent mood Affect: normal affect DS: Data Vitals/I&O Vitals and I&O: Vital Signs Temperature 36.7 C 07/30/19 11:05 Temperature Source Tympanic 07/30/19 11:05 Pulse 94 H 07/30/19 11:05 Pulse Rhythm Regular 07/30/19 11:01 Pulse 95 H 07/26/19 11:00 Respiratory Rate 20 07/30/19 11:05 Respiratory Effort Non-Labored 07/30/19 11:01 Respiratory Depth Normal 07/30/19 11:01 Respiratory Pattern Normal 07/30/19 11:01 Blood Pressure 134/79 07/30/19 11:05 Blood Pressure Mean 93 07/26/19 17:16 Blood Pressure Position Supine 07/26/19 17:16 Pulse Oximetry 94 L 07/30/19 11:05 Oxygen Delivery Method Room Air 07/30/19 11:05 Oxygen Flow Rate 0 07/30/19 11:05 Pain Level 6 07/30/19 11:05 Intake & Output 07/29/19 07/30/19 07/30/19 23:59 11:59 23:59 Intake Total 1160 / 2800 350 / 350 Balance 1160 / 2800 350 / 350 Weight 66.8 kg Intake: IV 200 / 400 100 / 100 Oral 960 / 2400 250 / 250 Other: Urine Color Yellow Yellow Urine Appearance Clear Clear Comment pt voids independantly Voiding Methods Toilet Toilet Data Completed and Pending Labs on day of discharge: Labs from last 24 hours 07/30/19 07/30/19 07/30/19 13:20 07:14 07:14 WBC 11.12 H RBC 4.24 L Hgb 11.2 L D Hct 35.2 L D MCV 83.0 MCH 26.4 L MCHC 31.8 L RDW 17.4 H Plt Count 605 H MPV 9.0 Immature Gran % See Differential Neutrophils % 51.0 Band Neutrophils % 3.0 Lymphocytes % 31.0 Atypical Lymphs % 1 Monocytes % 6.0 Eosinophils % 1.0 Basophils % 1.0 Metamyelocytes % 3.0 Myelocytes % 3.0 Absolute Neutrophils 6.00 Absolute Lymphocytes 3.56 H Absolute Monocytes 0.67 Absolute Eosinophils 0.11 Absolute Basophils 0.11 Differential Comment Manual differential RBC Morphology See below Polychromasia Present Sodium 140 Potassium 4.4 D 3.1 L Chloride 103 Carbon Dioxide 26.4 Anion Gap 10.6 BUN 9 Creatinine 0.94 Estimated GFR/1.73 m2 >= 60.00 Glucose 108 H Calcium 8.6 Magnesium 2.1 Total Bilirubin 0.2 AST 20 ALT 65 H Alkaline Phosphatase 145 H Total Protein 7.1 Albumin 2.6 L [facility] Medical History (Updated 07/29/19 @ 19:15 by Jeff Jacinto) Allergic rhinitis (Chronic) Attention deficit hyperactivity disorder (ADHD), 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 Schizoid personality disorder (Chronic 08/18/15) Shoulder pain, right (Acute 08/18/15) Surgical History History of dental surgery (Acute) Family History Mother Crohn disease Paternal Grandfather Cancer head and neck cancer - smoker Other Diabetes Ulcerative colitis Social History Smoking/Tobacco Use Status: Former Tobacco Use Alcohol Intake: former Drug use: Occasionally Substance use type: marijuana Do you feel safe at home: No Do you feel safe in your relationship?: No Additional Social history: patient feels like he is going to from the abdominal pain.
--- NOTE | 2019-07-30 16:10 | PDOC.CMPRO ---
- If Service Date Differs Date of service: 07/30/19 Time of Service: 16:10 Care Management Progress Note S/O: Jordon expressed concern about his medication prescriptions, stating that he had bee3n contacted by [employer] and was told his insurance would not cover all of his medications. [facility] contacted pharmace. The prescription for folic acid was not covered by Medicaid but with a discount coupon, Jordon' only cost will be $4.45 which he found acceptable. Referral for a consult with Gastroenterology at [facility] was sent by [facility] this morning. Jordon was told by [facility] to expect a call in 2-3 days with an actual appointment day/time. Jordon was also provided with written contact information for Care Managers should he have questions post-discharge. A: Jordon is a 33 year old male admitted to [facility] on 07/24/2019 for a Tylenol overdose and acute colitis. P: Jordon will be discharged home later today. In addition to the mentaL health appointment and services arranged, a GI referral was sent to [facility] coordinated Jordon getting an appointment with Julian Bull, therapist, for Wednesday, July 31, 2019 at 11:00 am. ISA also coordinated referral to [facility] case management to provide Jordon with additional community supports. Transport home will either be provided by Jordon' cousin or [facility] when ready. [facility] continues to follow.
--- NOTE | 2019-07-30 19:08 | PDOC.CMDIS ---
- If Service Date Differs Date of service: 07/30/19 Time of Service: 19:08 LACE Index Scoring Tool - Questions: Length of Stay (in days): 4 - 6 Acuity (Admit via E.D.?): Yes E.D. Visits: 2 - Answers: Total Score: 9 Risk of Readmission: Low Risk Care Management Discharge Reason for Hospitalization: Tylenol toxicity Discharge Plan: Jordon will be discharged home later today. [facility]A coordinated Jordon getting an appointment with Julian Bull, therapist, for Wednesday, July 31, 2019 at 11:00 am. ISA also coordinated referral to [facility] case management to provide Jordon with additional community In addition to the mentaL health appointment and services arranged, a GI referral was sent to [facility] by [facility]. Transport home will be provided by Jordon' cousin. Patient/Family Education Needs: Discharge plan, limitations, follow up plan, Ask Me Three.
== END 2019-07-30 17:10 | disposition home or self-care (01) | DRG 918 ==
LOC: ER 12:35 → ICU 12:50 → MS 07-26 18:37
PROVIDERS: Surgery; Admitting Provider Internal Medicine; Emergency Provider Physician Assistant; PCP Family Medicine; Visit Provider Internal Medicine
PROC: 0DJD8ZZ Inspection of Lower Intestinal Tract, Via Natural or Artificial Opening Endoscopic (ICD-10-PCS; CPT 45330; principal; 2019-07-26 08:00)
DX: T39.1X1A Poisoning by 4-Aminophenol derivatives, accidental (unintentional), initial encounter (principal); K51.20 Ulcerative (chronic) proctitis without complications; K51.90 Ulcerative colitis, unspecified, without complications; R74.0 Nonspecific elevation of levels of transaminase and lactic acid dehydrogenase [LDH]; R79.1 Abnormal coagulation profile; Z83.79 Family history of other diseases of the digestive system; E87.6 Hypokalemia; F60.1 Schizoid personality disorder; F90.9 Attention-deficit hyperactivity disorder, unspecified type; K76.0 Fatty (change of) liver, not elsewhere classified; F43.10 Post-traumatic stress disorder, unspecified; F41.9 Anxiety disorder, unspecified
CPT/HCPCS: 43239; 36415; 80048; 80053; 80076; 80307; 83690; 85652; 86255; 86850; 86900; 86901; 87389; 87505; 88305; 93005; 96361; 96365; 96375; 99221; 99231; 99232; 99233; 99238; 99252; 99285; 99291; NC; 74177; 80329; 82607; 82728; 82746; 83540; 83550; 83735; 84132; 84443; 84450; 84460; 85014; 85018; 85025; 85610; 86140; 86671; 87177; 87324; 93010; J0132; J1720; J1745; J1756; J2060; J2250; J2405; J3430; J3490; J7060; J7512

== ENCOUNTER 2019-08-13 01:16 | Outpatient (RCR) | payer MEDICARE, MEDICAID, SELFPAY ==
[2019-08-13] VITALS (7 sets, daily range): BP systolic 128–137; BP diastolic 86–91; PULSE 86–115; RESP 18–19; TEMP 36.5–37.2; O2SAT 98–100
[2019-08-13 12:38] LABS: Abs Immature Grans 0.22 k/cumm (0.0-0.09); Absolute Basophil Count 0.02 k/cumm (0.0-0.2); Absolute Eosinophil Count 0.03 k/cumm (0.0-0.7); Absolute Lymphocyte Count 1.04 k/cumm (1.2-3.4); Absolute Monocyte Count 0.47 k/cumm (0.11-0.7); Basophils % 0.2; Eosinophils % 0.3; HCT 41.9 % (40.0-50.0); Lymphocytes % 9.3; Mean Corpuscular Hemoglobin 27.4 pg (27.0-33.0); Mean Corpuscular Volume 88.2 fL (80-95); Mean Platelet Volume 9.4 fL (8.0-11.0); Monocytes % 4.2; Platelet Count 238 x1000/uL (130-400); RBC 4.75 m/cumm (4.50-6.00); RBC Distribution Width 21.6 % (11.8-14.1); White Blood Cell Count 11.23 k/cumm (4.4-10.8)
[2019-08-13 12:40] LABS: Absolute Neutrophil Count 9.43 k/cumm (1.2-6.7)
[2019-08-13] MEDS: inFLIXimab 300 MG in Normal Saline 250 ML 125 MG IVPB (13:10)
[2019-08-13] MEDS: Normal Saline Flush 10 ML SYR IVP (13:11)
[2019-08-13 13:20] LABS: C-Reactive Protein < 0.05 mg/dL (0.0-0.3)
[2019-08-13 13:56] LABS: Iron 65 ug/dL (65-175); Total Iron Binding Capacity 427 ug/dL (250-450); Transferrin Sat 15 % (20-55)
== END 2019-08-21 23:59 | disposition home or self-care (01) ==
LOC: INF 01:16
PROVIDERS: PCP Family Medicine; Visit Provider Surgery
DX: K51.20 Ulcerative (chronic) proctitis without complications (principal); K51.90 Ulcerative colitis, unspecified, without complications; D64.9 Anemia, unspecified
CPT/HCPCS: 96365; 96366; 83540; 83550; 85025; 86140; J1745

== ENCOUNTER → 2019-08-24 13:07 | Outpatient (BNVA) | payer MEDICARE, MEDICAID, SELFPAY | PROVIDERS: PCP Family Medicine; Referring Provider Family Medicine; Visit Provider Surgery | DX: K51.911 Ulcerative colitis, unspecified with rectal bleeding | CPT/HCPCS: 99214 ==

== ENCOUNTER 2019-08-25 10:42 | Emergency (ER) | payer MEDICARE, MEDICAID, SELFPAY ==
[2019-08-25 10:53] VITALS: BP 153/96; PULSE 117; RESP 24; TEMP 37.2; O2SAT 99
--- NOTE | 2019-08-25 11:15 | W.ED.GENAD ---
Discharge Plan Disposition Patient Disposition: HOME Discharge Details Chief Complaint: Abd Prob Clinical Impression: Abdominal pain, Myalgia, Vomiting and diarrhea Primary Care Provider: Julian Bishop ED Provider: Edmond Flynn Home Meds and New Rx's Prescriptions: Continued fluticasone propionate 50 mcg/actuation spray,suspension 2 spray ABRAHAM DAILY Qty: 15.8 RF: 4 melatonin 3 mg tablet 3 mg PO HS PRN (Reason: sleep) Qty: 30 RF: 5 prednisone 10 mg tablet See Rx Instructions .Route .COMPLEX Qty: 100 RF: 0 dextroamphetamine-amphetamine 30 mg tablet 30 mg PO BID MDD 60 mg Qty: 60 RF: 0 multivitamin [Daily Multi-Vitamin] Tablet 1 tab PO DAILY RF: 0 tramadol 50 mg tablet 100 mg PO Q6H PRN PRN (Reason: pain) Qty: 20 RF: 0 folic acid 1 mg Tablet 1 mg PO DAILY Qty: 30 RF: 0 Discharge Instructions Instructions: Abdominal Pain (ED) Additional Instructions: Please drink small amounts of fluid often to stay hydrated and avoid vomiting. Please contact your primary care physician to arrange follow-up. Return to the ER for any worsening or new concerning symptoms. Referrals: Julian Bishop MD [Primary Care Provider] - Discharge Data Discharge Date/Time-TO BE ENTERED AT DEPARTURE: 08/25/19 16:05 Medical Decision Making 1118??33-year-old male with history of Crohn's disease, here with diffuse body myalgias, chills, nausea, vomiting, loose stool and abdominal pain over the past 2 days. Exam concerning for tachycardia and right lower quadrant tenderness. Consider acute surgical intra-abdominal process including acute appendicitis versus Crohn's flare versus other. Plan to obtain CT of the abdomen pelvis. Patient appears clinically dehydrated. He did have heavy alcohol consumption last night and is tachycardic currently. We will give IV fluid bolus. Toradol 15 mg IV for discomfort. 15:28 --CT of the abdomen pelvis interpreted by radiology:IMPRESSION: No acute process labs reviewed. Potassium mildly low. Patient is being given potassium 20 mEq IV. Patient was reassessed and feeling much better. Tolerating oral fluids. Plan will be for the patient follow-up with his primary care physician and to return should have any worsening or new concerning symptoms. All results were discussed with the patient. Questions addressed. Patient verbalized understanding of discharge instructions HPI General Mode of arrival: ambulatory. Date/Time Provider Initiated Documentation: 08/25/19 11:08. Limitations to Documentation: no limitations. Information obtained by: patient. HPI Narrative: 33-year-old male with history of Crohn's disease here with chief complaint of generalized body aches. Patient notes he has had worsening body aches over the past 2 days. Symptoms are severe. No modifiers. He also notes associated loose stool this morning and vomiting yesterday. He has diffuse abdominal pain although worse in the right lower abdomen. He has associated chills. Patient does note that he consumed 5 beers last night. He typically drinks this amount on weekends. Related Data Home Medications Medication Instructions Recorded Confirmed fluticasone propionate 50 2 spray ABRAHAM DAILY #15.8 gm 12/26/18 08/25/19 mcg/actuation nasal spray,suspension folic acid 1 mg PO DAILY #30 tab 07/30/19 08/25/19 melatonin 3 mg tablet 3 mg PO HS PRN #30 tab 08/03/19 08/25/19 tramadol 50 mg tablet 100 mg PO Q6H PRN PRN #20 tab 08/06/19 08/25/19 dextroamphetamine-amphetamine 30 30 mg PO BID #60 tab MDD 60 mg 08/23/19 08/25/19 mg tablet prednisone 10 mg tablet See Rx Instructions .ROUTE 08/23/19 08/25/19 .COMPLEX #100 tab multivitamin 1 tab PO DAILY 08/24/19 08/25/19 Previous Rx's Medication Instructions Recorded fluticasone propionate 50 2 spray ABRAHAM DAILY #15.8 gm 12/26/18 mcg/actuation nasal spray,suspension folic acid 1 mg PO DAILY #30 tab 07/30/19 melatonin 3 mg tablet 3 mg PO HS PRN #30 tab 08/03/19 tramadol 50 mg tablet 100 mg PO Q6H PRN PRN #20 tab 08/06/19 dextroamphetamine-amphetamine 30 30 mg PO BID #60 tab MDD 60 mg 08/23/19 mg tablet prednisone 10 mg tablet See Rx Instructions .ROUTE 08/23/19 .COMPLEX #100 tab Allergies Allergy/AdvReac Type Severity Reaction Status Date / Time No Known Allergies Allergy Unverified 08/25/19 10:55 General Stated Complaint: Abd Prob JASEN: 3 Review of Systems All systems reviewed & are unremarkable except as noted in HPI and below Constitutional Constitutional: Reports body ache(s) and Reports chills Respiratory Respiratory: Denies cough Gastrointestinal Gastrointestinal: Reports as per HPI [facility] Medical History (Updated 08/27/19 @ 12:36 by Sofia Esquivel DO) Allergic rhinitis (Chronic) Attention deficit hyperactivity disorder (ADHD), 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 Schizoid personality disorder (Chronic 08/18/15) Shoulder pain, right (Acute 08/18/15) Ulcerative colitis with rectal bleeding (Acute) Surgical History History of dental surgery (Acute) Family History Mother Crohn disease Paternal Grandfather Cancer head and neck cancer - smoker Other Diabetes Ulcerative colitis Social History Smoking/Tobacco Use Status: Former Tobacco Use Alcohol Intake: current Alcohol Intake frequency: 3 or more drinks per day Alcohol type: beer Drug use: Occasionally Substance use type: marijuana Do you feel safe at home: Yes Do you feel safe in your relationship?: Yes Additional Social history: patient feels like he is going to from the abdominal pain. Exam Const General: cooperative and no acute distress HENNC Head: normocephalic Eyes Conjunctivae: normal conjunctivae Sclera: normal sclerae Neck Neck: trachea midline and supple Resp Auscultation: clear to auscultation bilaterally, no rales, no rhonchi and no wheezes Cardio Jugular venous pressure: no JVD Rate: tachycardic Rhythm: regular rhythm Heart Sounds: no gallops, no murmurs and no rubs GI Palpation: soft, not firm, no guarding, no masses, not rigid and tender (Diffuse, worse right lower quadrant) with no rebound tenderness Auscultation: normal bowel sounds Skin General skin exam: no rashes or lesions noted Neuro General: alert, awake, oriented x3 and tone normal Extrem General: no edema Psych Appearance: grossly normal Mental Status: mental status grossly normal Course Vital Signs Vital signs: Vital Signs Temperature 36.6 C 08/25/19 10:53 Pulse 117 H 08/25/19 10:53 Respiratory Rate 24 08/25/19 10:53 Blood Pressure 153/96 H 08/25/19 10:53 Pulse Oximetry 99 08/25/19 10:53 Temperature 36.6 C 08/25/19 10:53 Temperature Source Temporal Artery Scan 08/25/19 10:53 Pulse 117 H 08/25/19 10:53 Respiratory Rate 24 08/25/19 10:53 Respiratory Effort Non-Labored 08/25/19 10:54 Blood Pressure 153/96 H 08/25/19 10:53 Blood Pressure Position Sitting 08/25/19 10:53 Pulse Oximetry 99 08/25/19 10:53 Oxygen Delivery Method Room Air 08/25/19 10:53 Oxygen Flow Rate 0 08/25/19 10:53 Pain Level 8 08/25/19 10:53 Lab/Test Results Lab/Test Results: 08/25/19 11:10 Nasopharynx Influenza Types A,B Antigen - Pending
[2019-08-25] MEDS: Ketorolac 15 MG/ML VIAL IVP (11:19)
[2019-08-25] MEDS: Normal Saline Flush 10 ML SYR IVP (11:19)
[2019-08-25] MEDS: Lactated Ringers 1,000 ML 1000 ML IV (11:19)
[2019-08-25 11:23] LABS: Lactate 1.2 mmol/L (0.6-1.4)
[2019-08-25 11:24] LABS: Abs Immature Grans 0.21 k/cumm (0.0-0.09); Absolute Basophil Count 0.02 k/cumm (0.0-0.2); Absolute Eosinophil Count 0.07 k/cumm (0.0-0.7); Absolute Lymphocyte Count 1.18 k/cumm (1.2-3.4); Absolute Monocyte Count 0.43 k/cumm (0.11-0.7); Absolute Neutrophil Count 6.71 k/cumm (1.2-6.7); Basophils % 0.2; Eosinophils % 0.8; HCT 42.6 % (40.0-50.0); HGB 13.8 g/dL (13.5-17.5); Immature Grans % 2.4 %; Lymphocytes % 13.7; Mean Corp. HGB Concentration 32.4 g/dL (32.0-36.0); Mean Corpuscular Hemoglobin 28.1 pg (27.0-33.0); Mean Corpuscular Volume 86.8 fL (80-95); Mean Platelet Volume 9.4 fL (8.0-11.0); Neutrophils % 77.9; Platelet Count 192 x1000/uL (130-400); RBC 4.91 m/cumm (4.50-6.00); RBC Distribution Width 19.6 % (11.8-14.1); White Blood Cell Count 8.62 k/cumm (4.4-10.8)
[2019-08-25 11:50] LABS: ALT 53 U/L (16-63); AST 16 U/L (15-37); Albumin 3.7 g/dL (3.4-5.0); Alkaline Phosphatase 68 U/L (46-116); Anion Gap 10.3 mmol/L (3-11); BUN 19 mg/dL (7-18); Bilirubin, Total 0.9 mg/dL (0.2-1.0); CO2 29.7 mmol/L (21.0-32.0); CREATININE 0.73 mg/dL (0.70-1.30); Calcium 8.5 mg/dL (8.5-10.1); Chloride 102 mmol/L (98-107); Glucose 114 mg/dL (74-106); Lipase 146 U/L (73-393); Potassium 3.3 mmol/L (3.5-5.1); Sodium 142 mmol/L (136-145); Total Protein 7.2 g/dL (6.4-8.2)
[2019-08-25] MEDS: Omnipaque 350 MG/ML 100 ML BTL IJ (12:15)
--- NOTE | 2019-08-25 12:18 | DI.CT_ITS ---
EXAM: CT ABDOMEN PELVIS W CLINICAL HISTORY: rlq abd pain, h/o crohns TECHNIQUE: Post IV contrast. Without oral contrast. COMPARISON: CT ABDOMEN PELVIS W from 07/24/2019 FINDINGS: The lung bases are clear. The liver, gallbladder, spleen, pancreas and adrenals are unremarkable. The re are a few tiny renal cysts. There is no hydronephrosis. The bladder and prostate are unremarkable. There is a fatty containing left inguinal hernia. The appendix appears normal. The colon is mainly f luid-filled but not abnormally distended. There is no small bowel wall thickening or inflammatory noemi nge. There is no free air or free fluid. IMPRESSION: No acute abnormality.
[2019-08-25 12:27] LABS: Bilirubin Negative (Negative); Blood Negative (Negative); Clarity Clear (Clear); Glucose Negative (Negative); Ketones Negative (Negative); Leukocyte Esterase Negative (Negative); Nitrite Negative (Negative); Urobilinogen 0.2 EU/dL (Up TO 0.2); pH 5.5 (5-8)
--- NOTE | 2019-08-25 12:53 | DI.VRAD_ITS ---
PROCEDURE INFORMATION: Exam: CT Abdomen And Pelvis With Contrast Exam date and time: 08/25/2019 12:18 PM Age: 33 years old Clinical indication: Abdominal pain; Prior surgery TECHNIQUE: Imaging protocol: Computed tomography of the abdomen and pelvis with intravenous contrast. COMPARISON: CT ABDOMEN PELVIS W 07/24/2019 9:44 AM FINDINGS: Liver: Normal. No mass. Gallbladder and bile ducts: Normal. No calcified stones. No ductal dilation. Pancreas: Normal. No ductal dilation. Spleen: Normal. No splenomegaly. Adrenals: Normal. No mass. Kidneys and ureters: Subcentimeter low attenuation areas in both kidneys are too small for characterization. No renal calculus. No ureteral calculus Stomach and bowel: Unremarkable. No obstruction. No mucosal thickening. Appendix: Normal appendix Intraperitoneal space: Unremarkable. No free air. No significant fluid collection. Vasculature: Unremarkable. No abdominal aortic aneurysm. Lymph nodes: Unremarkable. No enlarged lymph nodes. Bladder: Unremarkable as visualized. Reproductive: Unremarkable as visualized. Bones/joints: Unremarkable. No acute fracture. Soft tissues: Bilateral inguinal hernias contain fat IMPRESSION: No acute process Dictated and Authenticated by: Jluis Perez MD. Ordering:MAYKEL Pruitt MD
[2019-08-25] MEDS: POTASSIUM CHLORIDE 20 MEQ/100 ML BAG 50 MEQ IVPB (14:14)
[2019-08-25] MEDS: Normal Saline 1,000 ML 125 ML IV (14:14)
[2019-08-25 15:55] VITALS: BP 116/78; PULSE 97; TEMP 37; O2SAT 99
[2019-08-25 16:05] VITALS: BP 116/78; PULSE 97; RESP 24; TEMP 37; O2SAT 99
== END 2019-08-25 16:05 | disposition home or self-care (01) ==
PROVIDERS: Emergency Provider Student in an Organized Health Care Education/Training Program; PCP Family Medicine
DX: M79.10 Myalgia, unspecified site (principal); R11.2 Nausea with vomiting, unspecified; R19.7 Diarrhea, unspecified; K50.90 Crohn's disease, unspecified, without complications; R10.31 Right lower quadrant pain; E86.0 Dehydration; E87.6 Hypokalemia
CPT/HCPCS: 36415; 80053; 83690; 87449; 96361; 96365; 96366; 96375; 99285; 74177; 81003; 83605; 85025; 99284; J1885; J3480; J3490

== ENCOUNTER 2019-10-16 02:14 | Outpatient (RCR) | payer MEDICARE, MEDICAID, SELFPAY ==
[2019-09-27] VITALS (7 sets, daily range): BP systolic 119–147; BP diastolic 78–102; PULSE 88–119; RESP 16–19; TEMP 36–36.6; O2SAT 94–100
[2019-09-27] MEDS: Normal Saline Flush 10 ML SYR IVP ×2 (11:24→12:00)
[2019-09-27 11:34] LABS: Abs Immature Grans 0.04 k/cumm (0.0-0.09); Absolute Basophil Count 0.01 k/cumm (0.0-0.2); Absolute Lymphocyte Count 2.99 k/cumm (1.2-3.4); Absolute Monocyte Count 0.65 k/cumm (0.11-0.7); Absolute Neutrophil Count 3.53 k/cumm (1.2-6.7); Basophils % 0.1; Eosinophils % 1.4; HCT 44.5 % (40.0-50.0); HGB 14.6 g/dL (13.5-17.5); Immature Grans % 0.5 %; Lymphocytes % 40.8; Mean Corp. HGB Concentration 32.8 g/dL (32.0-36.0); Mean Corpuscular Hemoglobin 27.8 pg (27.0-33.0); Mean Corpuscular Volume 84.8 fL (80-95); Mean Platelet Volume 10.1 fL (8.0-11.0); Monocytes % 8.9; Neutrophils % 48.3; Platelet Count 219 x1000/uL (130-400); RBC 5.25 m/cumm (4.50-6.00); RBC Distribution Width 16.6 % (11.8-14.1); White Blood Cell Count 7.32 k/cumm (4.4-10.8)
[2019-09-27 11:48] LABS: ALT 49 U/L (16-63); AST 20 U/L (15-37); Albumin 3.9 g/dL (3.4-5.0); Alkaline Phosphatase 82 U/L (46-116); Anion Gap 9.8 mmol/L (3-11); BUN 14 mg/dL (7-18); Bilirubin, Total 0.5 mg/dL (0.2-1.0); C-Reactive Protein 0.58 mg/dL (0.0-0.3); CO2 28.2 mmol/L (21.0-32.0); Calcium 9.2 mg/dL (8.5-10.1); Chloride 104 mmol/L (98-107); Glucose 74 mg/dL (74-106); Potassium 3.7 mmol/L (3.5-5.1); Sodium 142 mmol/L (136-145); Total Protein 7.7 g/dL (6.4-8.2)
[2019-09-27 12:08] LABS: Iron 49 ug/dL (65-175); Total Iron Binding Capacity 399 ug/dL (250-450); Transferrin Sat 12 % (20-55)
[2019-09-27 12:17] LABS: Ferritin 29 ng/mL (26-388)
[2019-10-16] MEDS: Normal Saline Flush 10 ML SYR IVP (12:17)
[2019-10-16] MEDS: IRON SUCROSE COMPLEX 200 MG in Normal Saline 100 ML 440 MG IVPB (12:17)
== END 2019-10-20 23:59 | disposition home or self-care (01) ==
LOC: INF 02:14
PROVIDERS: PCP Family Medicine; Visit Provider Surgery
DX: K51.20 Ulcerative (chronic) proctitis without complications (principal); K51.90 Ulcerative colitis, unspecified, without complications; D64.9 Anemia, unspecified
CPT/HCPCS: 36415; 80053; 96365; 96366; 96413; 96415; 82728; 83540; 83550; 85025; 86140; J1745; J1756

== ENCOUNTER 2019-11-08 02:06 | Outpatient (RCR) | payer MEDICARE, MEDICAID, SELFPAY ==
[2019-11-08] VITALS (7 sets, daily range): BP systolic 123–138; BP diastolic 81–91; PULSE 78–131; RESP 16–19; TEMP 36.1–36.8; O2SAT 94–100
[2019-11-08 11:29] LABS: Abs Immature Grans 0.02 k/cumm (0.0-0.09); Absolute Basophil Count 0.01 k/cumm (0.0-0.2); Absolute Eosinophil Count 0.14 k/cumm (0.0-0.7); Absolute Lymphocyte Count 2.76 k/cumm (1.2-3.4); Absolute Monocyte Count 0.67 k/cumm (0.11-0.7); Absolute Neutrophil Count 3.18 k/cumm (1.2-6.7); Basophils % 0.1; Eosinophils % 2.1; HGB 15.8 g/dL (13.5-17.5); Immature Grans % 0.3 %; Lymphocytes % 40.7; Mean Corp. HGB Concentration 33.6 g/dL (32.0-36.0); Mean Corpuscular Hemoglobin 28.2 pg (27.0-33.0); Mean Corpuscular Volume 83.8 fL (80-95); Mean Platelet Volume 10.2 fL (8.0-11.0); Monocytes % 9.9; Neutrophils % 46.9; Platelet Count 253 x1000/uL (130-400); RBC 5.61 m/cumm (4.50-6.00); RBC Distribution Width 14.3 % (11.8-14.1); White Blood Cell Count 6.78 k/cumm (4.4-10.8)
[2019-11-08 11:43] LABS: ALT 33 U/L (16-63); AST 13 U/L (15-37); Albumin 4.3 g/dL (3.4-5.0); Alkaline Phosphatase 99 U/L (46-116); Anion Gap 8.1 mmol/L (3-11); BUN 13 mg/dL (7-18); Bilirubin, Total 0.5 mg/dL (0.2-1.0); C-Reactive Protein 0.08 mg/dL (0.0-0.3); CO2 27.9 mmol/L (21.0-32.0); CREATININE 0.98 mg/dL (0.70-1.30); Calcium 9.2 mg/dL (8.5-10.1); Chloride 102 mmol/L (98-107); Glucose 93 mg/dL (74-106); Potassium 3.9 mmol/L (3.5-5.1); Sodium 138 mmol/L (136-145); Total Protein 8.3 g/dL (6.4-8.2)
[2019-11-08] MEDS: Normal Saline Flush 10 ML SYR IVP (11:46)
== END 2019-11-20 23:59 | disposition home or self-care (01) ==
LOC: INF 02:06
PROVIDERS: PCP Family Medicine; Visit Provider Surgery
DX: K51.20 Ulcerative (chronic) proctitis without complications (principal); K51.90 Ulcerative colitis, unspecified, without complications; D64.9 Anemia, unspecified
CPT/HCPCS: 36415; 80053; 96365; 96366; 96413; 96415; 85025; 86140; J1745

== ENCOUNTER 2020-01-03 01:35 | Outpatient (RCR) | payer MEDICARE, MEDICAID, SELFPAY ==
[2020-01-03 11:39] LABS: Abs Immature Grans 0.04 k/cumm (0.0-0.09); Absolute Basophil Count 0.02 k/cumm (0.0-0.2); Absolute Eosinophil Count 0.09 k/cumm (0.0-0.7); Absolute Lymphocyte Count 2.81 k/cumm (1.2-3.4); Absolute Monocyte Count 0.59 k/cumm (0.11-0.7); Absolute Neutrophil Count 3.33 k/cumm (1.2-6.7); Basophils % 0.3; Eosinophils % 1.3; HCT 45.3 % (40.0-50.0); HGB 15.4 g/dL (13.5-17.5); Immature Grans % 0.6 %; Lymphocytes % 40.8; Mean Corpuscular Hemoglobin 28.1 pg (27.0-33.0); Mean Corpuscular Volume 82.5 fL (80-95); Mean Platelet Volume 10.3 fL (8.0-11.0); Monocytes % 8.6; Neutrophils % 48.4; Platelet Count 212 x1000/uL (130-400); RBC 5.49 m/cumm (4.50-6.00); RBC Distribution Width 14.7 % (11.8-14.1); White Blood Cell Count 6.88 k/cumm (4.4-10.8)
[2020-01-03 11:44] VITALS: BP 126/73; PULSE 88; RESP 19; TEMP 36.3; O2SAT 93
[2020-01-03 11:53] LABS: BUN 8 mg/dL (7-18); CREATININE 0.89 mg/dL (0.70-1.30); Calcium 8.9 mg/dL (8.5-10.1); Glucose 101 mg/dL (74-106)
[2020-01-03 11:54] LABS: ALT 44 U/L (16-63); AST 21 U/L (15-37); Alkaline Phosphatase 82 U/L (46-116); Anion Gap 8.1 mmol/L (3-11); Bilirubin, Total 0.5 mg/dL (0.2-1.0); C-Reactive Protein 0.09 mg/dL (0.0-0.3); CO2 27.9 mmol/L (21.0-32.0); Chloride 102 mmol/L (98-107); Potassium 3.5 mmol/L (3.5-5.1); Sodium 138 mmol/L (136-145); Total Protein 7.8 g/dL (6.4-8.2)
[2020-01-03] MEDS: Normal Saline Flush 10 ML SYR IVP (11:58)
[2020-01-03 12:01] VITALS: BP 126/71; PULSE 87; RESP 18; TEMP 36.1; O2SAT 92
[2020-01-03 12:16] VITALS: BP 114/75; PULSE 86; RESP 19; TEMP 36.2; O2SAT 92
[2020-01-03 12:36] VITALS: BP 136/76; PULSE 88; RESP 18; TEMP 36; O2SAT 93
[2020-01-03 12:46] VITALS: BP 124/70; PULSE 88; RESP 19; TEMP 36.1; O2SAT 93
[2020-01-03 13:16] VITALS: BP 113/70; PULSE 89; RESP 18; TEMP 36.1; O2SAT 96
== END 2020-01-19 01:35 | disposition home or self-care (01) ==
LOC: INF 01:35
PROVIDERS: PCP Family Medicine; Visit Provider Surgery
DX: K50.90 Crohn's disease, unspecified, without complications (principal)
CPT/HCPCS: 80053; 96365; 96366; 96413; 96415; 85025; 86140; J1745

== ENCOUNTER 2020-02-29 12:20 | Outpatient (RCR) | payer MEDICARE, MEDICAID, SELFPAY ==
[2020-02-29 12:10] VITALS: BP 129/89; PULSE 86; RESP 19; TEMP 36.2; O2SAT 97
[2020-02-29 12:40] LABS: Abs Immature Grans 0.01 k/cumm (0.0-0.09); Absolute Basophil Count 0.02 k/cumm (0.0-0.2); Absolute Eosinophil Count 0.07 k/cumm (0.0-0.7); Absolute Lymphocyte Count 2.66 k/cumm (1.2-3.4); Absolute Neutrophil Count 3.26 k/cumm (1.2-6.7); Basophils % 0.3; Eosinophils % 1.1; HCT 45.1 % (40.0-50.0); HGB 15.5 g/dL (13.5-17.5); Immature Grans % 0.2 %; Lymphocytes % 40.8; Mean Corp. HGB Concentration 34.4 g/dL (32.0-36.0); Mean Corpuscular Hemoglobin 29.1 pg (27.0-33.0); Mean Corpuscular Volume 84.8 fL (80-95); Monocytes % 7.7; Neutrophils % 49.9; Platelet Count 195 x1000/uL (130-400); RBC 5.32 m/cumm (4.50-6.00); RBC Distribution Width 14.3 % (11.8-14.1); White Blood Cell Count 6.52 k/cumm (4.4-10.8)
[2020-02-29 12:43] VITALS: BP 122/80; PULSE 83; RESP 18; TEMP 36; O2SAT 96
[2020-02-29] MEDS: Normal Saline Flush 10 ML SYR IVP (12:44)
[2020-02-29 12:51] LABS: ALT 57 U/L (16-63); AST 25 U/L (15-37); Albumin 4.2 g/dL (3.4-5.0); Alkaline Phosphatase 85 U/L (46-116); Anion Gap 8.6 mmol/L (3-11); BUN 12 mg/dL (7-18); Bilirubin, Total 0.8 mg/dL (0.2-1.0); C-Reactive Protein 0.11 mg/dL (0.0-0.3); CO2 28.4 mmol/L (21.0-32.0); CREATININE 1.14 mg/dL (0.70-1.30); Chloride 102 mmol/L (98-107); Glucose 116 mg/dL (74-106); Potassium 3.5 mmol/L (3.5-5.1); Sodium 139 mmol/L (136-145); Total Protein 7.9 g/dL (6.4-8.2)
[2020-02-29 12:58] VITALS: BP 121/82; PULSE 81; RESP 18; TEMP 36.1; O2SAT 97
[2020-02-29 13:13] VITALS: BP 125/85; PULSE 69; RESP 18; TEMP 36; O2SAT 98
== END 2020-03-21 23:59 | disposition home or self-care (01) ==
LOC: INF 12:20
PROVIDERS: PCP Family Medicine; Visit Provider Surgery
DX: K51.911 Ulcerative colitis, unspecified with rectal bleeding (principal)
CPT/HCPCS: 36415; 80053; 96365; 96366; 96413; 96415; 85025; 86140; J1745

== ENCOUNTER 2020-04-22 01:24 | Outpatient (RCR) | payer MEDICARE, MEDICAID, SELFPAY ==
[2020-04-22] VITALS (7 sets, daily range): BP systolic 121–138; BP diastolic 75–89; PULSE 90–105; RESP 18–19; TEMP 36.2–36.6; O2SAT 95–99
[2020-04-22 12:57] LABS: Abs Immature Grans 0.04 10^3/uL (0.0-0.06); Absolute Basophil Count 0.02 10^3/uL (0.0-0.2); Absolute Eosinophil Count 0.12 10^3/uL (0.0-0.7); Absolute Lymphocyte Count 2.47 10^3/uL (1.2-3.4); Absolute Monocyte Count 0.59 10^3/uL (0.1-0.8); Absolute Neutrophil Count 3.62 10^3/uL (1.2-6.7); Basophils % 0.3; Eosinophils % 1.7; HCT 45.4 % (40.0-50.0); HGB 15.3 g/dL (13.5-17.5); Immature Grans % 0.6; MCH 29.4 pg (27.0-33.0); MCHC 33.7 % (32.0-36.0); MCV 87.1 fL (80-95); MPV 10.3 fL (8.0-11.0); Monocytes % 8.6; Neutrophils % 52.8; Nucleated RBC 0 %; Platelet Count 196 10^3/uL (130-400); RBC 5.21 10^6/uL (4.36-5.78); RDW 13.1 % (11.8-14.1); RDW-SD 41.4 fL; WBC 6.86 10^3/uL (4.4-10.8)
[2020-04-22 13:12] LABS: ALT 49 U/L (16-63); AST 14 U/L (15-37); Albumin 4.2 g/dL (3.4-5.0); Alkaline Phosphatase 83 U/L (46-116); Anion Gap 9.1 mmol/L (3-11); BUN 16 mg/dL (7-18); Bilirubin, Total 0.5 mg/dL (0.2-1.0); C-Reactive Protein 0.45 mg/dL (0.0-0.3); CO2 26.9 mmol/L (21.0-32.0); CREATININE 1.06 mg/dL (0.70-1.30); Calcium 9.2 mg/dL (8.5-10.1); Chloride 101 mmol/L (98-107); Glucose 105 mg/dL (74-106); Potassium 3.7 mmol/L (3.5-5.1); Sodium 137 mmol/L (136-145)
[2020-04-22] MEDS: Normal Saline Flush 10 ML SYR IVP (13:23)
== END 2020-05-21 23:59 | disposition home or self-care (01) ==
LOC: INF 01:24
PROVIDERS: PCP Family Medicine; Visit Provider Surgery
DX: K51.911 Ulcerative colitis, unspecified with rectal bleeding (principal)
CPT/HCPCS: 36415; 80053; 96365; 96366; 96413; 96415; 85025; 86140

== ENCOUNTER 2020-06-17 12:30 | Outpatient (RCR) | payer MEDICARE, MEDICAID, SELFPAY ==
[2020-06-17 12:54] VITALS: BP 137/92; PULSE 135; RESP 19; TEMP 36; O2SAT 96
[2020-06-17 13:08] LABS: Abs Immature Grans 0.02 10^3/uL (0.0-0.06); Absolute Basophil Count 0.04 10^3/uL (0.0-0.2); Absolute Eosinophil Count 0.09 10^3/uL (0.0-0.7); Absolute Lymphocyte Count 2.34 10^3/uL (1.2-3.4); Absolute Monocyte Count 0.58 10^3/uL (0.1-0.8); Absolute Neutrophil Count 3.84 10^3/uL (1.2-6.7); Basophils % 0.6; Eosinophils % 1.3; HCT 45.7 % (40.0-50.0); HGB 15.6 g/dL (13.5-17.5); Immature Grans % 0.3; Lymphocytes % 33.9; MCH 29.4 pg (27.0-33.0); MCHC 34.1 % (32.0-36.0); MCV 86.1 fL (80-95); MPV 10.6 fL (8.0-11.0); Monocytes % 8.4; Neutrophils % 55.5; Nucleated RBC 0 %; Platelet Count 195 10^3/uL (130-400); RBC 5.31 10^6/uL (4.36-5.78); RDW 13.2 % (11.8-14.1); RDW-SD 41.3 fL; WBC 6.91 10^3/uL (4.4-10.8)
[2020-06-17 13:18] VITALS: BP 142/102; PULSE 128; RESP 19; TEMP 36.6; O2SAT 99
[2020-06-17 13:18] LABS: ALT 60 U/L (16-63); AST 25 U/L (15-37); Albumin 4.2 g/dL (3.4-5.0); Alkaline Phosphatase 90 U/L (46-116); Anion Gap 9.9 mmol/L (3-11); BUN 14 mg/dL (7-18); Bilirubin, Total 0.6 mg/dL (0.2-1.0); C-Reactive Protein 0.22 mg/dL (0.0-0.3); CO2 25.1 mmol/L (21.0-32.0); Calcium 9.1 mg/dL (8.5-10.1); Chloride 102 mmol/L (98-107); Glucose 95 mg/dL (74-106); Sodium 137 mmol/L (136-145)
[2020-06-17] MEDS: Normal Saline Flush 10 ML SYR IVP (13:19)
[2020-06-17 13:48] VITALS: BP 141/104; PULSE 138; RESP 18; TEMP 36.6; O2SAT 99
[2020-06-17 14:03] VITALS: BP 137/96; PULSE 131; RESP 18; TEMP 36.6; O2SAT 98
[2020-06-17 14:18] VITALS: BP 133/99; PULSE 132; RESP 19; TEMP 36.6; O2SAT 98
[2020-06-17 14:48] VITALS: BP 151/90; PULSE 125; RESP 18; TEMP 36; O2SAT 99
== END 2020-06-21 23:59 | disposition home or self-care (01) ==
LOC: INF 12:30
PROVIDERS: PCP Nurse Practitioner; Visit Provider Surgery
DX: K51.911 Ulcerative colitis, unspecified with rectal bleeding (principal)
CPT/HCPCS: 36415; 80053; 96365; 96366; 96413; 96415; 85025; 86140

== ENCOUNTER → 2020-07-02 13:59 | Outpatient (BNVA) | payer MEDICARE, MEDICAID, SELFPAY | PROVIDERS: PCP Nurse Practitioner; Referring Provider Nurse Practitioner; Visit Provider Surgery | DX: K51.911 Ulcerative colitis, unspecified with rectal bleeding (principal) | CPT/HCPCS: 99213 ==

== ENCOUNTER 2020-08-12 01:36 | Outpatient (RCR) | payer MEDICARE, MEDICAID, SELFPAY ==
[2020-08-12 12:31] VITALS: BP 136/92; PULSE 134; RESP 18; TEMP 37; O2SAT 99
[2020-08-12] MEDS: Normal Saline Flush 10 ML SYR IVP ×2 (12:50→13:21)
[2020-08-12 13:01] LABS: Abs Immature Grans 0.04 10^3/uL (0.0-0.06); Absolute Basophil Count 0.03 10^3/uL (0.0-0.2); Absolute Eosinophil Count 0.04 10^3/uL (0.0-0.7); Absolute Lymphocyte Count 1.61 10^3/uL (1.2-3.4); Absolute Monocyte Count 0.45 10^3/uL (0.1-0.8); Basophils % 0.6; Eosinophils % 0.7; HCT 45.3 % (40.0-50.0); HGB 15.3 g/dL (13.5-17.5); Immature Grans % 0.7; MCH 29.2 pg (27.0-33.0); MCHC 33.8 % (32.0-36.0); MCV 86.5 fL (80-95); MPV 10.7 fL (8.0-11.0); Monocytes % 8.4; Neutrophils % 59.6; Nucleated RBC 0 %; Platelet Count 153 10^3/uL (130-400); RBC 5.24 10^6/uL (4.36-5.78); RDW 13.6 % (11.8-14.1); RDW-SD 43.1 fL; WBC 5.37 10^3/uL (4.4-10.8)
[2020-08-12 13:14] LABS: ALT 87 U/L (16-63); AST 35 U/L (15-37); Albumin 4.3 g/dL (3.4-5.0); Alkaline Phosphatase 84 U/L (46-116); BUN 12 mg/dL (7-18); Bilirubin, Total 0.7 mg/dL (0.2-1.0); CREATININE 1.02 mg/dL (0.70-1.30); Calcium 8.9 mg/dL (8.5-10.1); Chloride 101 mmol/L (98-107); Glucose 98 mg/dL (74-106); Potassium 3.6 mmol/L (3.5-5.1); Sodium 138 mmol/L (136-145); Total Protein 7.9 g/dL (6.4-8.2)
[2020-08-12 13:48] VITALS: BP 127/92; PULSE 127; RESP 20; TEMP 37.1; O2SAT 99
[2020-08-12 14:05] VITALS: BP 138/81; PULSE 129; RESP 20; TEMP 37.1; O2SAT 99
[2020-08-12 14:20] VITALS: BP 132/92; PULSE 96; RESP 20; TEMP 37; O2SAT 100
[2020-08-12 14:50] VITALS: BP 132/82; PULSE 139; RESP 20; TEMP 37; O2SAT 98
== END 2020-08-21 23:59 | disposition home or self-care (01) ==
LOC: INF 01:36
PROVIDERS: PCP Nurse Practitioner; Visit Provider Surgery
DX: K50.90 Crohn's disease, unspecified, without complications (principal); K51.911 Ulcerative colitis, unspecified with rectal bleeding
CPT/HCPCS: 36415; 80053; 96365; 96366; 96413; 96415; 85025; 86140

== ENCOUNTER 2020-10-15 02:09 | Outpatient (RCR) | payer MEDICARE, MEDICAID, SELFPAY ==
[2020-08-22 00:13] VITALS: BP 132/82; PULSE 139; RESP 20; TEMP 37
[2020-10-15 12:44] VITALS: BP 121/80; PULSE 111; RESP 19; TEMP 37.6; O2SAT 96
[2020-10-15 13:01] LABS: Abs Immature Grans 0.03 10^3/uL (0.0-0.06); Absolute Basophil Count 0.04 10^3/uL (0.0-0.2); Absolute Eosinophil Count 0.11 10^3/uL (0.0-0.7); Absolute Lymphocyte Count 2.45 10^3/uL (1.2-3.4); Absolute Monocyte Count 0.51 10^3/uL (0.1-0.8); Absolute Neutrophil Count 2.99 10^3/uL (1.2-6.7); Basophils % 0.7; Eosinophils % 1.8; HCT 45.5 % (40.0-50.0); HGB 15.3 g/dL (13.5-17.5); Immature Grans % 0.5; MCH 29.8 pg (27.0-33.0); MCHC 33.6 % (32.0-36.0); MCV 88.5 fL (80-95); MPV 10.7 fL (8.0-11.0); Monocytes % 8.3; Neutrophils % 48.7; Nucleated RBC 0 %; Platelet Count 189 10^3/uL (130-400); RBC 5.14 10^6/uL (4.36-5.78); RDW 13.3 % (11.8-14.1); RDW-SD 43.4 fL; WBC 6.13 10^3/uL (4.4-10.8)
[2020-10-15] MEDS: Normal Saline Flush 10 ML SYR IVP (13:08)
[2020-10-15 13:12] VITALS: BP 128/86; PULSE 114; RESP 19; TEMP 37.6; O2SAT 96
[2020-10-15 13:14] LABS: Albumin 3.9 g/dL (3.4-5.0); Alkaline Phosphatase 80 U/L (46-116); Anion Gap 9.4 mmol/L (3-11); BUN 11 mg/dL (7-18); Bilirubin, Total 0.6 mg/dL (0.2-1.0); C-Reactive Protein 0.16 mg/dL (0.0-0.3); CO2 25.6 mmol/L (21.0-32.0); Calcium 8.6 mg/dL (8.5-10.1); Chloride 102 mmol/L (98-107); Glucose 99 mg/dL (74-106); Potassium 3.6 mmol/L (3.5-5.1); Sodium 137 mmol/L (136-145); Total Protein 7.8 g/dL (6.4-8.2)
[2020-10-15 13:37] LABS: Cholesterol 333 mg/dL (<200); HDL Cholesterol 34 mg/dL (40-60); Triglyceride 782 mg/dL (<150)
[2020-10-15 13:42] VITALS: BP 124/87; PULSE 123; RESP 18; TEMP 37; O2SAT 97
[2020-10-15 13:56] LABS: LDL CHOLESTEROL 213 mg/dL (<100)
[2020-10-15 14:04] LABS: Hemoglobin A1C 5.7 % (<5.7)
[2020-10-15 14:15] VITALS: BP 132/85; PULSE 121; RESP 16; TEMP 36.6; O2SAT 98
[2020-10-15 14:19] LABS: AST 30 U/L (15-37)
[2020-10-15 14:42] VITALS: BP 132/87; PULSE 139; RESP 16; TEMP 36.6; O2SAT 97
[2020-10-15 14:44] LABS: ALT 57 U/L (16-63)
[2020-10-15 15:15] VITALS: BP 129/78; PULSE 109; RESP 18; TEMP 36.9; O2SAT 99
== END 2020-10-19 23:59 | disposition home or self-care (01) ==
LOC: INF 02:09
PROVIDERS: PCP Nurse Practitioner; Visit Provider Surgery
DX: E78.5 Hyperlipidemia, unspecified (principal); R73.03 Prediabetes; K50.90 Crohn's disease, unspecified, without complications
CPT/HCPCS: 36415; 80053; 80061; 83721; 96365; 96366; 83036; 85025; 86140; J1745

== ENCOUNTER 2021-03-12 02:54 | Outpatient (RCR) | payer MEDICARE, MEDICAID, SELFPAY ==
[2021-02-26] VITALS (7 sets, daily range): BP systolic 106–133; BP diastolic 68–89; PULSE 42–101; RESP 16–18; TEMP 36.5–36.7; O2SAT 97–100
[2021-02-26] MEDS: diphenhydrAMINE 25 MG CAP PO (11:59)
[2021-02-26] MEDS: Acetaminophen 325 MG TAB 650 MG PO (12:00)
[2021-02-26] MEDS: Normal Saline Flush 10 ML SYR IVP (12:01)
[2021-03-12] MEDS: diphenhydrAMINE 25 MG CAP PO (12:11)
[2021-03-12] MEDS: Acetaminophen 325 MG TAB 650 MG PO (12:11)
[2021-03-12] MEDS: Normal Saline Flush 10 ML SYR IVP (12:12)
[2021-03-12 12:14] VITALS: BP 123/86; PULSE 59; RESP 16; TEMP 36.5; O2SAT 96
[2021-03-12 13:09] VITALS: BP 124/83; PULSE 60; RESP 16; TEMP 36.9; O2SAT 100
[2021-03-12 13:25] VITALS: BP 116/81; PULSE 64; RESP 16; TEMP 36.8; O2SAT 99
[2021-03-12 13:40] VITALS: BP 126/80; PULSE 61; RESP 16; TEMP 37; O2SAT 99
[2021-03-12 14:10] VITALS: BP 118/71; PULSE 54; RESP 16; TEMP 37.1; O2SAT 99
[2021-03-12 14:40] VITALS: BP 124/82; PULSE 77; RESP 16; TEMP 36.8; O2SAT 100
[2021-03-17 00:49] LABS: Infliximab 83 mcg/mL
== END 2021-03-21 23:59 | disposition home or self-care (01) ==
LOC: INF 02:54
PROVIDERS: Internal Medicine Gastroenterology; PCP Nurse Practitioner Family; Visit Provider Family Medicine
DX: K50.90 Crohn's disease, unspecified, without complications (principal)
CPT/HCPCS: 36415; 82397; 96365; 96366; 96413; 96415; J1745

== ENCOUNTER 2021-04-09 02:24 | Outpatient (RCR) | payer MEDICARE, MEDICAID, SELFPAY ==
[2021-03-22 00:14] VITALS: BP 124/82; PULSE 77; RESP 16; TEMP 36.8
[2021-04-09] MEDS: Normal Saline Flush 10 ML SYR IVP (12:08)
[2021-04-09 12:45] VITALS: BP 125/79; PULSE 121; RESP 16; TEMP 36.8; O2SAT 96
[2021-04-09 13:15] VITALS: BP 125/84; PULSE 112; RESP 16; TEMP 37; O2SAT 97
[2021-04-09 13:36] VITALS: BP 135/78; PULSE 110; RESP 16; TEMP 36.9; O2SAT 96
[2021-04-09 13:56] VITALS: BP 116/73; PULSE 111; RESP 17; TEMP 36.7; O2SAT 98
[2021-04-09 14:26] VITALS: BP 129/84; PULSE 109; RESP 16; TEMP 36.6; O2SAT 100
== END 2021-04-21 23:59 | disposition home or self-care (01) ==
LOC: INF 02:24
PROVIDERS: PCP Nurse Practitioner Family; Visit Provider Family Medicine
DX: K50.90 Crohn's disease, unspecified, without complications (principal)
CPT/HCPCS: 36415; 96413; 96415; J1745

== ENCOUNTER 2021-04-23 12:00 | Outpatient (RCR) | payer MEDICARE, MEDICAID, SELFPAY ==
[2021-04-22 00:07] VITALS: BP 129/84; PULSE 109; RESP 16; TEMP 36.6
[2021-04-23 12:25] LABS: HCT 49.1 % (40.0-50.0); HGB 15.7 g/dL (13.5-17.5); MCH 27.8 pg (27.0-33.0); MCV 86.9 fL (80-95); MPV 10.4 fL (8.0-11.0); Platelet Count 211 10^3/uL (130-400); RBC 5.65 10^6/uL (4.36-5.78); RDW-SD 41.3 fL; WBC 6.33 10^3/uL (4.4-10.8)
[2021-04-23 12:39] LABS: ALT 49 U/L (16-63); AST 24 U/L (15-37); Albumin 4.4 g/dL (3.4-5.0); Alkaline Phosphatase 86 U/L (46-116); Bilirubin, Direct 0.1 mg/dL (0.0-0.2); Bilirubin, Total 0.7 mg/dL (0.2-1.0); Total Protein 8.5 g/dL (6.4-8.2)
[2021-04-23 12:42] LABS: C-Reactive Protein < 0.05 mg/dL (0.0-0.3)
[2021-04-23] MEDS: Normal Saline Flush 10 ML SYR IVP (12:48)
[2021-04-23 12:50] VITALS: BP 137/91; PULSE 96; RESP 16; TEMP 37.3; O2SAT 98
[2021-04-23 13:03] VITALS: BP 143/94; PULSE 105; RESP 16; TEMP 36.8; O2SAT 100
[2021-04-23 13:19] VITALS: BP 139/98; PULSE 111; RESP 16; TEMP 36.7; O2SAT 97
[2021-04-23 13:23] VITALS: BP 133/95; PULSE 114; RESP 16; TEMP 36; O2SAT 96
[2021-04-23 13:54] VITALS: BP 130/88; PULSE 102; RESP 16; TEMP 36.6; O2SAT 95
[2021-04-23 14:25] VITALS: BP 131/91; PULSE 108; RESP 16; TEMP 36.1; O2SAT 99
== END 2021-05-21 23:59 | disposition home or self-care (01) ==
LOC: INF 12:00
PROVIDERS: PCP Nurse Practitioner Family; Visit Provider Family Medicine
DX: K50.90 Crohn's disease, unspecified, without complications (principal)
CPT/HCPCS: 36415; 80076; 85027; 96365; 96366; 96413; 96415; 86140; J1745

== ENCOUNTER 2021-05-13 00:11 | Outpatient (CLI) | payer MEDICARE, MEDICAID, SELFPAY ==
[2021-05-13 12:57] LABS: Calculated LDL 201 mg/dL (<100); Cholesterol 318 mg/dL (<200); HDL Cholesterol 42 mg/dL (40-60); Triglyceride 377 mg/dL (<150)
== END 2021-05-13 00:12 | disposition home or self-care (01) ==
PROVIDERS: PCP Nurse Practitioner Family; Visit Provider Nurse Practitioner Family
DX: I10 Essential (primary) hypertension (principal)
CPT/HCPCS: 36415; 80061; 83036

== ENCOUNTER 2021-06-18 12:00 | Outpatient (RCR) | payer MEDICARE, MEDICAID, SELFPAY ==
[2021-05-22 00:05] VITALS: BP 131/91; PULSE 108; RESP 16; TEMP 36.1
[2021-06-18] VITALS (7 sets, daily range): BP systolic 134–142; BP diastolic 76–99; PULSE 69–124; RESP 17–19; TEMP 35.6–36.6; O2SAT 97–100
[2021-06-18] MEDS: Normal Saline Flush 10 ML SYR IVP (12:16)
[2021-06-18 13:11] LABS: Vitamin D 25 Total 5.9 ng/mL (30-100)
[2021-06-22 09:55] LABS: Infliximab 53 mcg/mL
== END 2021-06-21 23:59 | disposition home or self-care (01) ==
LOC: INF 12:00
PROVIDERS: Internal Medicine Gastroenterology; PCP Nurse Practitioner Family; Visit Provider Family Medicine
DX: K50.111 Crohn's disease of large intestine with rectal bleeding (principal)
CPT/HCPCS: 36415; 82306; 82397; 96365; 96366; 96413; 96415; J1745

== ENCOUNTER 2021-08-11 10:36 | Outpatient (RCR) | payer MEDICARE, MEDICAID, SELFPAY ==
[2021-06-22 00:06] VITALS: BP 137/99; PULSE 95; RESP 18; TEMP 36.6
[2021-08-11 13:07] VITALS: BP 136/91; PULSE 84; RESP 17; TEMP 37.1; O2SAT 98
[2021-08-11] MEDS: Normal Saline Flush 10 ML SYR IVP (13:30)
[2021-08-11 13:49] VITALS: BP 126/83; PULSE 89; RESP 17; TEMP 37.1; O2SAT 100
[2021-08-11 14:05] VITALS: BP 143/92; PULSE 94; RESP 18; TEMP 37; O2SAT 99
[2021-08-11 14:23] VITALS: BP 136/90; PULSE 95; RESP 17; TEMP 36.8; O2SAT 100
[2021-08-11 14:50] VITALS: BP 135/96; PULSE 68; RESP 18; TEMP 36.8; O2SAT 100
[2021-08-11 15:08] VITALS: BP 139/90; PULSE 90; RESP 17; TEMP 36.9; O2SAT 100
== END 2021-08-21 23:59 | disposition home or self-care (01) ==
LOC: INF 10:36
PROVIDERS: PCP Nurse Practitioner Family; Visit Provider Family Medicine
DX: K50.90 Crohn's disease, unspecified, without complications (principal)
CPT/HCPCS: 96365; 96366; 96413; 96415; J1745

== ENCOUNTER 2021-10-08 01:26 | Outpatient (RCR) | payer MEDICARE, MEDICAID, SELFPAY ==
[2021-08-22 00:01] VITALS: BP 139/90; PULSE 90; RESP 17; TEMP 36.9
[2021-10-08 12:30] VITALS: BP 142/90; PULSE 92; RESP 16; TEMP 36.8; O2SAT 100
[2021-10-08] MEDS: Normal Saline Flush 10 ML SYR IVP (12:53)
[2021-10-08 13:04] LABS: HCT 45.5 % (40.0-50.0); HGB 14.7 g/dL (13.5-17.5); MCH 27.8 pg (27.0-33.0); MCHC 32.3 % (32.0-36.0); MCV 86.2 fL (80-95); MPV 11.1 fL (8.0-11.0); Platelet Count 194 10^3/uL (130-400); RBC 5.28 10^6/uL (4.36-5.78); RDW 13.6 % (11.8-14.1); RDW-SD 43.3 fL; WBC 7.67 10^3/uL (4.4-10.8)
[2021-10-08 13:10] VITALS: BP 142/93; PULSE 96; RESP 16; TEMP 36.7; O2SAT 100
[2021-10-08 13:16] LABS: ALT 50 U/L (16-63); AST 26 U/L (15-37); Albumin 4.1 g/dL (3.4-5.0); Alkaline Phosphatase 83 U/L (46-116); Bilirubin, Direct 0.1 mg/dL (0.0-0.2); Bilirubin, Total 0.5 mg/dL (0.2-1.0); C-Reactive Protein 0.08 mg/dL (0.0-0.3)
[2021-10-08 13:27] VITALS: BP 143/99; PULSE 96; RESP 16; TEMP 36.6; O2SAT 100
[2021-10-08 13:45] VITALS: BP 143/96; PULSE 107; RESP 16; TEMP 36.6; O2SAT 100
[2021-10-08 14:15] VITALS: BP 147/99; PULSE 100; RESP 17; TEMP 36.5; O2SAT 100
[2021-10-08 14:47] VITALS: BP 144/96; PULSE 100; RESP 16; TEMP 36.9; O2SAT 100
== END 2021-10-19 23:59 | disposition home or self-care (01) ==
LOC: INF 01:26
PROVIDERS: Internal Medicine Gastroenterology; PCP Nurse Practitioner Family; Visit Provider Family Medicine
DX: K50.90 Crohn's disease, unspecified, without complications (principal)
CPT/HCPCS: 36415; 80076; 85027; 96365; 96366; 96413; 96415; 86140; J1745

== ENCOUNTER 2021-12-03 02:07 | Outpatient (RCR) | payer MEDICARE, MEDICAID, SELFPAY ==
[2021-10-20 00:09] VITALS: BP 144/96; PULSE 100; RESP 16; TEMP 36.9
[2021-12-03] VITALS (7 sets, daily range): BP systolic 129–139; BP diastolic 78–96; PULSE 80–114; RESP 17–18; TEMP 36.2–37; O2SAT 97–100
[2021-12-03 13:01] LABS: Abs Immature Grans 0.02 10^3/uL (0.0-0.06); Absolute Basophil Count 0.03 10^3/uL (0.0-0.2); Absolute Eosinophil Count 0.06 10^3/uL (0.0-0.7); Absolute Lymphocyte Count 2.46 10^3/uL (1.2-3.4); Absolute Monocyte Count 0.58 10^3/uL (0.1-0.8); Absolute Neutrophil Count 4.46 10^3/uL (1.2-6.7); Basophils % 0.4; Eosinophils % 0.8; HCT 49.5 % (40.0-50.0); HGB 16.2 g/dL (13.5-17.5); Immature Grans % 0.3; Lymphocytes % 32.3; MCH 27.5 pg (27.0-33.0); MCHC 32.7 % (32.0-36.0); MPV 10.6 fL (8.0-11.0); Monocytes % 7.6; Neutrophils % 58.6; Nucleated RBC 0 %; Platelet Count 219 10^3/uL (130-400); RBC 5.89 10^6/uL (4.36-5.78); RDW 13.2 % (11.8-14.1); RDW-SD 40.7 fL; WBC 7.61 10^3/uL (4.4-10.8)
[2021-12-03] MEDS: Normal Saline Flush 10 ML SYR IVP ×2 (13:13→13:18)
[2021-12-03 13:28] LABS: ALT 61 U/L (16-63); AST 25 U/L (15-37); Albumin 4.5 g/dL (3.4-5.0); Alkaline Phosphatase 72 U/L (46-116); Anion Gap 10.7 mmol/L (3-11); BUN 11 mg/dL (7-18); Bilirubin, Direct 0.2 mg/dL (0.0-0.2); Bilirubin, Total 1.4 mg/dL (0.2-1.0); C-Reactive Protein 0.34 mg/dL (0.0-0.3); CO2 28.3 mmol/L (21.0-32.0); CREATININE 1.2 mg/dL (0.70-1.30); Calcium 9.3 mg/dL (8.5-10.1); Chloride 101 mmol/L (98-107); Glucose 102 mg/dL (74-106); Potassium 3.3 mmol/L (3.5-5.1); Sodium 140 mmol/L (136-145); Total Protein 8.4 g/dL (6.4-8.2)
[2021-12-11 00:41] LABS: Infliximab 25 mcg/mL
== END 2021-12-19 23:59 | disposition home or self-care (01) ==
LOC: INF 02:07
PROVIDERS: PCP Nurse Practitioner Family; Visit Provider Family Medicine
DX: K50.111 Crohn's disease of large intestine with rectal bleeding (principal); Z79.899 Other long term (current) drug therapy
CPT/HCPCS: 36415; 80053; 80076; 82306; 82397; 85027; 96365; 96366; 96413; 96415; 85025; 86140; J1745

== ENCOUNTER 2022-01-28 02:06 | Outpatient (RCR) | payer MEDICARE, MEDICAID, SELFPAY ==
[2021-12-20] VITALS: BP 129/96; PULSE 105; RESP 18; TEMP 36.2
[2022-01-28] VITALS (7 sets, daily range): BP systolic 115–121; BP diastolic 60–88; PULSE 82–117; RESP 16–17; TEMP 36.4–36.6; O2SAT 96–100
[2022-01-28] MEDS: Normal Saline Flush 10 ML SYR IVP (12:18)
== END 2022-02-18 23:59 | disposition home or self-care (01) ==
LOC: INF 02:06
PROVIDERS: PCP Nurse Practitioner Family; Visit Provider Family Medicine
DX: K50.90 Crohn's disease, unspecified, without complications (principal)
CPT/HCPCS: 96365; 96366; J1745

== ENCOUNTER 2022-03-25 02:41 | Outpatient (RCR) | payer MEDICARE, MEDICAID, SELFPAY ==
[2022-02-19 00:02] VITALS: BP 115/78; PULSE 82; RESP 17; TEMP 36.6
[2022-03-25 12:40] LABS: HCT 48.3 % (40.0-50.0); HGB 16.1 g/dL (13.5-17.5); MCH 28.8 pg (27.0-33.0); MCHC 33.3 % (32.0-36.0); MCV 86 fL (80-95); MPV 10.7 fL (8.0-11.0); Platelet Count 165 10^3/uL (130-400); RBC 5.59 10^6/uL (4.36-5.78); RDW 13.3 % (11.8-14.1); RDW-SD 42.5 fL
[2022-03-25 12:46] VITALS: BP 139/89; PULSE 117; RESP 19; TEMP 36.7; O2SAT 99
[2022-03-25 13:04] LABS: ALT 31 U/L (16-63); AST 19 U/L (15-37); Albumin 4.3 g/dL (3.4-5.0); Alkaline Phosphatase 73 U/L (46-116); Bilirubin, Direct 0.1 mg/dL (0.0-0.2); Bilirubin, Total 0.6 mg/dL (0.2-1.0); C-Reactive Protein 0.13 mg/dL (0.0-0.3); Total Protein 8.4 g/dL (6.4-8.2)
[2022-03-25] MEDS: Normal Saline Flush 10 ML SYR IVP (13:18)
[2022-03-25 13:39] VITALS: BP 139/94; PULSE 116; RESP 17; TEMP 36.6; O2SAT 98
[2022-03-25 13:55] VITALS: BP 154/114; PULSE 118; RESP 16; TEMP 36.3; O2SAT 97
[2022-03-25 14:10] VITALS: BP 147/110; PULSE 108; RESP 19; TEMP 36.3; O2SAT 98
[2022-03-25 14:25] VITALS: BP 154/113; PULSE 100; RESP 16; TEMP 36.4; O2SAT 100
[2022-03-25 14:55] VITALS: BP 166/106; PULSE 63; RESP 16; TEMP 36.7; O2SAT 100
== END 2022-04-21 23:59 | disposition home or self-care (01) ==
LOC: INF 02:41
PROVIDERS: PCP Nurse Practitioner Family; Visit Provider Family Medicine
DX: K50.90 Crohn's disease, unspecified, without complications (principal)
CPT/HCPCS: 80076; 85027; 96365; 96366; 86140; J1745

== ENCOUNTER 2022-05-20 04:00 | Outpatient (RCR) | payer MEDICARE, MEDICAID, SELFPAY ==
[2022-04-22 00:01] VITALS: BP 166/106; PULSE 63; RESP 16; TEMP 36.7
[2022-05-20] VITALS (7 sets, daily range): BP systolic 111–125; BP diastolic 77–84; PULSE 91–107; RESP 16–17; TEMP 36.2–37.1; O2SAT 97–100
[2022-05-20] MEDS: Normal Saline Flush 10 ML SYR IVP (12:49)
== END 2022-05-21 23:59 | disposition home or self-care (01) ==
LOC: INF 04:00
PROVIDERS: PCP Nurse Practitioner Family; Visit Provider Family Medicine
DX: K50.90 Crohn's disease, unspecified, without complications (principal)
CPT/HCPCS: 96365; 96366; J1745

== ENCOUNTER 2022-07-14 02:19 | Outpatient (RCR) | payer MEDICARE, MEDICAID, SELFPAY ==
[2022-05-22 00:16] VITALS: BP 118/78; PULSE 101; RESP 16; TEMP 36.5
[2022-07-14 12:08] LABS: HCT 46.5 % (40.0-50.0); HGB 15.8 g/dL (13.5-17.5); MCH 29.3 pg (27.0-33.0); MCV 86 fL (80-95); MPV 10.5 fL (8.0-11.0); Platelet Count 190 10^3/uL (130-400); RBC 5.39 10^6/uL (4.36-5.78); RDW 13.2 % (11.8-14.1); RDW-SD 41.4 fL; WBC 7.31 10^3/uL (4.4-10.8)
[2022-07-14 12:23] LABS: ALT 28 U/L (16-63); AST 16 U/L (15-37); Albumin 4.3 g/dL (3.4-5.0); Alkaline Phosphatase 69 U/L (46-116); Bilirubin, Direct 0.2 mg/dL (0.0-0.2); Bilirubin, Total 0.7 mg/dL (0.2-1.0); C-Reactive Protein 0.07 mg/dL (0.0-0.3); Total Protein 8.2 g/dL (6.4-8.2)
[2022-07-14 12:27] VITALS: BP 129/89; PULSE 112; RESP 16; TEMP 36.7; O2SAT 99
[2022-07-14] MEDS: Normal Saline Flush 10 ML SYR IVP (12:27)
[2022-07-14 12:47] VITALS: BP 131/88; PULSE 103; RESP 17; TEMP 36.7; O2SAT 97
[2022-07-14 13:02] VITALS: BP 138/89; PULSE 105; RESP 16; TEMP 36.5; O2SAT 96
[2022-07-14 13:20] VITALS: BP 132/87; PULSE 112; RESP 16; TEMP 36.6; O2SAT 99
[2022-07-14 13:53] VITALS: BP 143/94; PULSE 100; RESP 16; TEMP 36.7; O2SAT 98
[2022-07-14 14:25] VITALS: BP 134/90; PULSE 69; RESP 17; TEMP 36.6; O2SAT 98
== END 2022-07-21 23:59 | disposition home or self-care (01) ==
LOC: INF 02:19
PROVIDERS: PCP Nurse Practitioner Family; Visit Provider Family Medicine
DX: K50.90 Crohn's disease, unspecified, without complications (principal)
CPT/HCPCS: 36415; 80076; 85027; 96365; 96366; 86140; J1745

== ENCOUNTER 2022-08-10 08:22 | Emergency (ER) | payer MEDICARE, MEDICAID, SELFPAY ==
[2022-08-10 08:26] VITALS: BP 159/107; PULSE 63; RESP 18; TEMP 36.6; O2SAT 100
--- NOTE | 2022-08-10 08:40 | W.ED.GENAD ---
Discharge Plan Disposition Patient Disposition: Home Condition: Stable Discharge Details Clinical Impression: Dental infection Primary Care Provider: Delfino Mayroga ED Provider: Edmond Flynn Home Meds and New Rx's Prescriptions: New penicillin V potassium 500 mg tablet 500 mg PO QID Qty: 39 0RF Continued melatonin 3 mg tablet 3 mg PO HS PRN (Reason: sleep) Qty: 30 5RF infliximab [Remicade] 100 mg recon soln IV Q4W diphenhydramine HCl [Benadryl Allergy] 25 mg tablet 25 mg PO TID PRN dextroamphetamine-amphetamine 30 mg tablet 30 mg PO BID MDD 60 mg Qty: 56 0RF Rx Instructions: administer doses at least 4-6 hours apart Discharge Instructions Instructions: Dental Abscess (ED) Additional Instructions: Please take full course of antibiotic as prescribed. Please follow-up with your dentist. Dental referral sheet was provided if you have difficulty accessing your dentist. Please take ibuprofen over the counter. Take 600mg by mouth every 6 hours as needed for pain. Please take acetaminophen (tylenol) - 650mg every 6 hours by mouth as needed for pain. Please contact your primary care physician to arrange follow-up. Return to the ER immediately for any worsening or new concerning symptoms. Referrals: Delfino Mayorga, [employer] [Primary Care Provider] - Medical Decision Making 36yo m here with chronic dental caries now with increased pain over the past 3 to 4 days. Concern for periapical dental infections tooth #16 and 17. No abscess amenable to drainage. Plan to treat with penicillin. Will provide local anesthetic injection for pain. Patient advised to continue ibuprofen and Tylenol. Usual customary discharge instructions were reviewed with patient. He was provided dental referral form. HPI General Mode of arrival: ambulatory. Date/Time Provider Initiated Documentation: 08/10/22 08:26. Limitations to Documentation: no limitations. Information obtained by: patient and family. HPI Narrative: 36-year-old male with history of dental decay that is chronic times years. Now here with increased dental pain over the past 3 days. Pain is moderate to severe. Pain localized to left upper lower molar. No associated facial swelling. No fever. Related Data Home Medications Medication Instructions Recorded Confirmed melatonin 3 mg tablet 3 mg PO HS PRN sleep #30 tabs 08/03/19 08/10/22 infliximab 100 mg intravenous IV Q4W 11/08/19 05/24/22 solution (Remicade) diphenhydramine HCl 25 mg tablet 25 mg PO TID PRN 09/11/20 08/10/22 (Benadryl Allergy) dextroamphetamine-amphetamine 30 30 mg PO BID #56 tabs 07/30/22 08/10/22 mg tablet penicillin V potassium 500 mg 500 mg PO QID #39 tabs 08/10/22 tablet Previous Rx's Medication Instructions Recorded melatonin 3 mg tablet 3 mg PO HS PRN sleep #30 tabs 08/03/19 dextroamphetamine-amphetamine 30 30 mg PO BID #56 tabs 07/30/22 mg tablet penicillin V potassium 500 mg 500 mg PO QID #39 tabs 08/10/22 tablet Allergies Allergy/AdvReac Type Severity Reaction Status Date / Time No Known Allergies Allergy Verified 08/10/22 08:30 General Stated Complaint: DentalOral JASEN: 4 Review of Systems Constitutional Constitutional: Reports as per HPI ENT Ears, Nose, Mouth, and Throat: Reports as per HPI PFSH All Active Problems Dental infection (Acute) Jock itch (Acute) Hyperlipidemia (Acute) Elevated cholesterol with elevated triglycerides (Acute) Tachycardia (Acute) Hypertension (Chronic) Excessive drinking alcohol (Acute) Tobacco dependence (Acute) Ulcerative colitis with rectal bleeding (Acute) IBD (inflammatory bowel disease) (Acute) Transaminitis (Acute) PTSD (post-traumatic stress disorder) (Chronic) Reactive attachment disorder, other psychiatric history NOS. 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) Schizoid personality disorder (Chronic 08/18/15) Allergic rhinitis (Chronic) Medical History Bacterial pneumonia (10/18/13) Hypokalemia Shoulder pain, right (08/18/15) Surgical History History of dental surgery Family History Mother Crohn disease Paternal Grandfather Cancer head and neck cancer - smoker Other Diabetes Ulcerative colitis Social History Smoking/Tobacco Use Status: Current every day Tobacco Type: cigarettes Smoking risk assessment performed?: Yes Alcohol Intake: current Alcohol Intake frequency: 3 or more drinks per day Alcohol type: beer Drug use: Occasionally Substance use type: marijuana Current gender identity: male Do you feel safe at home: Yes Do you feel safe in your relationship?: Yes Additional Social history: patient feels like he is going to from the abdominal pain. Exam Const General: cooperative and no acute distress [facility] General nose exam: external nose normal Face and sinus: normal facial exam Mouth: moist mucous membranes Teeth and gingiva: poor dentition (left upper and lower molar decay, no fluctuance) Throat: posterior oropharynx normal Eyes Conjunctivae: normal conjunctivae Sclera: normal sclerae Neck Neck: trachea midline, supple, no anterior neck swelling and no lymphadenopathy noted Cardio Rate: regular rate and not tachycardic Rhythm: regular rhythm Course Vital Signs Vital signs: Vital Signs Temperature 36.6 C 08/10/22 08:26 Pulse 63 08/10/22 08:26 Respiratory Rate 18 08/10/22 08:26 Blood Pressure 159/107 H 08/10/22 08:26 Pulse Oximetry 100 08/10/22 08:26 Temperature 36.6 C 08/10/22 08:26 Temperature Source Skin 08/10/22 08:26 Pulse 63 08/10/22 08:26 Respiratory Rate 18 08/10/22 08:26 Respiratory Effort 08/10/22 08:29 Blood Pressure 159/107 H 08/10/22 08:26 Blood Pressure Position Sitting 08/10/22 08:26 Pulse Oximetry 100 08/10/22 08:26 Oxygen Delivery Method Room Air 08/10/22 08:26 Oxygen Flow Rate 0 08/10/22 08:26 Pain Level 7 08/10/22 08:26 PAWSS Have you Been Recently Intoxicated or Drunk Within the Last 30 days?: Yes Have you Ever Experienced Previous Episodes of Alcohol Withdrawal?: No Have you ever Experienced Withdrawal Seizures?: No Have you ever Experienced Delirium Tremens(DT)s?: No Have you ever undergone Alcohol Rehabilitation Treatment (i.e, inpt ot outpatient treatment programs)?: No Have you ever Experienced Blackouts?: No Have you ever Combined Alcohol with other Downers within the last 90 days?: No Have you ever Combined Alcohol with any other Substance of Abuse during the last 90 days?: No Positive Blood Alcohol level on Presentation? [PCS.BAL]: No Evidence of Increased Autonomic Activity (i.e. HR>120, tremor, sweating, agitation, nausea)?: No Result: 1
[2022-08-10] MEDS: Penicillin V POTASSIUM 500 MG TAB PO (09:00)
== END 2022-08-10 09:08 | disposition home or self-care (01) ==
PROVIDERS: Emergency Provider Student in an Organized Health Care Education/Training Program; PCP Nurse Practitioner Family
DX: K04.7 Periapical abscess without sinus (principal)
CPT/HCPCS: 99283

== ENCOUNTER 2022-09-07 02:53 | Outpatient (RCR) | payer MEDICARE, MEDICAID, SELFPAY ==
[2022-09-07 12:21] VITALS: BP 131/83; PULSE 109; RESP 18; TEMP 36.2; O2SAT 100
[2022-09-07] MEDS: Normal Saline Flush 10 ML SYR IVP (12:58)
[2022-09-07 13:15] VITALS: BP 141/96; PULSE 109; RESP 16; TEMP 36.9; O2SAT 99
[2022-09-07 13:30] VITALS: BP 143/94; PULSE 111; RESP 16; TEMP 37.4; O2SAT 97
[2022-09-07 13:46] VITALS: BP 133/91; PULSE 102; RESP 17; TEMP 37.2; O2SAT 99
[2022-09-07 14:17] VITALS: BP 134/98; PULSE 104; RESP 17; TEMP 37.3; O2SAT 99
[2022-09-07 14:52] VITALS: BP 139/87; PULSE 95; RESP 17; TEMP 37.7; O2SAT 98
== END 2022-09-21 23:59 | disposition home or self-care (01) ==
LOC: INF 02:53
PROVIDERS: PCP Nurse Practitioner Family; Visit Provider Family Medicine
DX: K50.90 Crohn's disease, unspecified, without complications (principal)
CPT/HCPCS: 96365; 96366; J1745

== ENCOUNTER 2022-11-01 02:59 | Outpatient (RCR) | payer MEDICARE, MEDICAID, SELFPAY ==
[2022-09-22 00:19] VITALS: BP 139/87; PULSE 95; RESP 17; TEMP 37.7
[2022-11-01 12:20] VITALS: BP 134/86; PULSE 105; RESP 16; TEMP 36.4; O2SAT 100
[2022-11-01 12:55] LABS: Anion Gap 7.9 mmol/L (3-11); BUN 20 mg/dL (7-18); CO2 29.1 mmol/L (21.0-32.0); Calcium 9.1 mg/dL (8.5-10.1); Chloride 101 mmol/L (98-107); Estimated GFR 100.66 (mL/min/1.73m2); Glucose 106 mg/dL (74-106); Potassium 3.6 mmol/L (3.5-5.1); Sodium 138 mmol/L (136-145)
[2022-11-01] MEDS: Normal Saline Flush 10 ML SYR IVP (13:01)
[2022-11-01 13:15] VITALS: BP 117/81; PULSE 87; RESP 17; TEMP 36.1; O2SAT 98
[2022-11-01 13:30] VITALS: BP 127/85; PULSE 94; RESP 17; TEMP 36.4; O2SAT 99
[2022-11-01 13:45] VITALS: BP 136/84; PULSE 99; RESP 16; TEMP 36.6; O2SAT 98
[2022-11-01 14:26] VITALS: BP 143/81; PULSE 87; RESP 16; TEMP 36.7; O2SAT 99
[2022-11-01 14:55] VITALS: BP 143/97; PULSE 114; RESP 17; TEMP 36.7; O2SAT 99
[2022-11-03 13:51] LABS: TB Interpretation Negative (Negative); TB1 Ag minus Nil 0.02 IU/ml; TB2 Ag minus Nil 0.03 IU/mL
[2022-11-03 15:33] LABS: Infliximab 24 mcg/mL
[2022-11-12 14:08] LABS: 6-Methylmercaptopurine ribosid 5.17 nmol/mL/h (5.04-9.57)
== END 2022-11-19 23:59 | disposition home or self-care (01) ==
LOC: INF 02:59
PROVIDERS: PCP Nurse Practitioner Family; Visit Provider Family Medicine
DX: K50.819 Crohn's disease of both small and large intestine with unspecified complications (principal)
CPT/HCPCS: 36415; 80048; 82397; 82657; 96365; 96366; 86480; J1745

== ENCOUNTER 2022-12-27 02:45 | Outpatient (RCR) | payer MEDICARE, MEDICAID, SELFPAY ==
[2022-11-20 00:02] VITALS: BP 143/97; PULSE 114; RESP 17; TEMP 36.7
[2022-12-27 12:27] VITALS: BP 124/81; PULSE 96; RESP 17; TEMP 36.6; O2SAT 96
[2022-12-27 13:23] VITALS: BP 114/74; PULSE 76; TEMP 36.7; O2SAT 95
[2022-12-27 13:38] VITALS: BP 114/75; PULSE 78; RESP 17; TEMP 36.8; O2SAT 98
[2022-12-27 13:53] VITALS: BP 124/84; PULSE 82; TEMP 36.7; O2SAT 97
[2022-12-27 14:30] VITALS: BP 125/79; PULSE 80; TEMP 36.5; O2SAT 96
[2022-12-27 15:00] VITALS: BP 124/78; PULSE 82; RESP 17; TEMP 36.9; O2SAT 96
== END 2023-01-19 23:59 | disposition home or self-care (01) ==
LOC: INF 02:45
PROVIDERS: PCP Nurse Practitioner Family; Visit Provider Family Medicine
DX: K50.90 Crohn's disease, unspecified, without complications (principal)
CPT/HCPCS: 96365; 96366; J1745

== ENCOUNTER 2023-02-21 02:17 | Outpatient (RCR) | payer MEDICARE, MEDICAID, SELFPAY ==
[2023-01-20 00:02] VITALS: BP 124/78; PULSE 82; RESP 17; TEMP 36.9
[2023-02-21] VITALS (7 sets, daily range): BP systolic 128–162; BP diastolic 88–99; PULSE 80–122; RESP 17; TEMP 36.1–37; O2SAT 96–98
[2023-02-21 12:24] LABS: HCT 50.1 % (40.0-50.0); HGB 16.9 g/dL (13.5-17.5); MCH 29.2 pg (27.0-33.0); MCHC 33.7 % (32.0-36.0); MCV 87 fL (80-95); MPV 10.2 fL (8.0-11.0); Platelet Count 205 10^3/uL (130-400); RBC 5.79 10^6/uL (4.36-5.78); RDW 13.3 % (11.8-14.1); RDW-SD 41.8 fL; WBC 6.27 10^3/uL (4.4-10.8)
[2023-02-21 12:40] LABS: ALT 55 U/L (16-63); AST 25 U/L (15-37); Albumin 4.1 g/dL (3.4-5.0); Alkaline Phosphatase 71 U/L (46-116); Bilirubin, Direct 0.1 mg/dL (0.0-0.2); Bilirubin, Total 0.5 mg/dL (0.2-1.0); C-Reactive Protein 0.07 mg/dL (0.0-0.3); Total Protein 8.3 g/dL (6.4-8.2)
[2023-02-21] MEDS: Normal Saline Flush 10 ML SYR IVP (13:02)
== END 2023-03-21 23:59 | disposition home or self-care (01) ==
LOC: INF 02:17
PROVIDERS: Internal Medicine Gastroenterology; PCP Nurse Practitioner Family; Visit Provider Family Medicine
DX: K50.819 Crohn's disease of both small and large intestine with unspecified complications (principal); Z45.2 Encounter for adjustment and management of vascular access device
CPT/HCPCS: 36415; 36591; 80076; 85027; 96365; 96366; 86140

== ENCOUNTER 2023-04-28 04:07 | Outpatient (RCR) | payer MEDICARE, MEDICAID, SELFPAY ==
[2023-04-22 00:17] VITALS: BP 145/99; PULSE 117; RESP 17; TEMP 37
[2023-04-28 12:50] VITALS: BP 131/90; PULSE 74; RESP 16; TEMP 36.4; O2SAT 97
[2023-04-28] MEDS: Normal Saline Flush 10 ML SYR IVP (12:56)
[2023-04-28 13:25] VITALS: BP 135/85; PULSE 69; RESP 17; TEMP 36.6; O2SAT 96
[2023-04-28 13:55] VITALS: BP 145/95; PULSE 73; RESP 17; TEMP 36.7; O2SAT 99
[2023-04-28 14:24] VITALS: BP 144/91; PULSE 55; RESP 16; TEMP 36.8; O2SAT 98
[2023-04-28 15:00] VITALS: BP 130/86; PULSE 85; RESP 17; TEMP 36.9; O2SAT 97
== END 2023-05-21 23:59 | disposition home or self-care (01) ==
LOC: INF 04:07
PROVIDERS: PCP Nurse Practitioner Family; Visit Provider Family Medicine
DX: K50.90 Crohn's disease, unspecified, without complications (principal)
CPT/HCPCS: 96365; 96366

== ENCOUNTER 2023-07-11 03:58 | Outpatient (RCR) | payer MEDICARE, MEDICAID, SELFPAY ==
[2023-05-22 00:06] VITALS: BP 130/86; PULSE 85; RESP 17; TEMP 36.9
[2023-07-11] VITALS (7 sets, daily range): BP systolic 117–138; BP diastolic 79–95; PULSE 55–80; RESP 16–20; TEMP 36.6–37.2; O2SAT 96–97
[2023-07-11] MEDS: Normal Saline Flush 10 ML SYR IVP (12:36)
[2023-07-11 12:54] LABS: HCT 48.5 % (40.0-50.0); HGB 16.2 g/dL (13.5-17.5); MCH 28.7 pg (27.0-33.0); MCHC 33.4 % (32.0-36.0); MCV 86 fL (80-95); MPV 10.5 fL (8.0-11.0); Platelet Count 193 10^3/uL (130-400); RBC 5.64 10^6/uL (4.36-5.78); RDW 12.8 % (11.8-14.1); RDW-SD 39.9 fL; WBC 6.17 10^3/uL (4.4-10.8)
[2023-07-11 13:10] LABS: ALT 38 U/L (16-63); AST 14 U/L (15-37); Albumin 3.9 g/dL (3.4-5.0); Alkaline Phosphatase 62 U/L (46-116); Bilirubin, Direct 0.1 mg/dL (0.0-0.2); Bilirubin, Total 0.7 mg/dL (0.2-1.0); C-Reactive Protein 0.08 mg/dL (0.0-0.3)
== END 2023-07-21 23:59 | disposition home or self-care (01) ==
LOC: INF 03:58
PROVIDERS: Internal Medicine Gastroenterology; PCP Nurse Practitioner Family; Visit Provider Family Medicine
DX: K50.90 Crohn's disease, unspecified, without complications (principal)
CPT/HCPCS: 36415; 80076; 85027; 96365; 96366; 86140

== ENCOUNTER 2023-09-09 00:56 | Outpatient (RCR) | payer MEDICARE, MEDICAID, SELFPAY ==
[2023-07-22 00:16] VITALS: BP 130/86; PULSE 85; RESP 17; TEMP 36.9
[2023-09-09] VITALS (7 sets, daily range): BP systolic 111–126; BP diastolic 63–81; PULSE 56–82; RESP 16–17; TEMP 35.3–36.6; O2SAT 96–100
[2023-09-09] MEDS: Normal Saline Flush 10 ML SYR IVP (11:27)
== END 2023-09-21 23:59 | disposition home or self-care (01) ==
LOC: INF 00:56
PROVIDERS: PCP Nurse Practitioner Family; Visit Provider Family Medicine
DX: K50.819 Crohn's disease of both small and large intestine with unspecified complications
CPT/HCPCS: 96365; 96366; Q5103

== ENCOUNTER 2023-11-04 02:00 | Outpatient (RCR) | payer MEDICARE, MEDICAID, SELFPAY ==
[2023-09-22 00:02] VITALS: BP 130/86; PULSE 85; RESP 17; TEMP 36.9
[2023-11-04 11:50] VITALS: BP 131/94; PULSE 59; RESP 16; TEMP 36.9; O2SAT 98
[2023-11-04 12:20] LABS: HCT 48.9 % (40.0-50.0); HGB 16.3 g/dL (13.5-17.5); MCH 28.7 pg (27.0-33.0); MCHC 33.3 % (32.0-36.0); MCV 86 fL (80-95); MPV 10.5 fL (8.0-11.0); Platelet Count 203 10^3/uL (130-400); RBC 5.68 10^6/uL (4.36-5.78); RDW 12.8 % (11.8-14.1); RDW-SD 39.9 fL; WBC 7.91 10^3/uL (4.4-10.8)
[2023-11-04 12:33] LABS: ALT 61 U/L (16-63); AST 24 U/L (15-37); Albumin 4.1 g/dL (3.4-5.0); Alkaline Phosphatase 94 U/L (46-116); Bilirubin, Direct 0.2 mg/dL (0.0-0.2); Total Protein 8.2 g/dL (6.4-8.2)
[2023-11-04 12:34] LABS: C-Reactive Protein < 0.50 mg/dL (<or=0.5)
[2023-11-04] MEDS: Normal Saline Flush 10 ML SYR IVP (12:38)
[2023-11-04 12:53] VITALS: BP 125/84; PULSE 88; RESP 18; TEMP 36.9; O2SAT 96
[2023-11-04 13:08] VITALS: BP 131/95; PULSE 92; RESP 16; TEMP 36.7; O2SAT 96
[2023-11-04 13:25] VITALS: BP 142/87; PULSE 95; RESP 16; TEMP 36.7; O2SAT 96
[2023-11-04 13:40] VITALS: BP 122/84; PULSE 90; RESP 17; TEMP 36.7; O2SAT 98
[2023-11-04 14:10] VITALS: BP 129/86; PULSE 83; RESP 16; TEMP 36.7; O2SAT 96
[2023-11-14 13:43] LABS: Infliximab 19 mcg/mL
== END 2023-11-20 23:59 | disposition home or self-care (01) ==
LOC: INF 02:00
PROVIDERS: Nurse Practitioner Acute Care; PCP Nurse Practitioner Family; Visit Provider Family Medicine
DX: K50.90 Crohn's disease, unspecified, without complications (principal)
CPT/HCPCS: 36415; 80076; 82397; 85027; 96365; 96366; 86140; Q5103

== ENCOUNTER 2024-01-04 04:33 | Outpatient (RCR) | payer MEDICARE, MEDICAID, SELFPAY ==
[2023-11-21 00:11] VITALS: BP 130/86; PULSE 85; RESP 17; TEMP 36.9
[2024-01-04] VITALS (7 sets, daily range): BP systolic 136–154; BP diastolic 81–101; PULSE 121–131; RESP 16–17; TEMP 36.5–36.8; O2SAT 97–98
[2024-01-04] MEDS: Normal Saline Flush 10 ML SYR IVP (12:53)
== END 2024-01-20 23:59 | disposition home or self-care (01) ==
LOC: INF 04:33
PROVIDERS: PCP Nurse Practitioner Family; Visit Provider Family Medicine
DX: K50.819 Crohn's disease of both small and large intestine with unspecified complications (principal); Z79.620 Long term (current) use of immunosuppressive biologic; K50.90 Crohn's disease, unspecified, without complications
CPT/HCPCS: 96365; 96366; Q5103

== ENCOUNTER 2024-03-08 02:07 | Outpatient (RCR) | payer MEDICARE, MEDICAID, SELFPAY ==
[2024-01-21 00:02] VITALS: BP 130/86; PULSE 85; RESP 17; TEMP 36.9
[2024-03-08] VITALS (7 sets, daily range): BP systolic 122–137; BP diastolic 85–100; PULSE 81–108; RESP 16–17; TEMP 36–37.1; O2SAT 94–100
[2024-03-08 11:57] LABS: HCT 47.3 % (40.0-50.0); HGB 15.8 g/dL (13.5-17.5); MCHC 33.4 % (32.0-36.0); MCV 87 fL (80-95); MPV 10.7 fL (8.0-11.0); Platelet Count 195 10^3/uL (130-400); RBC 5.45 10^6/uL (4.36-5.78); RDW 12.9 % (11.8-14.1); RDW-SD 40.4 fL
[2024-03-08 12:16] LABS: ALT 41 U/L (16-63); AST 17 U/L (15-37); Alkaline Phosphatase 71 U/L (46-116); Bilirubin, Direct 0.1 mg/dL (0.0-0.2); Bilirubin, Total 0.83 mg/dL (0.2-1.0); Total Protein 7.9 g/dL (6.4-8.2)
[2024-03-08 12:18] LABS: C-Reactive Protein < 0.50 mg/dL (<or=0.5)
[2024-03-08] MEDS: Normal Saline Flush 10 ML SYR IVP (12:53)
== END 2024-03-21 23:59 | disposition home or self-care (01) ==
LOC: INF 02:07
PROVIDERS: Internal Medicine Gastroenterology; PCP Nurse Practitioner Family; Visit Provider Family Medicine
DX: K50.90 Crohn's disease, unspecified, without complications (principal)
CPT/HCPCS: 80076; 85027; 96365; 96366; 86140; Q5103

== ENCOUNTER 2024-06-28 03:09 | Outpatient (RCR) | payer MEDICARE, MEDICAID, SELFPAY ==
[2024-05-22 00:02] VITALS: BP 130/86; PULSE 85; RESP 17; TEMP 36.9
[2024-06-28] VITALS (7 sets, daily range): BP systolic 131–153; BP diastolic 83–99; PULSE 63–85; RESP 17–18; TEMP 35.3–36.5; O2SAT 95–100
[2024-06-28 11:50] LABS: HCT 45.3 % (40.0-50.0); HGB 15.1 g/dL (13.5-17.5); MCHC 33.3 % (32.0-36.0); MCV 87 fL (80-95); MPV 9.8 fL (8.0-11.0); Platelet Count 198 10^3/uL (130-400); RBC 5.21 10^6/uL (4.36-5.78); RDW 13.2 % (11.8-14.1); RDW-SD 41.3 fL; WBC 5.99 10^3/uL (4.4-10.8)
[2024-06-28 12:05] LABS: ALT 42 U/L (16-63); AST 15 U/L (15-37); Albumin 3.7 g/dL (3.4-5.0); Alkaline Phosphatase 79 U/L (46-116); Bilirubin, Direct 0.1 mg/dL (0.0-0.2); Bilirubin, Total 0.48 mg/dL (0.2-1.0); C-Reactive Protein 0.52 mg/dL (<or=0.5); Total Protein 7.9 g/dL (6.4-8.2)
[2024-06-28] MEDS: Normal Saline Flush 10 ML SYR IVP (12:22)
== END 2024-07-21 23:59 | disposition home or self-care (01) ==
LOC: INF 03:09
PROVIDERS: Internal Medicine Gastroenterology; PCP Nurse Practitioner Family; Visit Provider Family Medicine
DX: K50.90 Crohn's disease, unspecified, without complications (principal); Z79.620 Long term (current) use of immunosuppressive biologic
CPT/HCPCS: 80076; 85027; 96365; 96366; 86140; Q5103

== ENCOUNTER 2024-08-23 03:26 | Outpatient (RCR) | payer MEDICARE, MEDICAID, SELFPAY ==
[2024-07-22 00:01] VITALS: BP 130/86; PULSE 85; RESP 17; TEMP 36.9
[2024-08-23 11:17] VITALS: BP 142/93; PULSE 67; RESP 18; TEMP 36.3; O2SAT 95
[2024-08-23] MEDS: Normal Saline Flush 10 ML SYR IVP ×2 (12:51→15:10)
[2024-08-23 12:55] VITALS: BP 165/108; PULSE 122; RESP 18; TEMP 36.7; O2SAT 98
[2024-08-23 13:05] VITALS: BP 148/91; PULSE 122; RESP 18; TEMP 36.7; O2SAT 95
[2024-08-23 13:20] VITALS: BP 151/100; PULSE 120; RESP 18; TEMP 36.7; O2SAT 98
[2024-08-23 13:35] VITALS: BP 140/101; PULSE 123; RESP 20; TEMP 37.2; O2SAT 96
[2024-08-23 14:05] VITALS: BP 142/86; PULSE 125; RESP 20; TEMP 36.8; O2SAT 98
== END 2024-09-21 23:59 | disposition home or self-care (01) ==
LOC: INF 03:26
PROVIDERS: PCP Nurse Practitioner Family; Visit Provider Family Medicine
DX: K50.819 Crohn's disease of both small and large intestine with unspecified complications (principal)
CPT/HCPCS: 96365; 96366; Q5103

== ENCOUNTER 2024-10-31 04:19 | Outpatient (RCR) | payer MEDICARE, MEDICAID, SELFPAY ==
[2024-10-31] VITALS (7 sets, daily range): BP systolic 125–139; BP diastolic 80–99; PULSE 103–110; RESP 17–20; TEMP 36–36.9; O2SAT 95–99
[2024-10-31 11:24] LABS: HCT 48.9 % (40.0-50.0); HGB 16.2 g/dL (13.5-17.5); MCH 28.3 pg (27.0-33.0); MCHC 33.1 % (32.0-36.0); MCV 86 fL (80-95); MPV 10.4 fL (8.0-11.0); Platelet Count 204 10^3/uL (130-400); RBC 5.72 10^6/uL (4.36-5.78); RDW 13.4 % (11.8-14.1); RDW-SD 41.6 fL; WBC 7.49 10^3/uL (4.4-10.8)
[2024-10-31] MEDS: Normal Saline Flush 5 ML SYR IVP (11:33)
[2024-10-31 11:41] LABS: ALT 61 U/L (16-63); AST 22 U/L (15-37); Albumin 4.1 g/dL (3.4-5.0); Alkaline Phosphatase 96 U/L (46-116); Bilirubin, Direct 0.1 mg/dL (0.0-0.2); Bilirubin, Total 0.7 mg/dL (0.2-1.0); C-Reactive Protein 0.66 mg/dL (<or=0.5); Total Protein 8.5 g/dL (6.4-8.2)
== END 2024-11-19 23:59 | disposition home or self-care (01) ==
LOC: INF 04:19
PROVIDERS: Internal Medicine Gastroenterology; PCP Nurse Practitioner Family; Visit Provider Nurse Practitioner Acute Care
DX: K50.90 Crohn's disease, unspecified, without complications (principal)
CPT/HCPCS: 80076; 85027; 96365; 96366; 86140; Q5103

== ENCOUNTER 2024-12-26 01:15 | Outpatient (RCR) | payer MEDICARE, MEDICAID, SELFPAY ==
[2024-12-26] VITALS (8 sets, daily range): BP systolic 125–134; BP diastolic 81–95; PULSE 77–86; RESP 18; TEMP 36.3–36.6; O2SAT 96–99
[2024-12-26] MEDS: Normal Saline Flush 10 ML SYR IVP (11:55)
== END 2025-01-19 23:59 | disposition home or self-care (01) ==
LOC: INF 01:15
PROVIDERS: PCP Nurse Practitioner Family; Visit Provider Nurse Practitioner Acute Care
DX: K50.90 Crohn's disease, unspecified, without complications (principal)
CPT/HCPCS: 96365; 96366; Q5103

== ENCOUNTER 2025-02-20 03:52 | Outpatient (RCR) | payer MEDICARE, MEDICAID, SELFPAY ==
[2025-02-20 11:15] VITALS: BP 135/88; PULSE 91; RESP 19; TEMP 36.3; O2SAT 96
[2025-02-20] MEDS: Normal Saline Flush 10 ML SYR IVP (11:39)
[2025-02-20 11:40] LABS: HCT 44.9 % (40.0-50.0); HGB 14.9 g/dL (13.5-17.5); MCH 28.7 pg (27.0-33.0); MCHC 33.2 % (32.0-36.0); MCV 87 fL (80-95); MPV 10.8 fL (8.0-11.0); Platelet Count 172 10^3/uL (130-400); RBC 5.19 10^6/uL (4.36-5.78); RDW 13.2 % (11.8-14.1); RDW-SD 41.9 fL; WBC 6.69 10^3/uL (4.4-10.8)
[2025-02-20 11:54] LABS: ALT 47 U/L (16-63); AST 16 U/L (15-37); Albumin 3.9 g/dL (3.4-5.0); Alkaline Phosphatase 80 U/L (46-116); Bilirubin, Direct 0.1 mg/dL (0.0-0.2); Bilirubin, Total 0.4 mg/dL (0.2-1.0); Total Protein 7.7 g/dL (6.4-8.2)
[2025-02-20 11:55] LABS: C-Reactive Protein < 0.50 mg/dL (<or=0.5)
[2025-02-20 12:04] VITALS: BP 130/82; PULSE 78; RESP 20; TEMP 36.4; O2SAT 97
[2025-02-20 12:32] VITALS: BP 126/80; PULSE 68; RESP 20; TEMP 36.4; O2SAT 97
[2025-02-20 12:50] VITALS: BP 117/80; PULSE 72; RESP 20; TEMP 36.4; O2SAT 99
[2025-02-20 13:10] VITALS: BP 133/77; PULSE 56; RESP 18; TEMP 36.4; O2SAT 98
[2025-02-20 13:40] VITALS: BP 131/85; PULSE 69; RESP 20; TEMP 36.3; O2SAT 98
== END 2025-03-21 23:59 | disposition home or self-care (01) ==
LOC: INF 03:52
PROVIDERS: PCP Nurse Practitioner Family; Visit Provider Nurse Practitioner Acute Care
DX: K50.90 Crohn's disease, unspecified, without complications (principal)
CPT/HCPCS: 36415; 80076; 85027; 96365; 96366; 86140; Q5103

== ENCOUNTER 2025-04-17 02:04 | Outpatient (CLI) | payer MEDICARE, MEDICAID, SELFPAY ==
[2025-04-17 11:24] VITALS: BP 112/77; PULSE 77; RESP 19; TEMP 36.3; O2SAT 96
[2025-04-17] MEDS: Normal Saline Flush 10 ML SYR IVP (11:29)
[2025-04-17] MEDS: NORMAL SALINE IVPB (11:29)
[2025-04-17] MEDS: INFLIXIMAB DYYB IVPB (11:29)
[2025-04-17 11:45] VITALS: BP 114/76; PULSE 57; RESP 19; TEMP 36; O2SAT 99
[2025-04-17 12:40] VITALS: BP 125/85; PULSE 66; RESP 20; TEMP 36.4; O2SAT 96
== END 2025-04-17 02:05 | disposition home or self-care (01) ==
LOC: INF 02:04
PROVIDERS: PCP Nurse Practitioner Family; Visit Provider Nurse Practitioner Acute Care
DX: K50.819 Crohn's disease of both small and large intestine with unspecified complications (principal)
CPT/HCPCS: 96365; Q5103

== ENCOUNTER 2025-06-12 01:58 | Outpatient (CLI) | payer MEDICARE, MEDICAID, SELFPAY ==
[2025-06-12 12:40] VITALS: BP 138/91; PULSE 101; RESP 18; TEMP 36; O2SAT 97
[2025-06-12] MEDS: NORMAL SALINE IVPB (12:40)
[2025-06-12] MEDS: Normal Saline Flush 10 ML SYR IVP (12:40)
[2025-06-12] MEDS: INFLIXIMAB DYYB IVPB (12:40)
[2025-06-12 12:45] LABS: Hemoglobin A1C 5.5 % (<5.7)
[2025-06-12 12:51] LABS: Cholesterol 317 mg/dL (<200); HDL Cholesterol 33 mg/dL (>or=40); Triglyceride 529 mg/dL (<150)
[2025-06-12 13:08] VITALS: BP 121/84; PULSE 100; RESP 18; TEMP 36.1; O2SAT 97
[2025-06-12 13:09] LABS: LDL CHOLESTEROL 224 mg/dL (<100)
[2025-06-12 13:47] VITALS: BP 145/87; PULSE 86; RESP 18; TEMP 36.6; O2SAT 97
== END 2025-06-12 01:59 | disposition home or self-care (01) ==
LOC: INF 01:58
PROVIDERS: PCP Nurse Practitioner Family; Visit Provider Nurse Practitioner Acute Care
DX: K50.819 Crohn's disease of both small and large intestine with unspecified complications (principal); Z13.1 Encounter for screening for diabetes mellitus; Z13.6 Encounter for screening for cardiovascular disorders
CPT/HCPCS: 36415; 80061; 83721; 96365; 83036; Q5103

== ENCOUNTER 2025-08-07 00:33 | Outpatient (CLI) | payer MEDICARE, MEDICAID, SELFPAY ==
[2025-08-07 12:27] VITALS: BP 133/80; PULSE 78; RESP 19; TEMP 36.4; O2SAT 99
[2025-08-07] MEDS: Normal Saline Flush 10 ML SYR IVP (12:34)
[2025-08-07] MEDS: NORMAL SALINE IVPB (12:34)
[2025-08-07] MEDS: INFLIXIMAB DYYB IVPB (12:34)
[2025-08-07 12:42] LABS: HCT 48.1 % (40.0-50.0); HGB 16.2 g/dL (13.5-17.5); MCH 28.7 pg (27.0-33.0); MCHC 33.7 % (32.0-36.0); MCV 85 fL (80-95); MPV 10.6 fL (8.0-11.0); Platelet Count 204 10^3/uL (130-400); RBC 5.64 10^6/uL (4.36-5.78); RDW 13.2 % (11.8-14.1); RDW-SD 41.1 fL; WBC 6.85 10^3/uL (4.4-10.8)
[2025-08-07 12:45] VITALS: BP 114/76; PULSE 102; RESP 18; TEMP 36.6; O2SAT 98
[2025-08-07 13:03] LABS: C-Reactive Protein 0.51 mg/dL (<=0.50)
[2025-08-07 13:05] LABS: ALT 46 U/L (10-49); AST 26 U/L (<34); Albumin 4.8 g/dL (3.2-5.0); Alkaline Phosphatase 85 U/L (46-116); Bilirubin, Direct 0.3 mg/dL (<=0.3); Bilirubin, Total 1.6 mg/dL (0.2-1.2); Total Protein 8.4 g/dL (5.7-8.2)
== END 2025-08-07 00:34 | disposition home or self-care (01) ==
LOC: INF 00:33
PROVIDERS: PCP Nurse Practitioner Family; Visit Provider Nurse Practitioner Acute Care
DX: K50.819 Crohn's disease of both small and large intestine with unspecified complications (principal)
CPT/HCPCS: 36415; 80076; 85027; 96365; 86140; Q5103